=== PATIENT | male | born 1950 | race Caucasian/White ===

== ENCOUNTER 2019-05-23 10:33 | Emergency (ER) | payer MEDICARE, MEDICAID, SELFPAY ==
[2019-05-23] VITALS (8 sets, daily range): BP systolic 106–141; BP diastolic 45–83; PULSE 71–81; RESP 18–20; TEMP 36.6; O2SAT 91–95; BMI 53.0
--- NOTE | 2019-05-23 10:43 | ED_ITS ---
Documented by User: PERLITA Bernal 05/25/19 01:18 HPI - Extremity Problem General: Chief complaint: Extremity Problem,Nontraumatic Stated complaint: right toe wound Time Seen by Provider: 05/23/19 10:43 History of Present Illness: HPI Narrative: Patient is a 68-year-old male comes in with a wound on his right great toe. He has a past medical history of diabetes, hypertension and COPD. Patient noticed wound on Thursday. He denies any fever or chills or pain with wound. Patient states he has diabetic neuropathy in his feet and has no sensation to feet. Denies any chest pain, shortness of breath, upper respiratory symptoms, abdominal pain, nausea, vomiting, dysuria, hematuria, diarrhea, constipation, blood in stool. Review of Systems General: Reports: 10 or more systems reviewed and unremarkable except in HPI and below PFSH ED PFSH: Statuses (acute, chronic, etc) shown below reflect problem list status as previously entered and may not be historically accurate Social History Smoking and tobacco status: current every day smoker Physical Exam Const: COMMON NORMALS: oriented x3 HENMT: COMMON NORMALS: normocephalic HEAD & SCALP: normocephalic MOUTH: oral and palatal mucosa normal THROAT: posterior oropharynx normal and uvula midline Neck/C-Spine: COMMON NORMALS: supple GENERAL: Yes normal visual inspection Resp: COMMON NORMALS: normal respiratory effort, no retractions, no use of accessory muscles and clear to auscultation bilaterally AUSCULTATION: clear to auscultation bilaterally and diminished lung sounds (mild) bilateral Cardio: COMMON NORMALS: regular rate, regular rhythm, S1 normal heart sound, S2 normal heart sound, no gallops, no clicks, no murmurs and peripheral pulses 2+ throughout RATE: regular rate RHYTHM: regular rhythm HEART SOUNDS: S1 normal and S2 normal PERIPHERAL PULSES: pulses 2+ throughout GI: COMMON NORMALS: normal to inspection, nondistended, normoactive bowel sounds, soft to palpation, non-tender and no masses PALPATION: Yes soft : COMMON NORMALS: Yes no CVA tenderness BLADDER/KIDNEY EXAM: Yes no CVA tenderness Back/Pelvis: COMMON NORMALS: no CVA tenderness Extremity: NARRATIVE EXTREMITY EXAM: Patient has an ulcer on right big toe. There is some necrotic skin tissue over the proximal phalanx of the great toe in goes up to first MP joint. There is erythema, warmth and swelling that has moved up into the foot and some erythema and warmth to lower leg. Patient felt tenderness upon palpation above the right ankle in the Right lower leg. RIGHT LOWER EXTREMITY: Yes foot & digits (Ulcer to right great toe. Necrotic skin tissue, erythema and warmth) Right foot and digits: Yes inspection, Yes palpation (no pain or sensation to foot upon palpation.), Yes ROM (normal) and Yes neurovascular exam (vascular intact, no sensation to foot) Neuro: COMMON NORMALS: oriented x3 and moves all extremities Course ED course: I spoke with Dr. Livingston about patient's case. He told me to give IV Vancomycin and then put him in for a Wound clinic referral. Vital Signs: Vital signs: Vital Signs Temperature 97.9 F 05/23/19 10:34 Pulse Rate 72 05/23/19 14:36 Respiratory Rate 18 05/23/19 14:36 Blood Pressure 118/71 05/23/19 14:36 Pulse Oximetry 91 05/23/19 14:36 MDM - Extremity (Nontraumatic) Lab Data: Attestation: I reviewed the patient's lab results. Labs: Lab Results 05/23/19 05/23/19 05/23/19 Range/Units 11:17 11:17 11:17 WBC 17.3 H (4.0-10.0) 10^3/ uL RBC 4.97 (4.1-5.3) 10^6/u L Hgb 14.6 (11.7-16.6) g/dL Hct 44.2 (42.0-52.0) % MCV 88.9 (80-94) fL MCH 29.4 (28.0-34.0) pg MCHC 33.0 (30.0-36.0) g/dL RDW 13.1 (12.1-15.1) % Plt Count 283 (130-400) 10^3/c mm MPV 10.7 H (7.4-10.4) fL Neut % (Auto) 83.6 % Lymph % (Auto) 7.5 % [place] % (Auto) 7.4 % Eos % (Auto) 0.9 % Baso % (Auto) 0.2 % Neut # (Auto) 14.4 H (1.8-7.7) 10^3/u L Lymph # (Auto) 1.3 (0.8-4.8) 10^3/u L [place] # (Auto) 1.3 H (0.2-0.9) 10^3/u L Eos # (Auto) 0.2 (0.0-0.8) 10^3/u L Baso # (Auto) 0.0 (0.0-0.1) 10^3/u L Nucleated RBC % (a uto) 0 % Nucleated RBCs # 0.0 /100WBC ESR 71 H (0-10) mm/hr Sodium 130 L (136-145) mmol/L Potassium 4.8 (3.5-5.1) mmol/L Chloride 91 L (98-107) mmol/L Carbon Dioxide 23 (22-29) mmol/L Anion Gap 20.8 H (5-19) BUN 29 H (8-23) mg/dL Creatinine 1.7 H (0.7-1.2) mg/dL GFR Calculation 40.3 L (90-130) mL/min Glucose 324 H (74-106) mg/dL Calcium 9.7 (8.8-10.2) mg/Dl Total Bilirubin 0.3 (0.15-1.2) mg/dL AST 15 (0-40) U/L ALT 18 (0-41) U/L Alkaline Phosphata se 110 (40-130) IU/L C-Reactive Protein 136.4 H (0.0-4.9) mg/L Total Protein 7.6 (6.6-8.7) g/dL Albumin 3.4 L (3.5-5.2) g/dL Globulin 4.2 (1.3-4.6) g/dL Procalcitonin 0.25 (0-0.8) ng/mL Imaging Data^: US Vascular: Attestation: I personally reviewed and interpreted this imaging study as follows: (I reviewed the results the laboratory mechanic helper gave to me.) My impression: Below are the results I received from the US tech. Right Ankle Brachial index results Right Brachial :106 ankle (PT) 77 index 0.66 Ankle (DP) 85 Index 0.73 Left Brachial :116 ankle (PT) 98 index 0.84 Ankle (DP) 83 Index 0.72 Xray Ortho: Radiologist's impression: [address] [address] XRay Report Signed Patient: Cecilio Díaz Unit #: [id number] : 1950 Age/Sex: 68 / M ADM Date: 05/23/19 Loc: ER Room/Bed: Attending Dr: Ordering Provider/Ordering MD: Gadiel Romo Date of Service: 05/23/19 Procedure(s): XR foot RT 2V 88720 Accession Number(s): [id number] Report Number: [id number] WS: [id number] RIGHT FOOT: 2 VIEW(S) TECHNIQUE: PA and lateral. HISTORY: Big toe diabetic ulcer and infection COMPARISON: None available. No acute fracture or dislocation. Soft tissue ulceration over the distal first toe measures 11 x 11 mm. Soft tissue defect extends to the terminal tuft of the first toe. No definite osteomyelitis although there is some osteopenia. No foreign bodies. XR/XR foot RT 2V 85531 IMPRESSION: 1. Soft tissue ulceration over the distal first toe measures 11 x 11 mm. Ulceration extends to the terminal tuft. 2. Cannot confirm osteomyelitis radiographically. Dictated By: Rosio Shah DO Signed By: Rosio Shah DO Signed Date/Time: 05/23/19 1209 DD/ 1207 Discharge Plan Discharge Patient Disposition: Home, Self-Care Clinical Impression: Diabetic ulcer of foot associated with diabetes mellitus due to underlying condition, limited to breakdown of skin Qualifiers: Diabetic foot ulcer location: toe Laterality: right Qualified Code(s): E08.621 - Diabetes mellitus due to underlying condition with foot ulcer Condition: Stable Prescriptions: New levofloxacin 750 mg tablet 750 mg PO DAILY 14 Days Qty: 14 RF: 0 No Action meloxicam 15 mg tablet 15 mg PO DAILY RF: 0 metformin 1,000 mg tablet 1,000 mg PO BID RF: 0 glimepiride 4 mg tablet 4 mg PO BID RF: 0 hydrochlorothiazide 25 mg tablet 25 mg PO DAILY RF: 0 ergocalciferol (vitamin D2) [Vitamin D2] 50,000 unit Capsule See Rx Instructions .ROUTE .COMPLEX RF: 0 Ventolin HFA 90 mcg/actuation HFA aerosol inhaler 1 puff INHALATION QID PRN (Reason: Shortness Of Breath) RF: 0 fluoxetine 20 mg capsule 20 mg PO DAILY RF: 0 dicyclomine 10 mg capsule 10 mg PO TID RF: 0 metoprolol tartrate 25 mg tablet 25 mg PO BID RF: 0 Xopenex HFA 45 mcg/actuation HFA aerosol inhaler 2 puff INHALATION QID RF: 0 Symbicort 160-4.5 mcg/actuation HFA aerosol inhaler 2 puff INHALATION BID RF: 0 Invokana 300 mg tablet 300 mg PO DAILY RF: 0 Discharge Orders: Discharge Order (Routine); Ordered 05/23/19 Ordered By: Gadiel Romo Referrals: Ector Peña MD [Family Provider] - Discharge Diet: Regular Discharge Activity: Increase activity as tolerated Patient Instructions: Levofloxacin (By mouth), Wound Infection (ED), Chronic Wound Care (ED), Wound Healing and Your Diet (ED) Activity Restrictions/Additional Instructions: Clinic will be calling you to set up an appointment to evaluate and treat wound on right foot. Take full course of antibiotics as prescribed. Drink plenty of fluids and take Tylenol for fever control. Discharge Date/Time: 05/23/19 14:55 Coding Level of Care Code ED Outbound Sales Specialist for Chg Fwd Documented by User: Jean Anne DO 05/25/19 06:44 HPI - Extremity Problem General: Chief complaint: Extremity Problem,Nontraumatic Stated complaint: right toe wound Time Seen by Provider: 05/23/19 10:43 PFSH ED PFSH: Statuses (acute, chronic, etc) shown below reflect problem list status as previously entered and may not be historically accurate Social History Smoking and tobacco status: current every day smoker Course Vital Signs: Vital signs: Vital Signs Temperature 97.9 F 05/23/19 10:34 Pulse Rate 72 01/20/20 14:36 Respiratory Rate 18 05/23/19 14:36 Blood Pressure 118/71 05/23/19 14:36 Pulse Oximetry 91 05/23/19 14:36 MDM - Extremity (Nontraumatic) Lab Data: Labs: Lab Results 05/23/19 05/23/19 05/23/19 Range/Units 11:17 11:17 11:17 WBC 17.3 H (4.0-10.0) 10^3/ uL RBC 4.97 (4.1-5.3) 10^6/u L Hgb 14.6 (11.7-16.6) g/dL Hct 44.2 (42.0-52.0) % MCV 88.9 (80-94) fL MCH 29.4 (28.0-34.0) pg MCHC 33.0 (30.0-36.0) g/dL RDW 13.1 (12.1-15.1) % Plt Count 283 (130-400) 10^3/c mm MPV 10.7 H (7.4-10.4) fL Neut % (Auto) 83.6 % Lymph % (Auto) 7.5 % [place] % (Auto) 7.4 % Eos % (Auto) 0.9 % Baso % (Auto) 0.2 % Neut # (Auto) 14.4 H (1.8-7.7) 10^3/u L Lymph # (Auto) 1.3 (0.8-4.8) 10^3/u L [place] # (Auto) 1.3 H (0.2-0.9) 10^3/u L Eos # (Auto) 0.2 (0.0-0.8) 10^3/u L Baso # (Auto) 0.0 (0.0-0.1) 10^3/u L Nucleated RBC % (a uto) 0 % Nucleated RBCs # 0.0 /100WBC ESR 71 H (0-10) mm/hr Sodium 130 L (136-145) mmol/L Potassium 4.8 (3.5-5.1) mmol/L Chloride 91 L (98-107) mmol/L Carbon Dioxide 23 (22-29) mmol/L Anion Gap 20.8 H (5-19) BUN 29 H (8-23) mg/dL Creatinine 1.7 H (0.7-1.2) mg/dL GFR Calculation 40.3 L (90-130) mL/min Glucose 324 H (74-106) mg/dL Calcium 9.7 (8.8-10.2) mg/Dl Total Bilirubin 0.3 (0.15-1.2) mg/dL AST 15 (0-40) U/L ALT 18 (0-41) U/L Alkaline Phosphata se 110 (40-130) IU/L C-Reactive Protein 136.4 H (0.0-4.9) mg/L Total Protein 7.6 (6.6-8.7) g/dL Albumin 3.4 L (3.5-5.2) g/dL Globulin 4.2 (1.3-4.6) g/dL Procalcitonin 0.25 (0-0.8) ng/mL Discharge Plan Discharge Patient Disposition: Home, Self-Care Clinical Impression: Diabetic ulcer of foot associated with diabetes mellitus due to underlying condition, limited to breakdown of skin Qualifiers: Diabetic foot ulcer location: toe Laterality: right Qualified Code(s): E08.621 - Diabetes mellitus due to underlying condition with foot ulcer Condition: Stable Prescriptions: New levofloxacin 750 mg tablet 750 mg PO DAILY 14 Days Qty: 14 RF: 0 No Action meloxicam 15 mg tablet 15 mg PO DAILY RF: 0 metformin 1,000 mg tablet 1,000 mg PO BID RF: 0 glimepiride 4 mg tablet 4 mg PO BID RF: 0 hydrochlorothiazide 25 mg tablet 25 mg PO DAILY RF: 0 ergocalciferol (vitamin D2) [Vitamin D2] 50,000 unit Capsule See Rx Instructions .ROUTE .COMPLEX RF: 0 Ventolin HFA 90 mcg/actuation HFA aerosol inhaler 1 puff INHALATION QID PRN (Reason: Shortness Of Breath) RF: 0 fluoxetine 20 mg capsule 20 mg PO DAILY RF: 0 dicyclomine 10 mg capsule 10 mg PO TID RF: 0 metoprolol tartrate 25 mg tablet 25 mg PO BID RF: 0 Xopenex HFA 45 mcg/actuation HFA aerosol inhaler 2 puff INHALATION QID RF: 0 Symbicort 160-4.5 mcg/actuation HFA aerosol inhaler 2 puff INHALATION BID RF: 0 Invokana 300 mg tablet 300 mg PO DAILY RF: 0 Discharge Orders: Discharge Order (Routine); Ordered 05/23/19 Ordered By: Gadiel Romo Referrals: Ector Peña MD [Family Provider] - Discharge Diet: Regular Discharge Activity: Increase activity as tolerated Patient Instructions: Levofloxacin (By mouth), Wound Infection (ED), Chronic Wound Care (ED), Wound Healing and Your Diet (ED) Activity Restrictions/Additional Instructions: Clinic will be calling you to set up an appointment to evaluate and treat wound on right foot. Take full course of antibiotics as prescribed. Drink plenty of fluids and take Tylenol for fever control. Discharge Date/Time: 05/23/19 14:55 Coding Level of Care Code ED Outbound Sales Specialist for Nirmala Patel
--- NOTE | 2019-05-23 10:53 | XR_ITS ---
WS: [id number] RIGHT FOOT: 2 VIEW(S) TECHNIQUE: PA and lateral. HISTORY: Big toe diabetic ulcer and infection COMPARISON: None available. No acute fracture or dislocation. Soft tissue ulceration over the distal first toe measures 11 x 11 mm. Soft tissue defect extends to t he terminal tuft of the first toe. No definite osteomyelitis although there is some osteopenia. No foreign bodies. XR/XR foot RT 2V 35402 IMPRESSION: 1. Soft tissue ulceration over the distal first toe measures 11 x 11 mm. Ulcer ation extends to the terminal tuft. 2. Cannot confirm osteomyelitis radiographically.
--- NOTE | 2019-05-23 11:02 | PC.NURSE ---
xray at bedside
--- NOTE | 2019-05-23 11:05 | USCV_ITS ---
Cecilio Díaz Age: 68 Gender: M : 1950 Exam Date: 05/23/2019 11:06 Ordering Phys: Gadiel Romo Technologist: Exam [place] [facility] [place] Indication: non healing ulcer RIGHT LEFT Brachial 106.00 mmHg Brachial 116.00 mmHg Pressure (mmHg) Waveform Pressure (mmHg) Waveform 77.00 DATABASE OPERATOR 98.00 85.00 DPA 83.00 0.73 Ankle/Brachial Index 0.84 FINDINGS Resting KATE of 0.73 on the right side and 0.84 on the left side CONCLUSIONS Abnormal resting ABIs bilaterally, suggestive of moderate peripheral artery disease on the right side and mild to moderate disease on the left side Dr Izzy De Leon MD [facility] (Electronically Signed) Final Date: 24 May 2019 07:40 S
[2019-05-23 11:23] LABS: Basophils % 0.2 %; Eosinophils # 0.2 10^3/uL (0.0-0.8); Eosinophils % 0.9 %; Hematocrit 44.2 % (42.0-52.0); Hemoglobin 14.6 g/dL (11.7-16.6); Lymphocytes # 1.3 10^3/uL (0.8-4.8); Lymphocytes % 7.5 %; Mean Corpuscular Hemoglobin 29.4 pg (28.0-34.0); Mean Corpuscular Volume 88.9 fL (80-94); Mean Platelet Volume 10.7 fL (7.4-10.4); Monocytes # 1.3 10^3/uL (0.2-0.9); Monocytes % 7.4 %; Neutrophils # 14.4 10^3/uL (1.8-7.7); Neutrophils % 83.6 %; Nucleated Red Blood Cells % 0 %; Platelet Count 283 10^3/cmm (130-400); Red Blood Count 4.97 10^6/uL (4.1-5.3); Red Cell Distribution Width 13.1 % (12.1-15.1); White Blood Count 17.3 10^3/uL (4.0-10.0)
--- NOTE | 2019-05-23 11:29 | PC.NURSE ---
US performed at bedside
[2019-05-23 11:40] LABS: Alanine Aminotransferase 18 U/L (0-41); Albumin Level 3.4 g/dL (3.5-5.2); Alkaline Phosphatase 110 IU/L (40-130); Anion Gap 20.8 (5-19); Aspartate Amino Transferase 15 U/L (0-40); Blood Urea Nitrogen 29 mg/dL (8-23); C Reactive Protein 136.4 mg/L (0.0-4.9); Calcium 9.7 mg/Dl (8.8-10.2); Carbon Dioxide 23 mmol/L (22-29); Chloride 91 mmol/L (98-107); Globulin 4.2 g/dL (1.3-4.6); Glomerular Filtration Rate 40.3 mL/min (90-130); Glucose 324 mg/dL (74-106); Potassium 4.8 mmol/L (3.5-5.1); Sodium 130 mmol/L (136-145); Total Bilirubin 0.3 mg/dL (0.15-1.2); Total Protein 7.6 g/dL (6.6-8.7)
[2019-05-23 12:01] LABS: Procalcitonin 0.25 ng/mL (0-0.8)
[2019-05-23 12:47] LABS: Erythrocyte Sedimentation Rate 71 mm/hr (0-10)
[2019-05-23] MEDS: sodium chloride 0.9% 500 ML IV (13:29)
[2019-05-23] MEDS: piperacillin-tazobactam 4.5 GM in sodium chloride 0.9% (plus) 50 ML IV (13:46)
--- NOTE | 2019-05-24 10:50 | DCPLANNER ---
clubhouse manager was asked to schedule a follow up appointment for patient with wound care. clubhouse manager called the Wound Care clinic, spoke with Екатерина, a follow up appointment is scheduled for Saturday, May 25, 2019 at 10:00 with Latoya JOHNSON. clubhouse manager called patient and gave patient the appointment information.
--- NOTE | 2019-05-30 11:58 | DCPLANNER ---
Patient did not attend appointment scheduled for 05.25.19 with Wound Care.
== END 2019-05-23 14:55 | disposition home or self-care (01) ==
PROVIDERS: Emergency Provider Physician Assistant; Family Provider Internal Medicine
DX: E11.621 Type 2 diabetes mellitus with foot ulcer (principal); L97.519 Non-pressure chronic ulcer of other part of right foot with unspecified severity; Z79.84 Long term (current) use of oral hypoglycemic drugs; F17.210 Nicotine dependence, cigarettes, uncomplicated; I10 Essential (primary) hypertension; J44.9 Chronic obstructive pulmonary disease, unspecified
CPT/HCPCS: 36415; 73620; 80053; 84145; 85025; 85651; 86140; 87040; 87070; 87077; 87186; 87205; 93922; 96360; 96365; 96366; 99282; J2543; J3370; J7040

== ENCOUNTER 2019-06-23 14:20 | Inpatient (IN) | payer MEDICARE, MEDICAID, SELFPAY ==
[2019-06-23] VITALS (9 sets, daily range): BP systolic 137–180; BP diastolic 58–80; PULSE 61–75; RESP 16–18; TEMP 36.3–36.4; O2SAT 92–96; BMI 49.6
--- NOTE | 2019-06-23 16:20 | W.ED.EXTPRO ---
HPI - Extremity Problem General: Chief complaint: Extremity Problem,Nontraumatic Stated complaint: worsening foot infection Time Seen by Provider: 06/23/19 16:15 Review of Systems Psych: Denies: sleeping more PFSH ED PFSH: Social History (Updated 05/25/19 @ 10:56 by CARLOS Louise) Smoking and tobacco status: current every day smoker Alcohol intake: never Course Vital Signs: Vital signs: Vital Signs Temperature 97.6 F 06/23/19 14:51 Pulse Rate 75 06/23/19 14:51 Respiratory Rate 18 06/23/19 14:51 Blood Pressure 137/58 06/23/19 14:51 Pulse Oximetry 93 06/23/19 14:51 Discharge Plan Discharge Prescriptions: No Action metoprolol tartrate 25 mg tablet 25 mg PO BID 90 Days Qty: 180 RF: 3 metformin 1,000 mg tablet 1,000 mg PO BID Qty: 60 RF: 3 meloxicam 15 mg tablet 15 mg PO DAILY Qty: 90 RF: 3 hydrochlorothiazide 25 mg tablet 25 mg PO DAILY Qty: 90 RF: 3 glimepiride 4 mg tablet 4 mg PO BID RF: 0 ergocalciferol (vitamin D2) [Vitamin D2] 50,000 unit Capsule See Rx Instructions .ROUTE .COMPLEX RF: 0 Ventolin HFA 90 mcg/actuation HFA aerosol inhaler 1 puff INHALATION QID PRN (Reason: Shortness Of Breath) RF: 0 fluoxetine 20 mg capsule 20 mg PO DAILY RF: 0 dicyclomine 10 mg capsule 10 mg PO TID RF: 0 Xopenex HFA 45 mcg/actuation HFA aerosol inhaler 2 puff INHALATION QID RF: 0 Symbicort 160-4.5 mcg/actuation HFA aerosol inhaler 2 puff INHALATION BID RF: 0 Invokana 300 mg tablet 300 mg PO DAILY RF: 0 Coding Level of Care Code ED Trade Sales Assistant for Nirmala Patel
--- NOTE | 2019-06-23 16:21 | XR_ITS ---
WS: [id number] XR foot RT min 3V* [id number] REASON FOR EXAM: toe cellulitis FINDINGS: Soft tissue swelling surrounding the phalanx of the first digit irregularity and there appe ars to be a laceration along the distal aspects. These changes are increased since previous exam of J anuary 2011. There is a small soft tissue distention which may represent a small abscess measures 1.6 cm along the medial proximal first phalanx. A tailor's bunion is seen. Spurring off the talus anteriorly is noted. There is reabsorption of the cuneiforms anteriorly also. A large calcaneal spur is evident. XR/XR foot RT min 3V* 43022 IMPRESSION: Irregularity along the great toe with changes since the previous exam suggestin g cellulitis and questionable localized abscess. Calcaneal spur Tailors bunion Spurring off the talus anteriorly.
[2019-06-23] MEDS: vancomycin 1,000 MG in sodium chloride 0.9% 250 ML 250 MG IV (16:52)
[2019-06-23 16:56] LABS: Basophils # 0.1 10^3/uL (0.0-0.1); Basophils % 0.4 %; Eosinophils # 0.2 10^3/uL (0.0-0.8); Eosinophils % 1.4 %; Hematocrit 44.5 % (42.0-52.0); Hemoglobin 14.2 g/dL (11.7-16.6); Lymphocytes # 1.8 10^3/uL (0.8-4.8); Lymphocytes % 15.1 %; Mean Corpuscular HGB Conc 31.9 g/dL (30.0-36.0); Mean Corpuscular Hemoglobin 28.7 pg (28.0-34.0); Mean Corpuscular Volume 90.1 fL (80-94); Mean Platelet Volume 11.3 fL (7.4-10.4); Monocytes # 0.9 10^3/uL (0.2-0.9); Monocytes % 7.4 %; Neutrophils % 75.4 %; Nucleated Red Blood Cells % 0 %; Platelet Count 308 10^3/cmm (130-400); Red Blood Count 4.94 10^6/uL (4.1-5.3); Red Cell Distribution Width 13.1 % (12.1-15.1)
--- NOTE | 2019-06-23 17:23 | ED_ITS ---
Entered by Veronika Caraballo, acting as scribe for Dao James MD Jun 23, 2019 14:20 HPI - Extremity Problem General: Chief complaint: Extremity Problem,Nontraumatic Stated complaint: worsening foot infection Time Seen by Provider: 06/23/19 16:15 Source: patient Mode of arrival: EMS Limitations: no limitations History of Present Illness: HPI Narrative: 68 yo male presents with R great toe infection. pt states the home health nurse has been taking care of his toe but she sent him to ED for infection and redness. pt states he has not seen a doctor yet for this. pt has drainage from toe. pt denies any other symptoms at this time. MD Complaint: extremity pain and extremity swelling (R great toe infection and wound) Onset (ago): day(s) (several days ago) Pain Consistency: constant Location: lower extremity and toe (R great toe) Relieving factors: nothing Exacerbating factors: range of motion, walking, exertion and other (redness and infection) Associated symptoms: Reports no associated symptoms; Deny chest pain, fever(s) or rash Review of Systems Const: Denies: fever, chills, body aches or change in appetite Eyes: Denies: blurry vision or eye discomfort ENMT: Denies: throat pain or dental pain Card: Denies: chest pain Resp: Denies: shortness of breath GI: Denies: abdominal pain, nausea, vomiting or diarrhea : Denies: painful urination Musc: Denies: neck pain or back pain Skin/Breast: Denies: rash Neuro: Denies: headache Psych: Denies: sleeping more Mega/Lymph: Denies: easy bruising All/Imm: Denies: hives PFS ED PFSH: Social History (Updated 05/25/19 @ 10:56 by CARLOS Louise) Smoking and tobacco status: current every day smoker Alcohol intake: never Physical Exam Const: COMMON NORMALS: no apparent distress, oriented x3 and healthy appearing HENMT: COMMON NORMALS: normocephalic and head/scalp atraumatic HEAD & SCALP: normocephalic and atraumatic Eye: COMMON NORMALS: PERRL and EOMs intact bilaterally PUPIL: Yes PERRL Neck/C-Spine: COMMON NORMALS: full ROM and supple Chest: COMMONS NORMALS: inspection of chest normal and palpation of chest normal Resp: COMMON NORMALS: normal respiratory effort, no retractions, no use of accessory muscles and clear to auscultation bilaterally AUSCULTATION: clear to auscultation bilaterally Cardio: COMMON NORMALS: regular rate, regular rhythm and no murmurs RATE: regular rate RHYTHM: regular rhythm GI: COMMON NORMALS: normal to inspection, nondistended, normoactive bowel sounds, soft to palpation, non-tender and no masses PALPATION: Yes soft Extremity: RIGHT LOWER EXTREMITY: Yes foot & digits (redness and swelling to R great toe) OTHER: Large ulcer to right toe with foul smell Neuro: COMMON NORMALS: oriented x3, moves all extremities and no focal motor deficits Psych: COMMON NORMALS: mental status grossly normal, thought process normal and cooperative THOUGHT PROCESS: normal thought process Course Vital Signs: Vital signs: Vital Signs Temperature 97.6 F 06/23/19 14:51 Pulse Rate 61 06/23/19 17:00 Respiratory Rate 18 06/23/19 17:00 Blood Pressure 152/76 06/23/19 16:44 Pulse Oximetry 95 06/23/19 17:00 MDM - Extremity (Nontraumatic) MDM Narrative: Medical decision making narrative: Patient presents here with ulcer to his right great toe that is worsening with cellulitis. Patient started on IV antibiotics here and I spoke to hospitalist along with Dr. Mac who is to see patient tonight. Patient has been stable while here with no signs of septic shock. Lab Data: Labs: Lab Results 06/23/19 06/23/19 Range/Units 16:43 17:15 WBC 12.0 H (4.0-10.0) 10^3/ uL RBC 4.94 (4.1-5.3) 10^6/u L Hgb 14.2 (11.7-16.6) g/dL Hct 44.5 (42.0-52.0) % MCV 90.1 (80-94) fL MCH 28.7 (28.0-34.0) pg MCHC 31.9 (30.0-36.0) g/dL RDW 13.1 (12.1-15.1) % Plt Count 308 (130-400) 10^3/c mm MPV 11.3 H (7.4-10.4) fL Neut % (Auto) 75.4 % Lymph % (Auto) 15.1 % [place] % (Auto) 7.4 % Eos % (Auto) 1.4 % Baso % (Auto) 0.4 % Neut # (Auto) 9.0 H (1.8-7.7) 10^3/u L Lymph # (Auto) 1.8 (0.8-4.8) 10^3/u L [place] # (Auto) 0.9 (0.2-0.9) 10^3/u L Eos # (Auto) 0.2 (0.0-0.8) 10^3/u L Baso # (Auto) 0.1 (0.0-0.1) 10^3/u L Nucleated RBC % (a uto) 0 % Nucleated RBCs # 0.0 /100WBC Sodium 133 L (136-145) mmol/L Potassium 5.1 (3.5-5.1) mmol/L Chloride 94 L (98-107) mmol/L Carbon Dioxide 27 (22-29) mmol/L Anion Gap 17.1 (5-19) BUN 24 H (8-23) mg/dL Creatinine 2.0 H (0.7-1.2) mg/dL GFR Calculation 33.4 L (90-130) mL/min Glucose 244 H (65-115) mg/dL Calculated Osmolal ity 281 L (285-295) mOsm/k g Calcium 10.0 (8.5-10.5) mg/dL Imaging Data^: xr right foot: Attestation: I personally reviewed and interpreted this imaging study as follows: Radiologist's impression: Patient: Cecilio Díaz Unit #: [id number] : 1950 Age/Sex: 68 / M ADM Date: 06/23/19 Loc: ER Room/Bed: Attending Dr: Ordering Provider/Ordering MD: Dao James MD Date of Service: 06/23/19 Procedure(s): XR foot RT min 3V* 14855 Accession Number(s): [id number] Report Number: [id number] WS: [id number] XR foot RT min 3V* [id number] REASON FOR EXAM: toe cellulitis FINDINGS: Soft tissue swelling surrounding the phalanx of the first digit irregularity and there appears to be a laceration along the distal aspects. These changes are increased since previous exam of May 23, 2011. There is a small soft tissue distention which may represent a small abscess measures 1.6 cm along the medial proximal first phalanx. A tailor's bunion is seen. Spurring off the talus anteriorly is noted. There is reabsorption of the cuneiforms anteriorly also. A large calcaneal spur is evident. XR/XR foot RT min 3V* [id number] IMPRESSION: Irregularity along the great toe with changes since the previous exam suggesting cellulitis and questionable localized abscess. Calcaneal spur Tailors bunion Spurring off the talus anteriorly. Discharge Plan Discharge Prescriptions: No Action metoprolol tartrate 25 mg tablet 25 mg PO BID 90 Days Qty: 180 RF: 3 metformin 1,000 mg tablet 1,000 mg PO BID Qty: 60 RF: 3 meloxicam 15 mg tablet 15 mg PO DAILY Qty: 90 RF: 3 hydrochlorothiazide 25 mg tablet 25 mg PO DAILY Qty: 90 RF: 3 glimepiride 4 mg tablet 4 mg PO BID RF: 0 ergocalciferol (vitamin D2) [Vitamin D2] 50,000 unit Capsule See Rx Instructions .ROUTE .COMPLEX RF: 0 Ventolin HFA 90 mcg/actuation HFA aerosol inhaler 1 puff INHALATION QID PRN (Reason: Shortness Of Breath) RF: 0 fluoxetine 20 mg capsule 20 mg PO DAILY RF: 0 dicyclomine 10 mg capsule 10 mg PO TID RF: 0 Xopenex HFA 45 mcg/actuation HFA aerosol inhaler 2 puff INHALATION QID RF: 0 Symbicort 160-4.5 mcg/actuation HFA aerosol inhaler 2 puff INHALATION BID RF: 0 Invokana 300 mg tablet 300 mg PO DAILY RF: 0 Coding Level of Care Code ED Education Courses Sales Representative for Chg Fwd Exam Comprehensive The documentation recorded by the Ilya yoon Bridget Annette, accurately r eflects the service I personally performed and the decisions made by Jacob amaya Korby, MD Jun 23, 2019 14:20
[2019-06-23 17:39] LABS: Anion Gap 17.1 (5-19); Blood Urea Nitrogen 24 mg/dL (8-23); Carbon Dioxide 27 mmol/L (22-29); Chloride 94 mmol/L (98-107); Creatinine Clr Calc Pharmacy 42.4712; Glomerular Filtration Rate 33.4 mL/min (90-130); Glucose 244 mg/dL (65-115); Osmolality Calculated 281 mOsm/kg (285-295); Potassium 5.1 mmol/L (3.5-5.1); Sodium 133 mmol/L (136-145)
--- NOTE | 2019-06-23 18:51 | P.HP_ITS ---
Providers/Chief Complaint Admitting Physician: Danny Hall Chief Complaint: r foot infection History of Present Illness Cecilio Díaz is a 68 year old pleasant gentleman with history of diabetes, hypertension, COPD, current smoker of 1 pack/day, recently with infection of toe of the right foot, having undergone a course of antibiotic 4 weeks ago with improvement in symptoms, again experienced worsening of symptoms starting 2 to 3 weeks ago, about 1 week ago noticed purulent drainage in the first toe of the right foot. Drainage had somewhat subsided, however, the toe continued to become swollen, reddish, and in the last day and 1/2 to 2 days has become open, with areas of cornified skin cracking, open ulceration without definitive shape, circumferential swelling, erythema, and foul-smelling. He denies any fever. D enies history of prior infection in the bone. He does not work barefoot at home, however, does soak his feet. He has been applying a topical antibiotic. Review of Systems Const: Denies: fever, chills, body aches or malaise Eyes: Denies: change in vision or eye redness ENMT: Denies: throat pain, oral sores/lesions or ear pain Card: Denies: chest pain, edema, pre-syncope or shortness of breath on exertion Resp: Denies: shortness of breath, productive cough, change in phlegm color or coughing up blood GI: Denies: abdominal pain, nausea, vomiting, diarrhea, constipation, blood in stool or black tarry stool : Denies: flank pain, difficulty urinating, urinary frequency or blood in urine Musc: Denies: back pain, joint swelling or redness Skin/Breast: Reports: rash, sores (First toe right foot) and new lesion Neuro: Denies: headache, numbness in extremities, weakness in extremities, dizziness, confusion or seizure-like activity Endo: Denies: excessive urination or excessive thirst Mega/Lymph: Denies: easy bleeding or purpura All/Imm: Denies: hives, throat swelling or tongue swelling Medications/Allergies Allergies Allergy/AdvReac Type Severity Reaction Status Date / Time No Known Allergies Allergy Verified 05/25/19 10:53 PFSH Acute PFSH: Medical History COPD (chronic obstructive pulmonary disease) Diabetes HTN (hypertension) Smoking addiction Surgical History No history of previous surgery Family History Other Healthy adult Social History Smoking and tobacco status: current every day smoker cigarettes Packs smoked per day: 1 Alcohol intake: never Substance/Drug Use: never Lives independently: Yes Household members: none Marital status: Single Current occupational status: retired Vitals/I&O/Wt Last Vital Signs Temp 97.6 F 06/23/19 14:51 Pulse 63 06/23/19 18:00 Resp 16 06/23/19 18:00 BP 180/80 06/23/19 18:00 Pulse Ox 95 06/23/19 18:00 Weight last 48 hrs Weight 127.006 kg Physical Exam Const: COMMON NORMALS: no apparent distress and oriented x3 OTHER: He is slightly hard of hearing, but pleasant and cooperative. He is disheveled with poor hygiene. HENMT: COMMON NORMALS: oropharynx normal TEETH & GINGIVA: Yes poor dentition Neck/C-Spine: COMMON NORMALS: no JVD Resp: COMMON NORMALS: normal respiratory effort and clear to auscultation bilaterally AUSCULTATION: clear to auscultation bilaterally and wheezes (Mild wheeze on the left) Cardio: COMMON NORMALS: no JVD, regular rhythm, S1 normal heart sound, S2 normal heart sound and no murmurs RHYTHM: regular rhythm HEART SOUNDS: S1 normal and S2 normal GI: COMMON NORMALS: normal to inspection, nondistended, normoactive bowel sounds, soft to palpation and non-tender PALPATION: Yes soft Extremity: COMMON NORMALS: no joint enlargement and no pedal edema RIGHT LOWER EXTREMITY: Yes foot & digits Right foot and digits: Yes other (Right first toe with circumferential swelling, open ulcerations, cornified cracked skin, fou l-smelling currently no drainage) Neuro: COMMON NORMALS: oriented x3 and moves all extremities Skin: COMMON NORMALS: no rashes or lesions noted RASHES: rashes noted (Cracked, edematous first right toe, with open ulcerations) WOUNDS: Yes wounds noted (First right toe with large areas of cracked skin, ulceration, w hitish cornified skin around the toenail,) Data : 06/23/19 16:43 06/23/19 17:15 Micro: Microbiology 06/23/19 16:43 Blood Culture - Preliminary Blood SPECIMEN COLLECTED 06/23/19 16:43 Blood Culture - Preliminary Blood SPECIMEN COLLECTED A&P Assessment and plan (1) Diabetic foot infection: Swollen, erythematous first right toe, with cracking of skin, multiple toes, thick cornified skin around the nail, currently no drainage, however, foul smell. He was soaking his feet at home, thus I would be concerned about possible pseudomonal involvement he received vancomycin in ER. Will continue. Will request wound culture. Blood cultures have been ordered. We will add the Zosyn and ciprofloxacin concern for possible pseudomonal infection. He denies any allergies. Appreciate podiatry assessment. Purulent drainage about a week ago he says this is some subsided, but still had something draining from there occasionally. May benefit from additional assessment for osteomyelitis. Requested for surgical shoe. Dressing changes with Santyl. Status: Acute Code(s): E11.628 - Type 2 diabetes mellitus with other skin complications; L08.9 - Local infection of the skin and subcutaneous tissue, unspecified (2) Smoking addiction: Discuss smoking cessation for 4 minutes with him. Encouraged him highly to quit given diabetes, hypertension, other underlying risk factors for cardiovascular disease, and with known peripheral vascular disease on recent arterial Doppler study. He verbalized understanding. He is agreeable with nicotine patch, gum for cravings while in the hospital. Status: Acute Code(s): F17.200 - Nicotine dependence, unspecified, uncomplicated (3) Diabetes: A1c back in October was 9.6. He takes oral medication at home, and states that he is adherent with therapy. Consistent carbohydrate diet. Insulin sliding scale while in the hospital. Status: Acute Code(s): E11.9 - Type 2 diabetes mellitus without complications (4) HTN (hypertension): Monitor blood pressures. Continue metoprolol, HCTZ Status: Acute Code(s): I10 - Essential (primary) hypertension (5) COPD (chronic obstructive pulmonary disease): Very mild wheeze on examination. Continue home inhalers. Continue to smoking cessation per Status: Acute Code(s): J44.9 - Chronic obstructive pulmonary disease, unspecified Attestations Medical Necessity Statement*: Admission of over 2 midnights is going to be required for assessment of management of diabetic foot infection with recurrence requiring IV antibiotics. Coding Level of Care Code Acute Breastfeeding Peer Counselor for [facility] Diagnoses Diabetic foot infection E11.628; L08.9 Smoking addiction F17.200 Diabetes E11.9 HTN (hypertension) I10 COPD (chronic obstructive pulmonary disease) J44.9
--- NOTE | 2019-06-23 20:20 | PC.PHAR ---
Creatinine clearance is 42.4712. Vancomycin is dosed at 1gm IVPB every 24 hours to produce a predicted trough level of 11.92 (population based pharmacokinetic analysis. A trough level has been ordered to be obtained before the fourth dose to confirm and adjust if needed. The Zosyn is dosed at 3.375gm IVPB every 8 hours, each dose to be infused over 4 hours per extended infusion protocol. Pharmacy will follow creatinine clearance levels daily and adjust for proper dosage as needed.
[2019-06-23 20:45] LABS: Glucose Point of Care 190 mg/dL (70-110)
--- NOTE | 2019-06-23 21:09 | P.CONIM_ITS ---
Providers/Reason For Consult Consulting Physican/Specialty*: Hospitalist Reason for Consult*: Right great toe wound Attending Physician: Danny Hall History of Present Illness History of Present Illness Cecilio Díaz is a 68 year old poorly controlled diabetic male with a right great toe wound approximately 1 month in duration. He states that the wound began mid May 2019, he was seen in the emergency department on May 23 for the toe wound and was discharged on oral Levaquin with wound care follow-up. Patient did not keep his wound care appointment. He has had poor compliance with medications and follow-up with healthcare. States that he lives alone in an apartment, does not have family in the area, he moved here from [place]. He states that he reported to the emergency department today due to foul- smelling wound and worsening appearance. Review of Systems General: Reports: 10 or more systems reviewed and unremarkable except in HPI and below Const: Denies: fever or chills Card: Denies: chest pain or palpitations Resp: Denies: productive cough GI: Denies: abdominal pain, nausea or vomiting : Denies: flank pain Musc: Reports: extremity swelling, joint pain, joint stiffness, limited range of motion and deformity Skin/Breast: Reports: skin swelling, sores, nail changes and change in hair Neuro: Reports: numbness in extremities, changes in sensation and difficulty walking Psych: Denies: suicidal ideation Mega/Lymph: Denies: easy bruising Meds/Allergies Home Medications and Allergies Home Medications Medication Instructions Recorded Confirmed Type albuterol sulfate [Ventolin HFA] 1 puff INHALATION QID PRN 05/23/19 06/23/19 History budesonide-formoterol [Symbicort] 2 puff INHALATION BID 05/23/19 06/23/19 History canagliflozin [Invokana] 300 mg PO DAILY 05/23/19 06/23/19 History dicyclomine 10 mg PO TID 05/23/19 06/23/19 History ergocalciferol (vitamin D2) See Rx Instructions .ROUTE .COMPLEX 05/23/19 06/23/19 History [Vitamin D2] fluoxetine 20 mg PO DAILY 05/23/19 06/23/19 History glimepiride 4 mg PO BID 05/23/19 06/23/19 History levalbuterol tartrate [Xopenex HFA] 2 puff INHALATION QID 05/23/19 06/23/19 History Allergies Allergy/AdvReac Type Severity Reaction Status Date / Time No Known Allergies Allergy Verified 05/25/19 10:53 PFSH Acute PFSH: Medical History COPD (chronic obstructive pulmonary disease) Diabetes HTN (hypertension) Smoking addiction Surgical History No history of previous surgery Family History Other Healthy adult Social History Smoking and tobacco status: current every day smoker cigarettes Packs smoked per day: 1 Alcohol intake: never Substance/Drug Use: never Lives independently: Yes Household members: none Marital status: Single Current occupational status: retired Vitals/I&O/Wt Last Vital Signs Temp 97.4 F L 06/23/19 20:00 Pulse 74 06/23/19 20:00 Resp 18 06/23/19 20:03 BP 145/74 06/23/19 20:00 Pulse Ox 92 06/23/19 20:03 Weight last 48 hrs Weight 280 lb Physical Exam Narrative: EXAM NARRATIVE: GENERAL: Patient is alert and oriented ?3 and in no acute distress. The following is a focused bilateral lower extremity exam. VASCULAR: Dorsalis pedis and posterior tibial arteries faintly palpable. Capillary refill time less than 5 seconds to the distal hallux left foot and distal second toe on the right foot, delayed capillary refill to right distal hallux. Calf is supple and nontender proximally and distally. Decreased pedal hair growth and decreased hair growth at the legs bilaterally. Edema to the right hallux. NEUROLOGICAL: Protective sensation intact 0/10 sites, tested with [place] [employer] monofilament to bilateral feet. DERMATOLOGICAL: Full-thickness wound to the right hallux, maximum at the t ip and medial aspect with significant devitalized tissue down to bone, foul- smelling odor, no villa purulence, no proximal lymphangitic streaking however there is periwound erythema. Able to probe to proximal phalanx head at the medial aspect of the wound. No other open wounds noted to the right lower extremity. MUSCULOSKELETAL: No pain to palpation or with debridement of right great toe wound secondary to neuropathy. Ankle joint dorsiflexion to neutral. Pes planus foot type bilaterally. No pain with posterior calf squeeze bilaterally. Data Micro: Micro: Microbiology 06/23/19 16:43 Blood Culture - Pr eliminary Blood SPECIMEN [facility] 06/23/19 16:43 Blood Culture - Pr eliminary Blood SPECIMEN [facility] A&P Assessment and plan (1) Diabetic peripheral neuropathy associated with type 2 diabetes mellitus: Status: Acute Code(s): E11.42 - Type 2 diabetes mellitus with diabetic polyneuropathy (2) Non-pressure chronic ulcer of other part of right foot with necrosis of bone: Status: Acute Code(s): L97.514 - Non-pressure chronic ulcer of other part of right foot with necrosis of bone 68-year-old poorly controlled diabetic male with noncompliance with follow-up and medications. Diminished pedal pulses with ankle-brachial index taken 05/23/2019 demonstrating moderate PAD to the right lower extremity. Full- thickness wound with necrosis of bone to the right hallux. Performed bedside debridement utilizing tissue nippers followed by saline flush and wound culture. New erosive changes at the medial head of the proximal phalanx right hallux compared to previous films, consistent with osteomyelitis. Will not be able to perform right hallux amputation with disarticulation at the metatarsal phalangeal joint and primary closure due to poor soft tissue quality at that level. Patient would require partial first metatarsal amputation for closure vs hallux amputation with secondary healing. I do not have availability to perform this procedure. Coding Level of Care Code Acute Fixing Carpenter for Nirmala Patel Diagnoses Diabetic peripheral neuropathy associated with type 2 diabetes mellitus E11.42 Non-pressure chronic ulcer of other part of right foot with necrosis of bone L97.514 Comment CPT code 25809 and 85741
[2019-06-23] MEDS: nicotine 21 mg Patch 1 PATCH TRANSDERMA (21:36)
[2019-06-23] MEDS: ciprofloxacin 400 MG/200 ML PREMIX 200 MG IV (21:37)
[2019-06-23] MEDS: dicyclomine 10 mg Capsule PO (21:37)
[2019-06-23] MEDS: heparin 5,000 unit/mL INJ 1 mL 5000 UNIT SUBCUT (21:37)
[2019-06-23] MEDS: piperacillin-tazobactam 3.375 GM in sodium chloride 0.9% (plus) 50 ML IV (23:53)
[2019-06-24] VITALS (12 sets, daily range): BP systolic 102–143; BP diastolic 57–80; PULSE 54–78; RESP 16–19; TEMP 36.4–37.1; O2SAT 86–96
[2019-06-24 06:12] LABS: Basophils % 0.2 %; Eosinophils # 0.2 10^3/uL (0.0-0.8); Eosinophils % 1.8 %; Hemoglobin 12.6 g/dL (11.7-16.6); Lymphocytes # 1.7 10^3/uL (0.8-4.8); Lymphocytes % 17.9 %; Mean Corpuscular HGB Conc 32.3 g/dL (30.0-36.0); Mean Corpuscular Hemoglobin 28.9 pg (28.0-34.0); Mean Corpuscular Volume 89.4 fL (80-94); Mean Platelet Volume 10.9 fL (7.4-10.4); Monocytes # 0.9 10^3/uL (0.2-0.9); Monocytes % 9.7 %; Neutrophils # 6.6 10^3/uL (1.8-7.7); Neutrophils % 70.1 %; Nucleated Red Blood Cells % 0 %; Platelet Count 251 10^3/cmm (130-400); Red Blood Count 4.36 10^6/uL (4.1-5.3); White Blood Count 9.5 10^3/uL (4.0-10.0)
[2019-06-24 06:30] LABS: Alanine Aminotransferase 10 U/L (0-41); Albumin Level 2.8 g/dL (3.5-5.2); Alkaline Phosphatase 79 IU/L (40-130); Anion Gap 14.3 (5-19); Aspartate Amino Transferase 13 U/L (0-40); Blood Urea Nitrogen 18 mg/dL (8-23); Calcium 9.6 mg/dL (8.5-10.5); Carbon Dioxide 29 mmol/L (22-29); Chloride 95 mmol/L (98-107); Globulin 4.8 g/dL (1.3-4.6); Glomerular Filtration Rate 37.7 mL/min (90-130); Glucose 159 mg/dL (65-115); Potassium 4.3 mmol/L (3.5-5.1); Sodium 134 mmol/L (136-145); Total Bilirubin 0.4 mg/dL (0.15-1.2); Total Protein 7.6 g/dL (6.6-8.7)
[2019-06-24 06:39] LABS: Glucose Point of Care 211 mg/dL (70-110)
[2019-06-24] MEDS: heparin 5,000 unit/mL INJ 1 mL 5000 UNIT SUBCUT ×2 (08:16→20:01)
[2019-06-24] MEDS: piperacillin-tazobactam 3.375 GM in sodium chloride 0.9% (plus) 50 ML IV ×2 (08:20→20:02)
[2019-06-24 11:01] LABS: Glucose Point of Care 438 mg/dL (70-110)
[2019-06-24] MEDS: ciprofloxacin 400 MG/200 ML PREMIX 200 MG IV ×2 (11:06→22:24)
[2019-06-24 11:11] LABS: Glucose Point of Care 428 mg/dL (70-110)
[2019-06-24] MEDS: hydroCHLOROthiazide 25 mg Tablet PO (11:12)
[2019-06-24] MEDS: fluoxetine 20 mg Capsule PO (11:12)
[2019-06-24] MEDS: dicyclomine 10 mg Capsule PO ×2 (11:13→20:01)
[2019-06-24] MEDS: metoprolol tartrate 25 mg Tablet PO ×2 (11:13→20:19)
[2019-06-24] MEDS: nicotine 21 mg Patch 1 PATCH TRANSDERMA (11:17)
--- NOTE | 2019-06-24 12:55 | PC.NURSE ---
CALLED DR BOBO TO NOTIFY OF PT BLOOD GLUCOSE RESULTS OF 428. HE ORDERED 16UNITS NOVOLOG TO BE GIVEN IN PLACE OF 14 FOR SLIDING SCALE.
[2019-06-24] MEDS: vancomycin 1,000 MG in sodium chloride 0.9% 250 ML 250 MG IV (13:02)
--- NOTE | 2019-06-24 14:16 | PM.CONSULT ---
Providers/Reason For Consult Consulting Physican/Specialty*: Danny Hall Reason for Consult*: Necrotic right great toe Attending Physician: Danny Hall History of Present Illness History of Present Illness Cecilio Díaz is a 68 year old male with multiple comorbidities, smoker who had recently been on oral antibiotics for right foot infection. Patient noticed that over the last 5 to 7 days the right great toe is becoming red and swollen and has now started to drain. The wound was debrided at the bedside by Dr. Mac though it was felt that further debridement possible amputation is needed Review of Systems Const: Denies: fever, chills, change in weight or fatigue Eyes: Denies: change in vision ENMT: Denies: painful swallowing Card: Denies: chest pain Resp: Denies: shortness of breath GI: Denies: abdominal pain Mega/Lymph: Denies: easy bruising Meds/Allergies Home Medications and Allergies Home Medications Medication Instructions Recorded Confirmed Type albuterol sulfate [Ventolin HFA] 1 puff INHALATION QID PRN 05/23/19 06/23/19 History budesonide-formoterol [Symbicort] 2 puff INHALATION BID 05/23/19 06/23/19 History canagliflozin [Invokana] 300 mg PO DAILY 05/23/19 06/23/19 History dicyclomine 10 mg PO TID 05/23/19 06/23/19 History ergocalciferol (vitamin D2) See Rx Instructions .ROUTE .COMPLEX 05/23/19 06/23/19 History [Vitamin D2] fluoxetine 20 mg PO DAILY 05/23/19 06/23/19 History glimepiride 4 mg PO BID 05/23/19 06/23/19 History levalbuterol tartrate [Xopenex HFA] 2 puff INHALATION QID 05/23/19 06/23/19 History Allergies Allergy/AdvReac Type Severity Reaction Status Date / Time No Known Allergies Allergy Verified 05/25/19 10:53 Current Medications Current Medications Generic Name Dose Route Start Last Admin Trade Name Freq PRN Reason Stop Dose Admin Dicyclomine HCl 10 mg 06/23/19 21:00 06/24/19 11:13 Bentyl PO 10 mg TID ESTHER Administration Fluoxetine HCl 20 mg 06/24/19 09:00 06/24/19 11:12 Prozac PO 20 mg DAILY ESTHER Administration Heparin Sodium (Beef Lung) 5,000 unit 06/23/19 19:55 06/24/19 08:16 Heparin SUBCUT 5,000 unit Q8H ESTHER Administration Hydrochlorothiazide 25 mg 06/24/19 09:00 06/24/19 11:12 Hctz PO 25 mg DAILY ESTHER Administration Piperacillin Sod/Tazobactam 50 mls @ 12.5 mls/hr 06/23/19 19:55 06/24/19 08:20 Sod 3.375 gm/ Sodium Chloride IV 12.5 mls/hr Q8H ESTHER Administration Protocol Ciprofloxacin/Dextrose 400 mg in 200 mls @ 200 mls/hr 06/23/19 19:55 06/24/19 11:06 Cipro IV 200 mls/hr Q12H ESTHER Administration Protocol Vancomycin HCl 1,000 mg/ 250 mls @ 250 mls/hr 06/23/19 21:00 06/24/19 13:02 Sodium Chloride IV 250 mls/hr Q24H ESTHER Administration Protocol As Directed Insulin Aspart 0 unit 06/23/19 21:00 06/24/19 13:01 Novolog SUBCUT 16 unit WM&BEDTIME ESTHER Administration Protocol Metoprolol Tartrate 25 mg 06/24/19 09:00 06/24/19 11:13 Lopressor PO 25 mg BID ESTHER Administration Nicotine 1 patch 06/23/19 19:55 06/24/19 11:17 Nicoderm 21 Mg Patch TRANSDERMA 1 patch DAILY ESTHER Administration Non-Formulary Medication 2 puff 06/23/19 21:00 06/24/19 12:59 Levalbuterol Tartrate [Xopenex Hfa] INHALATION Not Given QID ESTHER Fluticasone/Salmeterol 1 puff 06/24/19 09:00 06/24/19 08:32 Advair Diskus 500-50 INHALATION 1 puff BID ESTHER Administration PFSH Acute PFSH: Medical History COPD (chronic obstructive pulmonary disease) Diabetes HTN (hypertension) Smoking addiction Surgical History No history of previous surgery Family History Other Healthy adult Social History Smoking and tobacco status: current every day smoker cigarettes Packs smoked per day: 1 Alcohol intake: never Substance/Drug Use: never Lives independently: Yes Household members: none Marital status: Single Current occupational status: retired Vitals/I&O/Wt Last Vital Signs Temp 97.6 F 06/24/19 12:00 Pulse 59 L 06/24/19 12:00 Resp 18 06/24/19 12:00 BP 143/80 06/24/19 12:00 Pulse Ox 94 06/24/19 12:00 06/23/19 06/24/19 06/24/19 22:59 06:59 14:59 Intake Total 200 / 250 50 / 250 1180 / 1180 Output Total 200 / 500 300 / 500 Balance 0 / -250 -250 / -250 1180 / 1180 Weight last 48 hrs Weight 280 lb Physical Exam Narrative: EXAM NARRATIVE: HEENT: Normocephalic Eye: Sclera /conjunctiva normal Respiratory and chest: Bilateral clear breath sounds on auscultation Cardiovascular: Normal S1 and S2 heart sounds Abdomen: Soft to palpation Neurological: Oriented to place person and time Skin: Intact, right great toe: Swollen, ulcerated, necrotic tissue present, minimally tender Data Micro: Micro: Microbiology 06/23/19 20:30 Gram Stain - Final Toe - #1 06/23/19 16:43 Blood Culture - Pr eliminary Blood SPECIMEN [facility] 06/23/19 16:43 Blood Culture - Pr eliminary Blood SPECIMEN [facility] A&P Assessment and plan (1) Non-pressure chronic ulcer of other part of right foot with necrosis of bone: Continue IV antibiotics N.p.o. after midnight Plan for debridement possible amputation of right great toe tomorrow Procedure, risks, benefits and alternatives have been discussed with the patient who wishes to proceed with surgery. Status: Acute Code(s): L97.514 - Non-pressure chronic ulcer of other part of right foot with necrosis of bone Coding Level of Care Code Acute Water Resource Engineering Specialist for [facility] Diagnoses Non-pressure chronic ulcer of other part of right foot with necrosis of bone L97.514
[2019-06-24] MEDS: pneumococcal (23 valent) SDV 0.5 mL IM (14:29)
--- NOTE | 2019-06-24 14:59 | PM.PN ---
Subjective Subjective: Interval history: Denies any changes today. With chronic neuropathy he does not feel much pain in his right foot. Vitals/I&O/Wt Last Vital Signs Temp 97.6 F 06/24/19 12:00 Pulse 59 L 06/24/19 12:00 Resp 18 06/24/19 12:00 BP 143/80 06/24/19 12:00 Pulse Ox 94 06/24/19 12:00 06/23/19 06/24/19 06/24/19 22:59 06:59 14:59 Intake Total 200 / 200 50 / 250 1180 / 1180 Output Total 200 / 200 300 / 500 250 / 250 Balance 0 / 0 -250 / -250 930 / 930 Weight last 48 hrs Weight 127.006 kg Physical Exam Const: COMMON NORMALS: no apparent distress and oriented x3 OTHER: He is slightly hard of hearing, but pleasant and cooperative. He is disheveled with poor hygiene. HENMT: COMMON NORMALS: oropharynx normal TEETH & GINGIVA: Yes poor dentition Neck/C-Spine: COMMON NORMALS: no JVD Resp: COMMON NORMALS: normal respiratory effort and clear to auscultation bilaterally AUSCULTATION: clear to auscultation bilaterally and no wheezes Cardio: COMMON NORMALS: no JVD, regular rhythm, S1 normal heart sound, S2 normal heart sound and no murmurs RHYTHM: regular rhythm HEART SOUNDS: S1 normal and S2 normal GI: COMMON NORMALS: normal to inspection, nondistended, normoactive bowel sounds, soft to palpation and non-tender PALPATION: Yes soft Extremity: COMMON NORMALS: no joint enlargement and no pedal edema Neuro: COMMON NORMALS: oriented x3 and moves all extremities Skin: WOUNDS: Yes wounds noted (First right toe after bedside debridement, wrapped in dressing.) WOUNDS: Yes wounds noted (First right toe after bedside debridement, wrapped in dressing.) Data : 06/24/19 05:30 06/24/19 05:30 Micro: Microbiology 06/23/19 20:30 Gram Stain - Final Toe - #1 06/23/19 16:43 Blood Culture - Preliminary Blood SPECIMEN COLLECTED 06/23/19 16:43 Blood Culture - Preliminary Blood SPECIMEN COLLECTED A&P Assessment and plan (1) Diabetic foot infection: Underwent bedside debridement by podiatry, unfortunately podiatry unable to provide the necessary care beyond this. Requested assessment by wound care physician. Diabetic foot wound with underlying osteomyelitis. On presentation swollen, erythematous first right toe, with cracking of skin, multiple toes, thick cornified skin around the nail, currently no drainage, however, foul smell. He was soaking his feet at home, thus I would be concerned about possible pseudomonal involvement. Continue vancomycin and antipseudomonal antibiotics. Follow-up culture. Appreciate surgery assessment. Fitted for surgical shoe. Dressing changes with Santyl. Status: Acute Code(s): E11.628 - Type 2 diabetes mellitus with other skin complications; L08.9 - Local infection of the skin and subcutaneous tissue, unspecified (2) Smoking addiction: Discussed smoking cessation for 4 minutes with him yesterday. Encouraged him highly to quit given diabetes, hypertension, other underlying risk factors for cardiovascular disease, and with known peripheral vascular disease on recent arterial Doppler study. He verbalized understanding. He is agreeable with nicotine patch, gum for cravings while in the hospital. Status: Acute Code(s): F17.200 - Nicotine dependence, unspecified, uncomplicated (3) Diabetes: A1c back in October was 9.6. He takes oral medication at home, and states that he is adherent with therapy. Consistent carbohydrate diet. Increase insulin sliding scale to medium dose. Status: Acute Code(s): E11.9 - Type 2 diabetes mellitus without complications (4) HTN (hypertension): Monitor blood pressures. Continue metoprolol, HCTZ Status: Acute Code(s): I10 - Essential (primary) hypertension (5) COPD (chronic obstructive pulmonary disease): Very mild wheeze on examination. Continue home inhalers. Continue to smoking cessation per Status: Acute Code(s): J44.9 - Chronic obstructive pulmonary disease, unspecified Attestations Medical Necessity Statement*: Continue admission for management of the severe, recurrent diabetic foot infection, osteomyelitis. Coding Level of Care Code Acute Breaker Operator for [facility] Diagnoses Diabetic foot infection E11.628; L08.9 Smoking addiction F17.200 Diabetes E11.9 HTN (hypertension) I10 COPD (chronic obstructive pulmonary disease) J44.9
[2019-06-24 16:52] LABS: Glucose Point of Care 83 mg/dL (70-110)
[2019-06-24 21:30] LABS: Glucose Point of Care 225 mg/dL (70-110)
[2019-06-25] VITALS (15 sets, daily range): BP systolic 108–148; BP diastolic 56–85; PULSE 60–87; RESP 17–20; TEMP 36.1–37.2; O2SAT 91–98
[2019-06-25 05:01] LABS: Basophils % 0.2 %; Eosinophils # 0.1 10^3/uL (0.0-0.8); Eosinophils % 1.5 %; Hematocrit 39.2 % (42.0-52.0); Hemoglobin 12.5 g/dL (11.7-16.6); Lymphocytes # 1.9 10^3/uL (0.8-4.8); Lymphocytes % 22.5 %; Mean Corpuscular HGB Conc 31.9 g/dL (30.0-36.0); Mean Corpuscular Hemoglobin 28.2 pg (28.0-34.0); Mean Corpuscular Volume 88.3 fL (80-94); Mean Platelet Volume 10.7 fL (7.4-10.4); Monocytes # 0.8 10^3/uL (0.2-0.9); Monocytes % 9.3 %; Neutrophils # 5.6 10^3/uL (1.8-7.7); Neutrophils % 66.3 %; Nucleated Red Blood Cells % 0 %; Platelet Count 253 10^3/cmm (130-400); Red Blood Count 4.44 10^6/uL (4.1-5.3); White Blood Count 8.5 10^3/uL (4.0-10.0)
[2019-06-25 05:19] LABS: Alanine Aminotransferase 9 U/L (0-41); Albumin Level 2.8 g/dL (3.5-5.2); Alkaline Phosphatase 76 IU/L (40-130); Anion Gap 18.1 (5-19); Aspartate Amino Transferase 13 U/L (0-40); Blood Urea Nitrogen 29 mg/dL (8-23); Calcium 9.8 mg/dL (8.5-10.5); Carbon Dioxide 26 mmol/L (22-29); Chloride 94 mmol/L (98-107); Globulin 4.5 g/dL (1.3-4.6); Glomerular Filtration Rate 35.4 mL/min (90-130); Glucose 187 mg/dL (65-115); Potassium 4.1 mmol/L (3.5-5.1); Sodium 134 mmol/L (136-145); Total Bilirubin 0.4 mg/dL (0.15-1.2); Total Protein 7.3 g/dL (6.6-8.7)
[2019-06-25 06:33] LABS: Glucose Point of Care 316 mg/dL (70-110)
[2019-06-25] MEDS: piperacillin-tazobactam 3.375 GM in sodium chloride 0.9% (plus) 50 ML IV ×2 (08:48→18:29)
[2019-06-25] MEDS: heparin 5,000 unit/mL INJ 1 mL 5000 UNIT SUBCUT ×2 (08:49→18:35)
--- NOTE | 2019-06-25 08:51 | P.PN_ITS ---
Subjective Subjective: Interval history: No issues overnight, patient has been afebrile Vitals/I&O/Wt Last Vital Signs Temp 97.9 F 06/25/19 07:45 Pulse 82 06/25/19 08:45 Resp 18 06/25/19 08:45 BP 126/81 06/25/19 07:45 Pulse Ox 92 06/25/19 08:45 06/24/19 06/25/19 06/25/19 22:59 06:59 14:59 Intake Total 590 / 2270 250 / 2270 Output Total 150 / 400 Balance 590 / 1870 100 / 1870 Weight last 48 hrs Weight 280 lb Physical Exam Narrative: EXAM NARRATIVE: Right foot: Dressing dry and intact Data : 06/25/19 04:40 06/25/19 04:40 Micro: Microbiology 06/23/19 16:43 Blood Culture - Preliminary Blood NEGATIVE TO DATE 06/23/19 16:43 Blood Culture - Preliminary Blood NEGATIVE TO DATE A&P Assessment and plan (1) Non-pressure chronic ulcer of other part of right foot with necrosis of bone: Continue IV antibiotics N.p.o. after midnight Plan for debridement possible amputation of right great toe today Procedure, risks, benefits and alternatives have been discussed with the patient who wishes to proceed with surgery. Status: Acute Code(s): L97.514 - Non-pressure chronic ulcer of other part of right foot with necrosis of bone Attestations Medical Necessity Statement*: Right great toe debridement/Amputation Coding Level of Care Code Acute Waste Transportation Technician for [facility] Fwd Diagnoses Non-pressure chronic ulcer of other part of right foot with necrosis of bone L97.514
--- NOTE | 2019-06-25 10:06 | P.ANESASSM_ITS ---
Pre-Anesthetic Assessment Pre-Anesthetic Assessment: Height/Weight: Height 1.6 m Weight 127.006 kg Temp Pulse Resp BP Pulse Ox 97.9 F 82 18 126/81 92 06/25/19 07:45 06/25/19 08:45 06/25/19 08:45 06/25/19 07:45 06/25/19 08:45 Preop Diagnosis: Necrotic right great toe Proposed Procedure: Operation Date: 06/25/19 10:10 Proposed Procedures p debridement, possible amputation of right great toe(Right) - Kimo Pretty MD Familial anesthetic complications: no trouble Was Beta Tim taken within 24 hours: Yes Last intake: NPO > 8 hrs Social: Social History: Tobacco and No alcohol Packs per day: 0.5 ppd Exam: Pre-Anes Outpt Exam: alert, oriented x 3, clear to auscultation bilaterally and regular rate & rhythm Airway: Cervical ROM: WNL and Other (cr) MP: 2 Additional comments: edentulous Pulmonary: Pulmonary: COPD (2 L NC at night) CV/HEM: CV/HEM: HTN : : None reported Hepatic: Hepatic: None reported GI: GI: None reported Metabolic: Metabolic: DM and Morbid obesity Musc/skel: Musc/skel: None reported Neuropsych: Neuropsych: Neuropathy Anesthetic Plan: ASA status: 4 Anesthesia: General Risk of > 500 ml blood loss (7ml/kg in children): No Meds/Allergies Current Medications: Current Medications Generic Name Dose Route Start Last Admin Trade Name Freq PRN Reason Stop Dose Admin Dicyclomine HCl 10 mg 06/23/19 21:00 06/24/19 21:57 Bentyl PO Not Given TID ESTHER Fluoxetine HCl 20 mg 06/24/19 09:00 06/24/19 11:12 Prozac PO 20 mg DAILY ESTHER Administration Heparin Sodium (Be ef Lung) 5,000 unit 06/23/19 19:55 06/25/19 08:49 Heparin SUBCUT 5,000 unit Q8H ESTHER Administration Hydrochlorothiazid e 25 mg 06/24/19 09:00 06/24/19 11:12 Hctz PO 25 mg DAILY ESTHER Administration Piperacillin Sod/T azobactam 50 mls @ 12.5 mls /hr 06/23/19 19:55 06/25/19 08:48 Sod 3.375 gm/ So dium Chloride IV 12.5 mls/hr Q8H ESTHER Administration Protocol Ciprofloxacin/Dext apple 400 mg in 200 mls @ 200 mls/hr 06/23/19 19:55 06/24/19 23:30 Cipro IV Infused Q12H ESTHER Infusion Protocol Vancomycin HCl 1,0 00 mg/ 250 mls @ 250 mls /hr 06/23/19 21:00 06/24/19 13:02 Sodium Chloride IV 250 mls/hr Q24H ESTHER Administration Protocol As Directed Insulin Aspart 0 unit 06/24/19 18:00 06/24/19 21:56 Novolog SUBCUT Not Given WM&BEDTIME ESTHER Protocol Metoprolol Tartrat e 25 mg 06/24/19 09:00 06/24/19 20:19 Lopressor PO 25 mg BID ESTHER Administration Nicotine 1 patch 06/23/19 19:55 06/24/19 11:17 Nicoderm 21 Mg P atch TRANSDERMA 1 patch DAILY ESTHER Administration Non-Formulary Medi cation 2 puff 06/23/19 21:00 06/24/19 20:00 Levalbuterol Tar trate [Xopenex Hfa ] INHALATION Not Given QID ESTHER Fluticasone/Salmet denise 1 puff 06/24/19 09:00 06/25/19 08:41 Advair Diskus 50 0-50 INHALATION 1 puff BID ESTHER Administration PFSH Anesthesia PFSH: Medical History COPD (chronic obstructive pulmonary disease) Diabetes HTN (hypertension) Smoking addiction Surgical History No history of previous surgery Family History Other Healthy adult Social History Smoking and tobacco status: current every day smoker cigarettes Packs smoked per day: 1 Alcohol intake: never Substance/Drug Use: never Lives independently: Yes Household members: none Marital status: Single Current occupational status: retired Data Anesthesia CBC & Chem 7: 06/25/19 04:40 06/25/19 04:40 Other Labs: Laboratory Results - last 48 hr 06/23/19 06/23/19 06/23/19 16:43 17:15 20:39 WBC 12.0 H RBC 4.94 Hgb 14.2 Hct 44.5 MCV 90.1 MCH 28.7 MCHC 31.9 RDW 13.1 Plt Count 308 MPV 11.3 H Neut % (Auto) 75.4 Lymph % (Auto) 15.1 [place] % (Auto) 7.4 Eos % (Auto) 1.4 Baso % (Auto) 0.4 Neut # (Auto) 9.0 H Lymph # (Auto) 1.8 [place] # (Auto) 0.9 Eos # (Auto) 0.2 Baso # (Auto) 0.1 Nucleated RBC % (auto) 0 Nucleated RBCs # 0.0 Sodium 133 L Potassium 5.1 Chloride 94 L Carbon Dioxide 27 Anion Gap 17.1 BUN 24 H Creatinine 2.0 H GFR Calculation 33.4 L Glucose 244 H POC Glucose 190 Calculated Osmolality 281 L Calcium 10.0 Total Bilirubin AST ALT Alkaline Phosphatase Total Protein Albumin Globulin 06/24/19 06/24/19 06/24/19 05:30 05:30 06:37 WBC 9.5 RBC 4.36 Hgb 12.6 Hct 39.0 L MCV 89.4 MCH 28.9 MCHC 32.3 RDW 13.0 Plt Count 251 MPV 10.9 H Neut % (Auto) 70.1 Lymph % (Auto) 17.9 [place] % (Auto) 9.7 Eos % (Auto) 1.8 Baso % (Auto) 0.2 Neut # (Auto) 6.6 Lymph # (Auto) 1.7 [place] # (Auto) 0.9 Eos # (Auto) 0.2 Baso # (Auto) 0.0 Nucleated RBC % (auto) 0 Nucleated RBCs # 0.0 Sodium 134 L Potassium 4.3 Chloride 95 L Carbon Dioxide 29 Anion Gap 14.3 BUN 18 Creatinine 1.8 H GFR Calculation 37.7 L Glucose 159 H POC Glucose 211 Calculated Osmolality Calcium 9.6 Total Bilirubin 0.4 AST 13 ALT 10 Alkaline Phosphatase 79 Total Protein 7.6 Albumin 2.8 L Globulin 4.8 H 06/24/19 06/24/19 06/24/19 10:57 11:09 16:43 WBC RBC Hgb Hct MCV MCH MCHC RDW Plt Count MPV Neut % (Auto) Lymph % (Auto) [place] % (Auto) Eos % (Auto) Baso % (Auto) Neut # (Auto) Lymph # (Auto) [place] # (Auto) Eos # (Auto) Baso # (Auto) Nucleated RBC % (auto) Nucleated RBCs # Sodium Potassium Chloride Carbon Dioxide Anion Gap BUN Creatinine GFR Calculation Glucose POC Glucose 438 428 83 Calculated Osmolality Calcium Total Bilirubin AST ALT Alkaline Phosphatase Total Protein Albumin Globulin 06/24/19 06/25/19 06/25/19 21:24 04:40 04:40 WBC 8.5 RBC 4.44 Hgb 12.5 Hct 39.2 L MCV 88.3 MCH 28.2 MCHC 31.9 RDW 13.0 Plt Count 253 MPV 10.7 H Neut % (Auto) 66.3 Lymph % (Auto) 22.5 [place] % (Auto) 9.3 Eos % (Auto) 1.5 Baso % (Auto) 0.2 Neut # (Auto) 5.6 Lymph # (Auto) 1.9 [place] # (Auto) 0.8 Eos # (Auto) 0.1 Baso # (Auto) 0.0 Nucleated RBC % (auto) 0 Nucleated RBCs # 0.0 Sodium 134 L Potassium 4.1 Chloride 94 L Carbon Dioxide 26 Anion Gap 18.1 BUN 29 H Creatinine 1.9 H GFR Calculation 35.4 L Glucose 187 H POC Glucose 225 Calculated Osmolality Calcium 9.8 Total Bilirubin 0.4 AST 13 ALT 9 Alkaline Phosphatase 76 Total Protein 7.3 Albumin 2.8 L Globulin 4.5 06/25/19 06:26 WBC RBC Hgb Hct MCV MCH MCHC RDW Plt Count MPV Neut % (Auto) Lymph % (Auto) [place] % (Auto) Eos % (Auto) Baso % (Auto) Neut # (Auto) Lymph # (Auto) [place] # (Auto) Eos # (Auto) Baso # (Auto) Nucleated RBC % (auto) Nucleated RBCs # Sodium Potassium Chloride Carbon Dioxide Anion Gap BUN Creatinine GFR Calculation Glucose POC Glucose 316 Calculated Osmolality Calcium Total Bilirubin AST ALT Alkaline Phosphatase Total Protein Albumin Globulin Micro: Microbiology 06/23/19 16:43 Blood Culture - Preliminary Blood NEGATIVE TO DATE 06/23/19 16:43 Blood Culture - Preliminary Blood NEGATIVE TO DATE Cardiac Studies: No Data to Display
[2019-06-25] MEDS: metoprolol tartrate 25 mg Tablet PO ×2 (10:13→12:34)
[2019-06-25] MEDS: sodium chloride 0.9% 1,000 ML 30 ML IV (10:46)
[2019-06-25] MEDS: lidocaine 1% INJ 20 mL IM (11:20)
[2019-06-25] MEDS: neomycin-poly-bacitracin oint 28 gm 1 APPLIC TOPICAL (11:35)
--- NOTE | 2019-06-25 11:37 | PM.OP ---
Operative Report Date of procedure: June 25, 2019 Pre-op Diagnosis: Necrotic right great toe Post-op diagnosis: same Procedure Done: Amputation of right great toe Pathology: Right great toe and wound cultures Surgeon: Kimo Pretty Anesthesia: General Estimated blood loss (mL): 25 Condition: stable Disposition: PACU Procedure: The patient was taken to the operating room and intubated under general anesthesia. Patient was already on IV antibiotics. The right foot was prepped and draped in a sterile manner. Attempt at debriding the necrotic tissue revealed exposed proximal and distal phalanx of right great toe with no significant soft tissue coverage. I therefore decided to proceed with amputation. A fishmouth incision was made proximally over the metatarsophalangeal joint where there was healthy tissue noted and using a combination of electrocautery and 15 blade the ligamentous attachments of the metatarsophalangeal joints were divided. Rongeur was used to remove the periosteum of the first metatarsal head, and subcutaneous tissue was loosely approximated using interrupted 3-0 Vicryl suture and skin was loosely approximated using 2-0 vertical mattress Prolene suture. Incision was covered with antibiotic cream, Surgicel, 4 x 4, Kerlix and Horace wrap. The patient was extubated and transferred to recovery room in stable condition.
[2019-06-25 12:02] LABS: Glucose Point of Care 148 mg/dL (70-110)
[2019-06-25] MEDS: fluoxetine 20 mg Capsule PO (12:36)
[2019-06-25] MEDS: nicotine 21 mg Patch 1 PATCH TRANSDERMA (12:36)
[2019-06-25] MEDS: hydroCHLOROthiazide 25 mg Tablet PO (12:36)
[2019-06-25] MEDS: ciprofloxacin 400 MG/200 ML PREMIX 200 MG IV ×2 (12:37→23:18)
[2019-06-25] MEDS: dicyclomine 10 mg Capsule PO ×2 (12:44→18:37)
[2019-06-25] MEDS: vancomycin 1,000 MG in sodium chloride 0.9% 250 ML 250 MG IV (15:59)
[2019-06-25 18:42] LABS: Glucose Point of Care 301 mg/dL (70-110)
[2019-06-25] MEDS: HYDROcodone-acetaminophen 5-325 mg Tablet 1 TAB PO (18:53)
--- NOTE | 2019-06-25 19:07 | PM.PN ---
Subjective Subjective: Interval history: He is awake, alert postoperatively, although perhaps some residual effect from anesthesia, as he has been trying to get out of bed and fell down, subsequently again try to get her bed despite confirming himself that he needs to be more careful and that he has been counseled by nursing staff to request for assistance if he needed to go somewhere. He denies any complaints. Vitals/I&O/Wt Last Vital Signs Temp 97.6 F 06/25/19 16:00 Pulse 66 06/25/19 16:00 Resp 18 06/25/19 16:00 BP 116/71 06/25/19 16:00 Pulse Ox 91 06/25/19 16:00 06/25/19 06/25/19 06/25/19 06:59 14:59 22:59 Intake Total 250 / 2520 50 / 50 Output Total 150 / 400 220 / 220 Balance 100 / 2120 -170 / -170 Physical Exam Const: COMMON NORMALS: no apparent distress and oriented x3 HENMT: COMMON NORMALS: oropharynx normal TEETH & GINGIVA: Yes poor dentition Neck/C-Spine: COMMON NORMALS: no JVD Resp: COMMON NORMALS: normal respiratory effort and clear to auscultation bilaterally AUSCULTATION: clear to auscultation bilaterally and no wheezes Cardio: COMMON NORMALS: no JVD, regular rhythm, S1 normal heart sound, S2 normal heart sound and no murmurs RHYTHM: regular rhythm HEART SOUNDS: S1 normal and S2 normal GI: COMMON NORMALS: normal to inspection, nondistended, normoactive bowel sounds, soft to palpation and non-tender PALPATION: Yes soft Extremity: OTHER: Status post potation right hallux. Dressing in place. Neuro: COMMON NORMALS: oriented x3 and moves all extremities Skin: COMMON NORMALS: no rashes or lesions noted GENERAL SKIN EXAM: no rashes or lesions noted RASHES: rashes noted (Cracked, edematous first right toe, with open ulcerations) WOUNDS: Yes wounds noted (First right toe after bedside debridement, wrapped in dressing.) WOUNDS: Yes wounds noted (First right toe after bedside debridement, wrapped in dressing.) Data : 06/25/19 04:40 06/25/19 04:40 Micro: Microbiology 06/25/19 11:29 Gram Stain - Final Foot - #1 06/23/19 20:30 Gram Stain - Final Toe - #1 Wound Culture - Preliminary 06/23/19 16:43 Blood Culture - Preliminary Blood NEGATIVE TO DATE 06/23/19 16:43 Blood Culture - Preliminary Blood NEGATIVE TO DATE A&P Assessment and plan (1) Diabetic foot infection: Status post amputation right hallux. One-to-one sitter ordered due to repeatedly getting out of bed, and a fall earlier. Diabetic foot wound with underlying osteomyelitis. Follow-up culture results. Continue vancomycin and antipseudomonal antibiotics. Status: Acute Code(s): E11.628 - Type 2 diabetes mellitus with other skin complications; L08.9 - Local infection of the skin and subcutaneous tissue, unspecified (2) Smoking addiction: Discussed smoking cessation for 4 minutes with him yesterday. Encouraged him highly to quit given diabetes, hypertension, other underlying risk factors for cardiovascular disease, and with known peripheral vascular disease on recent arterial Doppler study. He verbalized understanding. He is agreeable with nicotine patch, gum for cravings while in the hospital. Status: Acute Code(s): F17.200 - Nicotine dependence, unspecified, uncomplicated (3) Diabetes: A1c back in October was 9.6. He takes oral medication at home, and states that he is adherent with therapy. Consistent carbohydrate diet. Increase insulin sliding scale to medium dose. Status: Acute Code(s): E11.9 - Type 2 diabetes mellitus without complications (4) HTN (hypertension): Monitor. Blood pressures at goal. Continue metoprolol, HCTZ Status: Acute Code(s): I10 - Essential (primary) hypertension (5) COPD (chronic obstructive pulmonary disease): Wheeze resolved. Continue home inhalers. Continue to smoking cessation per Status: Acute Code(s): J44.9 - Chronic obstructive pulmonary disease, unspecified Attestations Medical Necessity Statement*: Continue admission recurrent cellulitis, diabetic foot wound, osteomyelitis right first toe. Coding Level of Care Code Acute Tile And Marble Setter for Nirmala Patel Diagnoses Diabetic foot infection E11.628; L08.9 Smoking addiction F17.200 Diabetes E11.9 HTN (hypertension) I10 COPD (chronic obstructive pulmonary disease) J44.9
[2019-06-25 20:41] LABS: Glucose Point of Care 392 mg/dL (70-110)
[2019-06-26] VITALS (9 sets, daily range): BP systolic 102–127; BP diastolic 58–68; PULSE 59–82; RESP 16–24; TEMP 36.4–37; O2SAT 90–96
[2019-06-26] MEDS: dicyclomine 10 mg Capsule PO ×4 (00:52→21:22)
[2019-06-26] MEDS: heparin 5,000 unit/mL INJ 1 mL 5000 UNIT SUBCUT ×3 (00:52→17:55)
[2019-06-26] MEDS: piperacillin-tazobactam 3.375 GM in sodium chloride 0.9% (plus) 50 ML IV ×3 (00:54→17:54)
[2019-06-26] MEDS: HYDROcodone-acetaminophen 5-325 mg Tablet 1 TAB PO (05:30)
[2019-06-26 05:51] LABS: Basophils % 0.2 %; Eosinophils # 0.2 10^3/uL (0.0-0.8); Eosinophils % 1.6 %; Hematocrit 39.6 % (42.0-52.0); Hemoglobin 12.5 g/dL (11.7-16.6); Lymphocytes # 1.7 10^3/uL (0.8-4.8); Lymphocytes % 17.9 %; Mean Corpuscular HGB Conc 31.6 g/dL (30.0-36.0); Mean Corpuscular Hemoglobin 29.6 pg (28.0-34.0); Mean Corpuscular Volume 93.6 fL (80-94); Mean Platelet Volume 10.8 fL (7.4-10.4); Neutrophils # 6.4 10^3/uL (1.8-7.7); Nucleated Red Blood Cells % 0 %; Platelet Count 230 10^3/cmm (130-400); Red Blood Count 4.23 10^6/uL (4.1-5.3); Red Cell Distribution Width 13.2 % (12.1-15.1); White Blood Count 9.3 10^3/uL (4.0-10.0)
[2019-06-26 06:03] LABS: Alanine Aminotransferase 13 U/L (0-41); Albumin Level 2.8 g/dL (3.5-5.2); Alkaline Phosphatase 73 IU/L (40-130); Aspartate Amino Transferase 20 U/L (0-40); Blood Urea Nitrogen 37 mg/dL (8-23); Calcium 9.1 mg/dL (8.5-10.5); Carbon Dioxide 23 mmol/L (22-29); Chloride 97 mmol/L (98-107); Globulin 4.5 g/dL (1.3-4.6); Glomerular Filtration Rate 28.4 mL/min (90-130); Glucose 159 mg/dL (65-115); Sodium 134 mmol/L (136-145); Total Bilirubin 0.3 mg/dL (0.15-1.2); Total Protein 7.3 g/dL (6.6-8.7)
--- NOTE | 2019-06-26 06:15 | PC.NURSE ---
patients left forearm iv infiltrated. new iv put in right upper arm, 20 gauge, blood return and flushed well. patient tolerated procedure well.
[2019-06-26 06:49] LABS: Glucose Point of Care 170 mg/dL (70-110)
--- NOTE | 2019-06-26 08:57 | P.PN_ITS ---
Subjective Subjective: Interval history: Patient was confused last night, postop day 1 status post right great toe amputation. Denies significant pain Vitals/I&O/Wt Last Vital Signs Temp 97.6 F 06/26/19 07:53 Pulse 82 06/26/19 08:48 Resp 16 06/26/19 08:48 BP 102/66 06/26/19 07:53 Pulse Ox 96 06/26/19 08:48 06/25/19 06/26/19 06/26/19 22:59 06:59 14:59 Intake Total 50 / 360 60 / 360 480 / 480 Output Total 150 / 745 375 / 745 200 / 200 Balance -100 / -385 -315 / -385 280 / 280 Physical Exam Narrative: EXAM NARRATIVE: Right foot: Dressings dry and intact Data : 06/26/19 05:18 06/26/19 05:18 Micro: Microbiology 06/25/19 11:29 Gram Stain - Final Foot - #1 06/23/19 20:30 Gram Stain - Final Toe - #1 Wound Culture - Preliminary A&P Assessment and plan (1) Status post amputation of great toe: Once daily dressing change Patient will need to go to rehab since he lives alone as he has been unsteady on his feet and gets confused Status: Acute Code(s): Z89.419 - Acquired absence of unspecified great toe Attestations Medical Necessity Statement*: Status post right great toe amputation requiring rehab Coding Level of Care Code Acute Data Center Manager for Nirmala Patel Diagnoses Status post amputation of great toe Z89.419
[2019-06-26] MEDS: nicotine 21 mg Patch 1 PATCH TRANSDERMA ×2 (09:00→12:57)
[2019-06-26] MEDS: fluoxetine 20 mg Capsule PO ×2 (09:00→12:50)
[2019-06-26] MEDS: metoprolol tartrate 25 mg Tablet PO ×2 (09:00→12:52)
[2019-06-26] MEDS: hydroCHLOROthiazide 25 mg Tablet PO ×2 (09:00→12:51)
[2019-06-26 12:11] LABS: Glucose Point of Care 328 mg/dL (70-110)
--- NOTE | 2019-06-26 14:34 | DCPLANNER ---
Pg 2 of IM explained to and signed by pt. No questions, copy provided.
[2019-06-26] MEDS: ciprofloxacin 400 MG/200 ML PREMIX 200 MG IV (16:47)
[2019-06-26 16:53] LABS: Glucose Point of Care 308 mg/dL (70-110)
[2019-06-26] MEDS: vancomycin 1,000 MG in sodium chloride 0.9% 250 ML 250 MG IV (17:54)
--- NOTE | 2019-06-26 18:30 | PM.PN ---
Subjective Subjective: Interval history: Reported unstable on his feet. He states he has had difficulty to positioning of his foot to maintain good balance. Pain is under control. Vitals/I&O/Wt Last Vital Signs Temp 98.6 F 06/26/19 16:00 Pulse 68 06/26/19 16:00 Resp 16 06/26/19 16:00 BP 114/62 06/26/19 16:00 Pulse Ox 95 06/26/19 16:00 06/26/19 06/26/19 06/26/19 06:59 14:59 22:59 Intake Total 310 / 860 1130 / 1130 120 / 1250 Output Total 375 / 745 200 / 200 Balance -65 / 115 930 / 930 120 / 1050 Physical Exam Const: COMMON NORMALS: no apparent distress and oriented x3 OTHER: He is slightly hard of hearing, but pleasant and cooperative. HENMT: COMMON NORMALS: oropharynx normal TEETH & GINGIVA: Yes poor dentition Neck/C-Spine: COMMON NORMALS: no JVD Resp: COMMON NORMALS: normal respiratory effort and clear to auscultation bilaterally AUSCULTATION: clear to auscultation bilaterally and no wheezes Cardio: COMMON NORMALS: no JVD, regular rhythm, S1 normal heart sound, S2 normal heart sound and no murmurs RHYTHM: regular rhythm HEART SOUNDS: S1 normal and S2 normal GI: COMMON NORMALS: normal to inspection, nondistended, normoactive bowel sounds, soft to palpation and non-tender PALPATION: Yes soft Extremity: COMMON NORMALS: no joint enlargement and no pedal edema OTHER: Status post potation right hallux. Dressing in place. Neuro: COMMON NORMALS: oriented x3 and moves all extremities Skin: COMMON NORMALS: no rashes or lesions noted GENERAL SKIN EXAM: no rashes or lesions noted RASHES: rashes noted (Cracked, edematous first right toe, with open ulcerations) WOUNDS: Yes wounds noted (First right toe after bedside debridement, wrapped in dressing.) WOUNDS: Yes wounds noted (First right toe after bedside debridement, wrapped in dressing.) Data : 06/26/19 05:18 06/26/19 05:18 Micro: Microbiology 06/25/19 11:29 Gram Stain - Final Foot - #1 Tissue Culture - Preliminary 06/23/19 20:30 Gram Stain - Final Toe - #1 Wound Culture - Preliminary Staphylococcus aureus A&P Assessment and plan (1) Diabetic foot infection: Staphylococcus aureus growing from wound culture from admission. Status post amputation right hallux. Diabetic foot wound with underlying osteomyelitis. One-to-one sitter was ordered last night due to him repeatedly trying to get out of bed, and initially with a fall, and with near fall subsequently. Poor balance. Fall risk. Today he follows instruction better. On observation by one-to-one sitter has done well. Will discontinue. Continue fall precautions. Discussed with him placement to SNF for rehabilitation due to difficulties with balance after several amputation. Appreciate discharge planning assistance. For now continue antibiotics by IV. Status: Acute Code(s): E11.628 - Type 2 diabetes mellitus with other skin complications; L08.9 - Local infection of the skin and subcutaneous tissue, unspecified (2) Smoking addiction: Continue to encourage cessation. Status: Acute Code(s): F17.200 - Nicotine dependence, unspecified, uncomplicated (3) Diabetes: A1c back in October was 9.6. He takes oral medication at home, and states that he is adherent with therapy. Consistent carbohydrate diet. Increase insulin sliding scale to medium dose. Status: Acute Code(s): E11.9 - Type 2 diabetes mellitus without complications (4) HTN (hypertension): Monitor. Blood pressures at goal. Continue metoprolol, HCTZ Status: Acute Code(s): I10 - Essential (primary) hypertension (5) COPD (chronic obstructive pulmonary disease): Wheeze resolved. Continue home inhalers. Continue to smoking cessation per Status: Acute Code(s): J44.9 - Chronic obstructive pulmonary disease, unspecified Attestations Medical Necessity Statement*: Continue admission for assessment management of diabetic foot wound, disposition arrangements due to poor balance, gait instability after amputation. Coding Level of Care Code Acute Risk Management Director for Nirmala Patel Diagnoses Diabetic foot infection E11.628; L08.9 Smoking addiction F17.200 Diabetes E11.9 HTN (hypertension) I10 COPD (chronic obstructive pulmonary disease) J44.9
[2019-06-26 20:45] LABS: Glucose Point of Care 300 mg/dL (70-110)
[2019-06-27] MEDS: heparin 5,000 unit/mL INJ 1 mL 5000 UNIT SUBCUT ×3 (01:06→15:24)
[2019-06-27 03:21] VITALS: BP 123/61; PULSE 67; RESP 20; TEMP 36.6; O2SAT 91
[2019-06-27] MEDS: piperacillin-tazobactam 3.375 GM in sodium chloride 0.9% (plus) 50 ML IV ×3 (03:52→20:46)
[2019-06-27 06:18] LABS: Basophils % 0.2 %; Eosinophils # 0.2 10^3/uL (0.0-0.8); Eosinophils % 2.5 %; Hematocrit 38.4 % (42.0-52.0); Hemoglobin 11.9 g/dL (11.7-16.6); Lymphocytes # 1.7 10^3/uL (0.8-4.8); Mean Corpuscular Hemoglobin 28.1 pg (28.0-34.0); Mean Corpuscular Volume 90.6 fL (80-94); Mean Platelet Volume 10.7 fL (7.4-10.4); Monocytes # 0.8 10^3/uL (0.2-0.9); Monocytes % 9.9 %; Neutrophils # 5.7 10^3/uL (1.8-7.7); Neutrophils % 67.2 %; Nucleated Red Blood Cells % 0 %; Platelet Count 249 10^3/cmm (130-400); Red Blood Count 4.24 10^6/uL (4.1-5.3); White Blood Count 8.5 10^3/uL (4.0-10.0)
[2019-06-27 06:36] LABS: Glucose Point of Care 241 mg/dL (70-110)
[2019-06-27 06:39] LABS: Blood Urea Nitrogen 35 mg/dL (8-23); Calcium 9.5 mg/dL (8.5-10.5); Carbon Dioxide 25 mmol/L (22-29); Chloride 95 mmol/L (98-107); Glomerular Filtration Rate 31.6 mL/min (90-130); Glucose 238 mg/dL (65-115); Osmolality Calculated 281 mOsm/kg (285-295); Sodium 133 mmol/L (136-145)
[2019-06-27 07:22] VITALS: BP 146/75; PULSE 73; RESP 16; TEMP 36.4; O2SAT 96
[2019-06-27] MEDS: ciprofloxacin 400 MG/200 ML PREMIX 200 MG IV ×2 (07:46→21:40)
[2019-06-27] MEDS: nicotine 21 mg Patch 1 PATCH TRANSDERMA (09:09)
[2019-06-27] MEDS: dicyclomine 10 mg Capsule PO ×3 (09:09→21:39)
[2019-06-27] MEDS: metoprolol tartrate 25 mg Tablet PO ×2 (09:09→17:53)
[2019-06-27 11:00] VITALS: BP 94/60; PULSE 69; RESP 18; TEMP 36.4; O2SAT 95
[2019-06-27 11:40] LABS: Glucose Point of Care 359 mg/dL (70-110)
[2019-06-27 11:40] LABS: Glucose Point of Care 235 mg/dL (70-110)
[2019-06-27 12:02] LABS: Glucose Point of Care 329 mg/dL (70-110)
--- NOTE | 2019-06-27 14:35 | PM.PN ---
Subjective Subjective: Interval history: Cecilio reports he is doing okay. He believes he is better than before surgery. Medications: Reviewed: Yes Vitals/I&O/Wt Last Vital Signs Temp 97.6 F 06/27/19 11:00 Pulse 69 06/27/19 11:00 Resp 18 06/27/19 11:00 BP 94/60 06/27/19 11:00 Pulse Ox 95 06/27/19 11:00 06/26/19 06/27/19 06/27/19 22:59 06:59 14:59 Intake Total 720 / 1850 300 / 2150 610 / 610 Output Total 200 / 400 750 / 1150 750 / 750 Balance 520 / 1450 -450 / 1000 -140 / -140 Physical Exam Narrative: EXAM NARRATIVE: General exam no apparent distress Cardiovascular regular rate and rhythm without murmur Lungs diminished breath sounds bilaterally. Faint expiratory wheeze. Otherwise clear. Abdomen is soft positive bowel sounds Extremities trace bilateral edema. Dressing present right foot. Data : 06/27/19 05:58 06/27/19 05:58 Micro: Microbiology 06/23/19 20:30 Gram Stain - Final Toe - #1 Wound Culture - Final Staphylococcus aureus 06/25/19 11:29 Gram Stain - Final Foot - #1 Tissue Culture - Preliminary Coagulase negativ staphylococc A&P Assessment and plan (1) Diabetic foot infection: Ultimately grew out methicillin sensitive staph aureus, sensitive to ciprofloxacin and ampicillin/sulbactam Status post amputation right hallux. Diabetic foot wound with underlying osteomyelitis. Continue fall precautions Await skilled placement for wound care At this point continue Mian Herrera Status: Acute Code(s): E11.628 - Type 2 diabetes mellitus with other skin complications; L08.9 - Local infection of the skin and subcutaneous tissue, unspecified (2) Smoking addiction: Continue to encourage cessation. Status: Acute Code(s): F17.200 - Nicotine dependence, unspecified, uncomplicated (3) Diabetes: Continue current meds Status: Acute Code(s): E11.9 - Type 2 diabetes mellitus without complications (4) HTN (hypertension): Continue metoprolol, hydrochlorothiazide Status: Acute Code(s): I10 - Essential (primary) hypertension (5) COPD (chronic obstructive pulmonary disease): Encourage smoking cessation Status: Acute Code(s): J44.9 - Chronic obstructive pulmonary disease, unspecified Attestations Medical Necessity Statement*: Needs continued hospitalization for IV antibiotics secondary to osteomyelitis. And close follow-up following amputation. Coding Level of Care Code Acute Ocean Import Representative for g Fwd Diagnoses Diabetic foot infection E11.628; L08.9 Smoking addiction F17.200 Diabetes E11.9 HTN (hypertension) I10 COPD (chronic obstructive pulmonary disease) J44.9
[2019-06-27 15:53] VITALS: BP 131/64; PULSE 58; RESP 17; TEMP 36.6; O2SAT 95
[2019-06-27 17:22] LABS: Glucose Point of Care 220 mg/dL (70-110)
[2019-06-27] MEDS: vancomycin 1,000 MG in sodium chloride 0.9% 250 ML 250 MG IV (17:59)
--- NOTE | 2019-06-27 18:20 | P.PN_ITS ---
Subjective Subjective: Interval history: Chief complaint: Status post right great toe amputation History of present illness: Patient has been stable, afebrile and white count is normal. He still unsteady on his feet Vitals/I&O/Wt Last Vital Signs Temp 97.8 F 06/27/19 15:53 Pulse 58 L 06/27/19 15:53 Resp 17 06/27/19 15:53 BP 131/64 06/27/19 15:53 Pulse Ox 95 06/27/19 15:53 06/27/19 06/27/19 06/27/19 06:59 14:59 22:59 Intake Total 300 / 2150 660 / 1020 360 / 1020 Output Total 750 / 1150 750 / 750 Balance -450 / 1000 -90 / 270 360 / 270 Physical Exam Narrative: EXAM NARRATIVE: Right foot: Wound has good granulation tissue, dowd tures intact Data : 06/27/19 05:58 06/27/19 05:58 Micro: Microbiology 06/23/19 20:30 Gram Stain - Final Toe - #1 Wound Culture - Final Staphylococcus aureus 06/25/19 11:29 Gram Stain - Final Foot - #1 Tissue Culture - Preliminary Coagulase negativ staphylococc A&P Assessment and plan (1) Status post amputation of great toe: Doing well Awaiting placement in a prison Follow-up in wound care Continue daily dressing changes with Teena Status: Acute Code(s): Z89.419 - Acquired absence of unspecified great toe Attestations Medical Necessity Statement*: Awaiting prison placement Coding Level of Care Code Acute Medical Records Manager for Nirmala Patel Diagnoses Status post amputation of great toe Z89.419
[2019-06-27 20:00] VITALS: BP 97/57; PULSE 64; RESP 24; TEMP 36.5; O2SAT 91
--- NOTE | 2019-06-27 21:06 | PC.NURSE ---
Critical Vanc Trough: Critical value this evening but was drawn 2 hours after vancomycin dose was administered. Physician notified and no new orders. Vanc trough to be drawn before next dose.
[2019-06-27] MEDS: HYDROcodone-acetaminophen 5-325 mg Tablet 1 TAB PO (21:39)
[2019-06-28] VITALS: BP 120/61; PULSE 59; RESP 20; TEMP 36.5; O2SAT 92
[2019-06-28] MEDS: heparin 5,000 unit/mL INJ 1 mL 5000 UNIT SUBCUT ×2 (00:07→07:48)
[2019-06-28 00:57] LABS: Glucose Point of Care 289 mg/dL (70-110)
[2019-06-28] MEDS: piperacillin-tazobactam 3.375 GM in sodium chloride 0.9% (plus) 50 ML IV ×2 (02:55→10:45)
[2019-06-28 03:45] VITALS: BP 92/50; PULSE 67; RESP 24; TEMP 36.3; O2SAT 97
[2019-06-28 06:59] LABS: Glucose Point of Care 231 mg/dL (70-110)
[2019-06-28 07:38] VITALS: BP 120/66; PULSE 59; RESP 22; TEMP 36.7; O2SAT 98
[2019-06-28] MEDS: ciprofloxacin 400 MG/200 ML PREMIX 200 MG IV (07:51)
[2019-06-28 08:00] VITALS: BP 120/66; PULSE 59; RESP 22; TEMP 36.7; O2SAT 98
[2019-06-28] MEDS: fluoxetine 20 mg Capsule PO (09:02)
[2019-06-28] MEDS: hydroCHLOROthiazide 25 mg Tablet PO (09:02)
[2019-06-28] MEDS: dicyclomine 10 mg Capsule PO (09:02)
[2019-06-28] MEDS: nicotine 21 mg Patch 1 PATCH TRANSDERMA (09:14)
--- NOTE | 2019-06-28 10:04 | PC.SOCIAL ---
IMM Update Pg2 of IMM given and explained to patient who verbalized understanding. Signed, dated, and timed and placed in chart.
[2019-06-28 10:20] LABS: Glucose Point of Care 472 mg/dL (70-110)
[2019-06-28 10:41] VITALS: BP 153/77; PULSE 70; RESP 20; TEMP 36.4; O2SAT 94
--- NOTE | 2019-06-28 11:48 | PM.DCS ---
Discharge Providers Date of Admission: 06/23/19 17:51 Date of Discharge: June 28, 2019 Attending Provider at Admission: Danny Hall Attending Provider at Discharge: Hugo Burden MD Diagnoses at Discharge Discharge Diagnosis (1) Status post amputation of great toe: Status: Acute Problem details: Doing well. Will finish 7 more days of Augmentin, follow-up in surgery clinic/wound clinic Reason for Visit Reason for Visit: Reason For Visit: r foot infection Hospital Course Hospital Course: Cecilio is a 68-year-old male who presented to the hospital with a diabetic foot infection of the right foot. Zosyn, ciprofloxacin, and vancomycin was initiated. Surgery consult was obtained. Patient was taken to the operating room on June 25, where Dr. Pretty amputated his right great toe. Patient did well following the procedure. Secondary to concerns of wound healing it was thought he should be discharged to detention facility. This occurred on June 28. At that time he had grown staph aureus, staph epidermidis from his wound cultures all sensitive to Augmentin which she will be discharged on for 7 more days. Physical Exam Narrative: EXAM NARRATIVE: General exam no apparent distress Cardiovascular regular rate and rhythm without murmur Lungs clear Abdomen is soft, positive bowel sounds Extremities no cyanosis clubbing or edema, dressing present right foot Discharge Data Data Completed and Pending: Completed Studies During Hospitalization Category Date Time Status XR foot RT min 3V * [id number] Stat Exams 06/23/19 16:21 Completed Pending at discharge Category Date Time Status Blood Culture Sta t Lab 06/23/19 16:43 Results Vancomycin Trough Timed Lab 06/28/19 17:00 Ordered Pathology: Surgic al [PTH] Routine Pth 06/25/19 12:05 Received Labs from last 24 hours 06/28/19 06/28/19 06/27/19 10:05 06:23 20:31 POC Glucose 472 231 289 Vancomycin Trough 06/27/19 06/27/19 06/27/19 20:16 17:08 11:58 POC Glucose 220 329 Vancomycin Trough Cancelled Vitals: Last Vital Signs Temp 97.6 F 06/28/19 10:41 Pulse 70 06/28/19 10:41 Resp 20 H 06/28/19 10:41 BP 153/77 06/28/19 10:41 Pulse Ox 94 06/28/19 10:41 Discharge Plan Discharge Patient Disposition: Xfer SNF Condition: Stable Prescriptions: New amoxicillin-pot clavulanate [Augmentin] 875-125 mg tablet 1 tab PO BID Qty: 14 RF: 0 Continued metoprolol tartrate 25 mg tablet 25 mg PO BID 90 Days Qty: 180 RF: 3 metformin 1,000 mg tablet 1,000 mg PO BID Qty: 60 RF: 3 hydrochlorothiazide 25 mg tablet 25 mg PO DAILY Qty: 90 RF: 3 glimepiride 4 mg tablet 4 mg PO BID RF: 0 ergocalciferol (vitamin D2) [Vitamin D2] 50,000 unit Capsule See Rx Instructions .ROUTE .COMPLEX RF: 0 albuterol sulfate [Ventolin HFA] 90 mcg/actuation HFA aerosol inhaler 1 puff INHALATION QID PRN (Reason: Shortness Of Breath) RF: 0 fluoxetine 20 mg capsule 20 mg PO DAILY RF: 0 dicyclomine 10 mg capsule 10 mg PO TID RF: 0 levalbuterol tartrate [Xopenex HFA] 45 mcg/actuation HFA aerosol inhaler 2 puff INHALATION QID RF: 0 Symbicort 160-4.5 mcg/actuation HFA aerosol inhaler 2 puff INHALATION BID RF: 0 Invokana 300 mg tablet 300 mg PO DAILY RF: 0 Discontinued meloxicam 15 mg tablet 15 mg PO DAILY Qty: 90 RF: 3 Referrals: [facility] [Outside] - 4-7 days Kimo Pretty MD [Physician] - 7-10 days Discharge Diet: Diabetic Discharge Activity: Increase activity as tolerated Activity Restrictions/Additional Instructions: Wound instructions per surgery, as well as weightbearing restrictions. Take all medicine as prescribed. Discharge Attestations Time Spent in Discharge Care*: greater than 30 min Quality Metrics Clinical Quality Measures During this hospital stay, did patient experience: None Coding Level of Care Code Acute Consulting Database Administrator for Lebrong Fwd Diagnoses Status post amputation of great toe Z89.419
[2019-06-28 11:57] VITALS: BP 153/77; PULSE 70; RESP 20; TEMP 36.4; O2SAT 94
== END 2019-06-28 14:00 | disposition home or self-care (01) | DRG 617 ==
LOC: ER 16:15 → MEDSURG 18:27
PROVIDERS: Surgery; Admitting Provider Internal Medicine; Emergency Provider Emergency Medicine; Family Provider Internal Medicine; Visit Provider Internal Medicine
PROC: 0Y6P0Z0 Detachment at Right 1st Toe, Complete, Open Approach (ICD-10-PCS; 2019-06-25 10:00)
DX: E11.621 Type 2 diabetes mellitus with foot ulcer (principal); E11.52 Type 2 diabetes mellitus with diabetic peripheral angiopathy with gangrene; I96 Gangrene, not elsewhere classified; M86.8X7 Other osteomyelitis, ankle and foot; Z68.42 Body mass index [BMI] 45.0-49.9, adult; E11.628 Type 2 diabetes mellitus with other skin complications; I10 Essential (primary) hypertension; J44.9 Chronic obstructive pulmonary disease, unspecified; E11.42 Type 2 diabetes mellitus with diabetic polyneuropathy; L97.514 Non-pressure chronic ulcer of other part of right foot with necrosis of bone; F17.210 Nicotine dependence, cigarettes, uncomplicated; E66.01 Morbid (severe) obesity due to excess calories; B95.61 Methicillin susceptible Staphylococcus aureus infection as the cause of diseases classified elsewhere; Z79.84 Long term (current) use of oral hypoglycemic drugs; Z79.2 Long term (current) use of antibiotics; Z79.52 Long term (current) use of systemic steroids
CPT/HCPCS: 12345; 36415; 36416; 73630; 80048; 80053; 82962; 85025; 87040; 87070; 87077; 87176; 87186; 87205; 88305; 90471; 90686; 90732; 94640; 96372; 97161; 97530; 99283; J0330; J0744; J1644; J1815; J2001; J2405; J2543; J2704; J3010; J3370; J3490; J7030; J7050; L3260

== ENCOUNTER 2019-07-11 14:22 | Emergency (ER) | payer MEDICARE, MEDICAID, SELFPAY ==
[2019-07-11 14:23] VITALS: BMI 51.2
[2019-07-11 14:26] VITALS: BP 132/71; PULSE 74; RESP 18; TEMP 36.6; O2SAT 94
--- NOTE | 2019-07-11 14:37 | XRR_ITS ---
PROCEDURE INFORMATION: Exam: XR Right Foot Complete Exam date and time: 07/11/2019 3:52 PM Age: 68 years old Clinical indication: Condition or disease; Other: Infection/osteo/surgery; Prior surgery; Surgery date: 6+ months; Surgery type: Type and date of surgery not provided TECHNIQUE: Imaging protocol: XR Right foot. Views: 3 or more views. COMPARISON: CR XR foot RT min 3V* [id number] 06/23/2019 4:28 PM FINDINGS: Bones/joints: There is a satisfactory appearance of the postoperative changes 1st ray amputation. Moderate to severe degenerative changes in the midfoot are noted. There is a calcaneal enthesophyte. Soft tissues: There is gas in the soft tissues. There is soft tissue edema. No unexpected foreign body. XR/XR foot RT min 3V* [id number] IMPRESSION: Satisfactory postoperative changes.
--- NOTE | 2019-07-11 14:37 | W.ED.WOUNDLC ---
HPI - Wound/Laceration General: Chief Complaint: Wound/Laceration Stated Complaint: WOUND Time Seen by Provider: 07/11/19 14:27 Source: patient Mode of arrival: ambulatory Limitations: no limitations History of Present Illness: HPI narrative: Patient is a 68-year-old male with a history of non-controlled diabetes here for an infection to his right foot. Patient was seen at our facility around 06/23 and subsequently admitted for osteomyelitis about his right great toe. On 06/25 Dr. Pretty took patient to surgery for amputation and debridement. Patient was seen by Dr. Pretty on 07/07 for a wound follow-up and sutures were removed at that time. Dr. Pretty's note did not note any redness about the wound. Patient states yesterday he began noticing the redness/warmth. Reading patient's old notes he is notoriously noncompliant with the vast majority of treatment regimens. Associated symptoms: Denies chills, fever(s), nausea or vomiting Review of Systems Const: Denies: fever, chills, body aches, change in appetite, change in weight, fatigue or malaise Card: Denies: chest pain, palpitations, edema or lightheadedness Resp: Denies: shortness of breath or productive cough GI: Denies: abdominal pain, nausea, vomiting or diarrhea Musc: Reports: other (redness/warmth to R foot) PFSH ED PFSH: Medical History COPD (chronic obstructive pulmonary disease) Diabetes HTN (hypertension) Smoking addiction Surgical History (Updated 07/11/19 @ 23:46 by Dao James MD) No history of previous surgery Status post amputation of great toe Doing well. Will finish 7 more days of Augmentin, follow-up in surgery clinic/wound clinic Social History Smoking and tobacco status: former smoker Alcohol intake: never Lives independently: Yes Household members: none Marital status: Single Current occupational status: retired Physical Exam Const: COMMON NORMALS: no apparent distress, oriented x3 and alert GENERAL APPEARANCE: disheveled and other (poor overall hygiene; malodorous ) NUTRITIONAL APPEARANCE: obese Resp: COMMON NORMALS: normal respiratory effort and clear to auscultation bilaterally AUSCULTATION: clear to auscultation bilaterally Cardio: COMMON NORMALS: regular rate and regular rhythm RATE: regular rate RHYTHM: regular rhythm Extremity: OTHER: Patient with amputated right great toe. His first metatarsal head is exposed. There is erythema and warmth starting at the wound on the dorsal surface and extending proximally about 3 inches and affects 2 & 3 digits. Area is warm to the touch. There is no diffuse discharge or odor noted at this time. Neuro: COMMON NORMALS: oriented x3 SENSORIUM/ORIENTATION: Yes alert Skin: OTHER: see extremity assessment Course Consultations: Consultation #1: Dr. Pretty-states that when he saw patient 3 days ago he did have redness to the foot and his metatarsal head was exposed. Cultures from surgery grew MSSA and staph epidermidis so we will place patient on Keflex/Bactrim and have CM get him a follow up appointment with wound care on Thursday. If no improvement then he likely will need admitted for IV abx. He was given IV vanc/zosyn here. Vital Signs: Vital signs: Vital Signs Temperature 97.8 F 07/11/19 14:26 Pulse Rate 83 07/11/19 17:59 Respiratory Rate 18 07/11/19 17:59 Blood Pressure 132/71 07/11/19 17:59 Pulse Oximetry 95 07/11/19 17:59 MDM - Wound/Laceration MDM Narrative: Medical decision making narrative: Patient is a chronic noncompliant diabetic-sugars 329 today. He does have a white count of 15.3. Patient is not tachycardic or febrile. Foot XR does not show any osseous destruction about the first metatarsal. I spoke to Dr. Pretty regarding the redness and warmth to the foot. He states this was present during his visit with the patient 3 days ago (his office note however does state there was no erythema present). Patient was treated with IV antibiotics here and will be placed on oral Keflex and Bactrim. He will need very close follow-up with wound care and we will have case management try to get him an appointment on Thursday. Dressings need to be changed twice daily. Lab Data: Labs: Lab Results 07/11/19 07/11/19 07/11/19 Range/Units 14:48 15:09 15:09 WBC 15.3 H (4.0-10.0) 10^3/ uL RBC 4.42 (4.1-5.3) 10^6/u L Hgb 12.5 (11.7-16.6) g/dL Hct 39.0 L (42.0-52.0) % MCV 88.2 (80-94) fL MCH 28.3 (28.0-34.0) pg MCHC 32.1 (30.0-36.0) g/dL RDW 13.2 (12.1-15.1) % Plt Count 360 (130-400) 10^3/c mm MPV 10.9 H (7.4-10.4) fL Neut % (Auto) 77.8 % Lymph % (Auto) 11.0 % [place] % (Auto) 10.4 % Eos % (Auto) 0.3 % Baso % (Auto) 0.2 % Neut # (Auto) 11.9 H (1.8-7.7) 10^3/u L Lymph # (Auto) 1.7 (0.8-4.8) 10^3/u L [place] # (Auto) 1.6 H (0.2-0.9) 10^3/u L Eos # (Auto) 0.0 (0.0-0.8) 10^3/u L Baso # (Auto) 0.0 (0.0-0.1) 10^3/u L Nucleated RBC % (a uto) 0 % Nucleated RBCs # 0.0 /100WBC ESR 98 H (0-10) mm/hr Sodium (136-145) mmol/L Potassium (3.5-5.1) mmol/L Chloride (98-107) mmol/L Carbon Dioxide (22-29) mmol/L Anion Gap (5-19) BUN (8-23) mg/dL Creatinine (0.7-1.2) mg/dL GFR Calculation (90-130) mL/min Glucose (65-115) mg/dL POC Glucose 308 (70-110) mg/dL Calculated Osmolal ity (285-295) mOsm/k g Calcium (8.5-10.5) mg/dL Total Bilirubin (0.15-1.2) mg/dL AST (0-40) U/L ALT (0-41) U/L Alkaline Phosphata se (40-130) IU/L C-Reactive Protein (0.0-4.9) mg/L Total Protein (6.6-8.7) g/dL Albumin (3.5-5.2) g/dL Globulin (1.3-4.6) g/dL 07/11/19 Range/Units 15:09 WBC (4.0-10.0) 10^3/ uL RBC (4.1-5.3) 10^6/u L Hgb (11.7-16.6) g/dL Hct (42.0-52.0) % MCV (80-94) fL MCH (28.0-34.0) pg MCHC (30.0-36.0) g/dL RDW (12.1-15.1) % Plt Count (130-400) 10^3/c mm MPV (7.4-10.4) fL Neut % (Auto) % Lymph % (Auto) % [place] % (Auto) % Eos % (Auto) % Baso % (Auto) % Neut # (Auto) (1.8-7.7) 10^3/u L Lymph # (Auto) (0.8-4.8) 10^3/u L [place] # (Auto) (0.2-0.9) 10^3/u L Eos # (Auto) (0.0-0.8) 10^3/u L Baso # (Auto) (0.0-0.1) 10^3/u L Nucleated RBC % (a uto) % Nucleated RBCs # /100WBC ESR (0-10) mm/hr Sodium 131 L (136-145) mmol/L Potassium 4.1 (3.5-5.1) mmol/L Chloride 90 L (98-107) mmol/L Carbon Dioxide 24 (22-29) mmol/L Anion Gap 21.1 H (5-19) BUN 41 H (8-23) mg/dL Creatinine 1.7 H (0.7-1.2) mg/dL GFR Calculation 40.3 L (90-130) mL/min Glucose 329 H (65-115) mg/dL POC Glucose (70-110) mg/dL Calculated Osmolal ity 283 L (285-295) mOsm/k g Calcium 9.8 (8.5-10.5) mg/dL Total Bilirubin 0.3 (0.15-1.2) mg/dL AST 13 (0-40) U/L ALT 15 (0-41) U/L Alkaline Phosphata se 91 (40-130) IU/L C-Reactive Protein 319.2 H (0.0-4.9) mg/L Total Protein 8.1 (6.6-8.7) g/dL Albumin 3.1 L (3.5-5.2) g/dL Globulin 5.0 H (1.3-4.6) g/dL Discharge Plan Discharge Patient Disposition: Home, Self-Care Clinical Impression: Cellulitis of foot, right Status post amputation of great toe Qualifiers: Laterality: right Qualified Code(s): Z89.411 - Acquired absence of right great toe Condition: Stable Prescriptions: New Keflex 500 mg capsule 500 mg PO Q6H 7 Days Qty: 28 RF: 0 Bactrim DS 800-160 mg tablet 1 tab PO BID 7 Days Qty: 14 RF: 0 No Action metoprolol tartrate 25 mg tablet 25 mg PO BID 90 Days Qty: 180 RF: 3 metformin 1,000 mg tablet 1,000 mg PO BID Qty: 60 RF: 3 hydrochlorothiazide 25 mg tablet 25 mg PO DAILY Qty: 90 RF: 3 glimepiride 4 mg tablet 4 mg PO BID RF: 0 ergocalciferol (vitamin D2) [Vitamin D2] 50,000 unit Capsule See Rx Instructions .ROUTE .COMPLEX RF: 0 albuterol sulfate [Ventolin HFA] 90 mcg/actuation HFA aerosol inhaler 1 puff INHALATION QID PRN (Reason: Shortness Of Breath) RF: 0 fluoxetine 20 mg capsule 20 mg PO DAILY RF: 0 dicyclomine 10 mg capsule 10 mg PO TID RF: 0 levalbuterol tartrate [Xopenex HFA] 45 mcg/actuation HFA aerosol inhaler 2 puff INHALATION QID RF: 0 Symbicort 160-4.5 mcg/actuation HFA aerosol inhaler 2 puff INHALATION BID RF: 0 Invokana 300 mg tablet 300 mg PO DAILY RF: 0 Augmentin 875-125 mg tablet 1 tab PO BID Qty: 14 RF: 0 Discharge Orders: Discharge Order (Routine); Ordered 07/11/19 Ordered By: Gila Garcia Referrals: Ector Peña MD [Family Provider] - Activity Restrictions/Additional Instructions: As discussed you need to keep wound very clean at home and dressings need to be changed twice daily. We will get you follow-up with wound care this week for evaluation. You need to fill your prescriptions and start on the antibiotics immediately. Return to the emergency department immediately for worsening redness, redness streaking up your leg, fevers greater than 100.4, or generally feeling ill. Make sure you are taking your diabetic medications. Discharge Date/Time: 07/11/19 18:01 Coding Level of Care Code ED Vat Overhauler for Nirmala Fwkhalida Exam Expanded Problem Focused
[2019-07-11 15:19] LABS: Basophils % 0.2 %; Eosinophils % 0.3 %; Hemoglobin 12.5 g/dL (11.7-16.6); Lymphocytes # 1.7 10^3/uL (0.8-4.8); Mean Corpuscular HGB Conc 32.1 g/dL (30.0-36.0); Mean Corpuscular Hemoglobin 28.3 pg (28.0-34.0); Mean Corpuscular Volume 88.2 fL (80-94); Mean Platelet Volume 10.9 fL (7.4-10.4); Monocytes # 1.6 10^3/uL (0.2-0.9); Monocytes % 10.4 %; Neutrophils # 11.9 10^3/uL (1.8-7.7); Neutrophils % 77.8 %; Nucleated Red Blood Cells % 0 %; Platelet Count 360 10^3/cmm (130-400); Red Blood Count 4.42 10^6/uL (4.1-5.3); Red Cell Distribution Width 13.2 % (12.1-15.1); White Blood Count 15.3 10^3/uL (4.0-10.0)
[2019-07-11 15:21] LABS: Glucose Point of Care 308 mg/dL (70-110)
[2019-07-11 15:35] LABS: Alanine Aminotransferase 15 U/L (0-41); Albumin Level 3.1 g/dL (3.5-5.2); Alkaline Phosphatase 91 IU/L (40-130); Anion Gap 21.1 (5-19); Aspartate Amino Transferase 13 U/L (0-40); Blood Urea Nitrogen 41 mg/dL (8-23); C Reactive Protein 319.2 mg/L (0.0-4.9); Calcium 9.8 mg/dL (8.5-10.5); Carbon Dioxide 24 mmol/L (22-29); Chloride 90 mmol/L (98-107); Glomerular Filtration Rate 40.3 mL/min (90-130); Glucose 329 mg/dL (65-115); Osmolality Calculated 283 mOsm/kg (285-295); Potassium 4.1 mmol/L (3.5-5.1); Sodium 131 mmol/L (136-145); Total Bilirubin 0.3 mg/dL (0.15-1.2); Total Protein 8.1 g/dL (6.6-8.7)
[2019-07-11] MEDS: vancomycin 1,000 MG in sodium chloride 0.9% 250 ML 250 MG IV (16:05)
[2019-07-11 16:23] LABS: Erythrocyte Sedimentation Rate 98 mm/hr (0-10)
[2019-07-11] MEDS: piperacillin-tazobactam 3.375 GM in sodium chloride 0.9% (plus) 50 ML IV (17:15)
--- NOTE | 2019-07-11 17:40 | PC.NURSE ---
foot rewrapped andabx completed
[2019-07-11 17:59] VITALS: BP 132/71; PULSE 83; RESP 18; O2SAT 95
--- NOTE | 2019-07-12 10:29 | DCPLANNER ---
franchise development manager had message to schedule a follow up appointment for patient with Wound Care. franchise development manager called [facility], spoke with Екатерина, was told that Karina will follow up with patient at facility.
== END 2019-07-11 18:01 | disposition home or self-care (01) ==
PROVIDERS: Emergency Provider Physician Assistant; Family Provider Internal Medicine
DX: L03.115 Cellulitis of right lower limb (principal); B95.61 Methicillin susceptible Staphylococcus aureus infection as the cause of diseases classified elsewhere; B95.7 Other staphylococcus as the cause of diseases classified elsewhere; I10 Essential (primary) hypertension; J44.9 Chronic obstructive pulmonary disease, unspecified; E66.9 Obesity, unspecified; Z68.43 Body mass index [BMI] 50.0-59.9, adult; E11.8 Type 2 diabetes mellitus with unspecified complications; Z79.84 Long term (current) use of oral hypoglycemic drugs; Z79.51 Long term (current) use of inhaled steroids; Z87.891 Personal history of nicotine dependence; Z89.411 Acquired absence of right great toe; M79.661 Pain in right lower leg; E11.621 Type 2 diabetes mellitus with foot ulcer; L97.516 Non-pressure chronic ulcer of other part of right foot with bone involvement without evidence of necrosis; F17.200 Nicotine dependence, unspecified, uncomplicated
CPT/HCPCS: 12345; 36415; 36416; 73630; 80053; 82962; 85025; 85651; 86140; 87040; 96365; 96367; 99205; 99214; 99281; 99282; 99284; J2543; J3370; J7050

== ENCOUNTER 2019-07-11 23:39 | Emergency (ER) | payer MEDICARE, MEDICAID, SELFPAY ==
--- NOTE | 2019-07-11 23:31 | ED_ITS ---
Entered by Imani Cohen, acting as scribe for Dao James MD HPI - General Adult General: Chief complaint: Fall Stated complaint: FALL Time Seen by Provider: 07/11/19 23:32 Source: EMS Mode of arrival: EMS Limitations: no limitations History of Present Illness: HPI narrative: 68 yo m came to the er bu [facility] to be medically cleared so that he can go back to the detention today. Pt states that he was here earlier and was sent back to his home and not the detention so the detention wants the pt to be medically cleared before he can go back. Patient had a recent surgery on right great toe. Patient does see wound care. complaint: fall Onset (ago): day(s) (today) Location: right (foot) Radiation: non-radiation Severity: mild Relieving factors: none Exacerbating factors: none Associated symptoms: Reports no associated symptoms; Deny chest pain, dyspnea, headache(s), nausea, rash or vomiting Review of Systems General: Reports: other (negative unless marked) Const: Denies: fever, chills, body aches or change in appetite Eyes: Denies: blurry vision or eye discomfort ENMT: Denies: throat pain or dental pain Card: Denies: chest pain Resp: Denies: shortness of breath GI: Denies: abdominal pain, nausea, vomiting or diarrhea : Denies: painful urination Musc: Denies: neck pain or back pain Skin/Breast: Denies: rash Neuro: Denies: headache Psych: Denies: depression Mega/Lymph: Denies: easy bruising All/Imm: Denies: hives PFSH ED PFSH: Medical History COPD (chronic obstructive pulmonary disease) Diabetes HTN (hypertension) Smoking addiction Surgical History (Updated 07/11/19 @ 23:46 by Dao James MD) No history of previous surgery Status post amputation of great toe Doing well. Will finish 7 more days of Augmentin, follow-up in surgery clinic/wound clinic Social History Smoking and tobacco status: former smoker Alcohol intake: never Lives independently: Yes Household members: none Marital status: Single Current occupational status: retired Physical Exam Const: COMMON NORMALS: no apparent distress, oriented x3 and healthy appearing HENMT: COMMON NORMALS: normocephalic and head/scalp atraumatic HEAD & SCALP: normocephalic and atraumatic Eye: COMMON NORMALS: PERRL and EOMs intact bilaterally PUPIL: Yes PERRL Neck/C-Spine: COMMON NORMALS: full ROM and supple Chest: COMMONS NORMALS: inspection of chest normal and palpation of chest normal Resp: COMMON NORMALS: normal respiratory effort, no retractions, no use of accessory muscles and clear to auscultation bilaterally AUSCULTATION: clear to auscultation bilaterally Cardio: COMMON NORMALS: regular rate, regular rhythm and no murmurs RATE: regular rate RHYTHM: regular rhythm GI: COMMON NORMALS: normal to inspection, nondistended, normoactive bowel sounds, soft to palpation, non-tender and no masses PALPATION: Yes soft Extremity: COMMON NORMALS: full ROM NARRATIVE EXTREMITY EXAM: Recent removal of right great toe. Patient has mild erythema and cellulitis around the foot with no signs of osteo-no drainage at this time. Neuro: COMMON NORMALS: oriented x3, moves all extremities and no focal motor deficits Psych: COMMON NORMALS: mental status grossly normal, thought process normal and cooperative THOUGHT PROCESS: normal thought process Skin: COMMON NORMALS: no rashes or lesions noted and no wounds GENERAL SKIN EXAM: no rashes or lesions noted Course 2 Vital Signs: Vital signs: Vital Signs Temperature 98.1 F 07/11/19 23:33 Pulse Rate 72 07/11/19 23:49 Respiratory Rate 18 07/11/19 23:49 Blood Pressure 110/51 07/11/19 23:49 Pulse Oximetry 92 07/11/19 23:49 MDM - General Adult MDM Narrative: Medical decision making narrative: Patient presents here with cellulitis to his right foot. Very mild in nature. Patient has no fever here and blood pressure is normal. He had no injuries while he was at home today. Patient here is well-appearing and able answer all my questions. I reviewed midlevel's note from earlier today and she had spoken to a surgeon who had seen him on the sixth and is to follow-up with him shortly. We will make sure patient's gets Bactrim and Keflex he is stable for discharge back to the detention. He is return if worsening. Discharge Plan Discharge Patient Disposition: Home, Self-Care Clinical Impression: Cellulitis of foot, right Status post amputation of great toe Qualifiers: Laterality: right Qualified Code(s): Z89.411 - Acquired absence of right great toe Condition: Stable Prescriptions: Continued Keflex 500 mg capsule 500 mg PO Q6H 7 Days Qty: 28 RF: 0 Bactrim DS 800-160 mg tablet 1 tab PO BID 7 Days Qty: 14 RF: 0 No Action metoprolol tartrate 25 mg tablet 25 mg PO BID 90 Days Qty: 180 RF: 3 metformin 1,000 mg tablet 1,000 mg PO BID Qty: 60 RF: 3 hydrochlorothiazide 25 mg tablet 25 mg PO DAILY Qty: 90 RF: 3 glimepiride 4 mg tablet 4 mg PO BID RF: 0 ergocalciferol (vitamin D2) [Vitamin D2] 50,000 unit Capsule See Rx Instructions .ROUTE .COMPLEX RF: 0 albuterol sulfate [Ventolin HFA] 90 mcg/actuation HFA aerosol inhaler 1 puff INHALATION QID PRN (Reason: Shortness Of Breath) RF: 0 fluoxetine 20 mg capsule 20 mg PO DAILY RF: 0 dicyclomine 10 mg capsule 10 mg PO TID RF: 0 levalbuterol tartrate [Xopenex HFA] 45 mcg/actuation HFA aerosol inhaler 2 puff INHALATION QID RF: 0 Symbicort 160-4.5 mcg/actuation HFA aerosol inhaler 2 puff INHALATION BID RF: 0 Invokana 300 mg tablet 300 mg PO DAILY RF: 0 Augmentin 875-125 mg tablet 1 tab PO BID Qty: 14 RF: 0 Discharge Orders: Discharge Order (Routine); Ordered 07/11/19 Ordered By: Dao James Referrals: Ector Peña MD [Family Provider] - Discharge Diet: Advance as tolerated Discharge Activity: Resume usual activity Patient Instructions: Cellulitis (ED) Coding Level of Care Code ED Valuation Consultant for g Fwd The documentation recorded by the Noel yoon Stephanie Lyn, accurately reflects the service I personally performed and the decisions made by Jacob amaya Korby, MD
[2019-07-11 23:33] VITALS: BP 106/51; PULSE 72; RESP 16; TEMP 36.7; O2SAT 95; BMI 49.6
[2019-07-11 23:49] VITALS: BP 110/51; PULSE 72; RESP 18; O2SAT 92
== END 2019-07-12 00:58 | disposition home or self-care (01) ==
LOC: ER 07-12 00:02
PROVIDERS: Emergency Provider Emergency Medicine; Family Provider Internal Medicine
DX: L03.115 Cellulitis of right lower limb (principal); Z89.411 Acquired absence of right great toe; M79.661 Pain in right lower leg; E11.621 Type 2 diabetes mellitus with foot ulcer; L97.516 Non-pressure chronic ulcer of other part of right foot with bone involvement without evidence of necrosis; J44.9 Chronic obstructive pulmonary disease, unspecified; I10 Essential (primary) hypertension; F17.200 Nicotine dependence, unspecified, uncomplicated
CPT/HCPCS: 12345; 99281

== ENCOUNTER 2019-07-29 15:22 | Inpatient (IN) | payer MEDICARE, MEDICAID, SELFPAY ==
--- NOTE | 2019-07-29 15:38 | PM.HP ---
Providers/Chief Complaint Admitting Physician: Hugo Burden MD Chief Complaint: CLLULITIS RIGHT LEG History of Present Illness Cecilio Díaz is a 68 year old male today as a direct admission from wound care clinic. From my understanding, he has had some exposed bone right foot, right great toe amputation site. He had his amputation on June 252019. He reports the area has been draining. It has been open. He has been taking some antibiotics from wound care, and getting dressing changes. It is not improving. He denies any fever, cough, recent travel. Review of Systems General: Reports: 10 or more systems reviewed and unremarkable except in HPI and below Const: Denies: fever or chills Eyes: Denies: change in vision ENMT: Denies: throat pain Card: Denies: chest pain Resp: Denies: shortness of breath GI: Denies: abdominal pain : Denies: flank pain Musc: Reports: extremity pain and extremity swelling Skin/Breast: Denies: rash Neuro: Denies: headache Psych: Reports: depression Endo: Denies: excessive urination Mega/Lymph: Denies: easy bruising All/Imm: Denies: hives Medications/Allergies Allergies Allergy/AdvReac Type Severity Reaction Status Date / Time No Known Allergies Allergy Verified 07/11/19 14:26 PFSH Acute PFSH: Medical History COPD (chronic obstructive pulmonary disease) Depression Diabetes HTN (hypertension) Smoking addiction Surgical History No history of previous surgery Status post amputation of great toe Doing well. Will finish 7 more days of Augmentin, follow-up in surgery clinic/wound clinic Family History Other Healthy adult Social History Smoking and tobacco status: former smoker Alcohol intake: never Lives independently: Yes Household members: none Marital status: Single Current occupational status: retired Physical Exam Narrative: EXAM NARRATIVE: General exam demonstrates a white male, conversant, reports occasional right foot pain but not severe. HEENT: Pupils equally round. Oropharynx clear. Neck is supple no lymphadenopathy or thyromegaly Cardiovascular regular rate and rhythm without murmur, no S3 or S4 Lungs clear no wheezing or crackles Abdomen is soft with positive bowel sounds, obese was deferred Extremities no cyanosis clubbing. Slight edema right lower extremity. Some surrounding cellulitis to the right great toe amputation site with some exposed bone. Data Other data: All laboratories pending A&P Assessment and plan (1) Diabetic foot infection: Evidence of diabetic foot ulcer at right great toe amputation site, with exposed bone and surrounding cellulitis. Initiation of vancomycin and Zosyn Surgical consult with general surgery for evaluation, debridement X-ray right foot to evaluate for more extensive changes of osteomyelitis Sedimentation rate, CRP for baseline considering concern for osteomyelitis Status: Acute Code(s): E11.628 - Type 2 diabetes mellitus with other skin complications; L08.9 - Local infection of the skin and subcutaneous tissue, unspecified Additional A&P Information Type 2 diabetes. Sliding scale insulin. Depression, continue fluoxetine History of COPD. No evidence of acute exacerbation. Continue nebulized treatments as needed, Symbicort or its equivalent Hypertension, continue meds DVT prophylaxis with heparin Full code Attestations Medical Necessity Statement*: Will need greater than 2 midnight stay for evaluation and treatment of osteomyelitis right foot Time Spent in Patient Care: Greater than 35 minutes Coding Level of Care Code Acute Marketing Communications Specialist for g Fwd Diagnoses Diabetic foot infection E11.628; L08.9
[2019-07-29 15:45] VITALS: BMI 44.1
--- NOTE | 2019-07-29 16:04 | XRR_ITS ---
PROCEDURE INFORMATION: Exam: XR Right Foot Exam date and time: 07/29/2019 5:47 PM Age: 68 years old Clinical indication: Other: Non healing ulcer; Additional info: Diabetic foot ulcer TECHNIQUE: Imaging protocol: XR Right foot. Views: 1 or 2 views. COMPARISON: CR XR foot RT min 3V* [id number] 07/11/2019 3:41 PM FINDINGS: Bones/joints: Disarticulation of the right great toe at the metatarsophalangeal joint. The metatarsal head is exposed to the air with a large overlying soft tissue ulceration. No visible bone destruction. Calcaneus spur. Soft tissues: Large soft tissue ulceration overlying the amputated right great toe. Diffuse soft tissue swelling of the foot. XR/XR foot RT 2V [id number] IMPRESSION: 1. Large soft tissue ulceration which exposes the right 1st metatarsal head. No visible bone destruction.
[2019-07-29 16:07] VITALS: BP 124/70; PULSE 83; RESP 18; TEMP 36.7; O2SAT 96
[2019-07-29] MEDS: heparin 5,000 unit/mL INJ 1 mL 5000 UNIT SUBCUT (16:57)
[2019-07-29] MEDS: piperacillin-tazobactam 3.375 GM in sodium chloride 0.9% (plus) 50 ML IV (16:57)
[2019-07-29 17:13] LABS: Alanine Aminotransferase 14 U/L (0-41); Alkaline Phosphatase 101 IU/L (40-130); Anion Gap 21.2 (5-19); Blood Urea Nitrogen 30 mg/dL (8-23); C Reactive Protein 123.6 mg/L (0.0-4.9); Carbon Dioxide 24 mmol/L (22-29); Chloride 91 mmol/L (98-107); Globulin 4.8 g/dL (1.3-4.6); Glomerular Filtration Rate 43.2 mL/min (90-130); Glucose 251 mg/dL (65-115); Osmolality Calculated 280 mOsm/kg (285-295); Potassium 4.2 mmol/L (3.5-5.1); Sodium 132 mmol/L (136-145); Total Bilirubin 0.2 mg/dL (0.15-1.2); Total Protein 7.8 g/dL (6.6-8.7)
[2019-07-29 17:20] LABS: Basophils % 0.4 %; Eosinophils # 0.2 10^3/uL (0.0-0.8); Eosinophils % 1.4 %; Hematocrit 37.2 % (42.0-52.0); Hemoglobin 11.7 g/dL (11.7-16.6); Lymphocytes # 2.2 10^3/uL (0.8-4.8); Lymphocytes % 19.5 %; Mean Corpuscular HGB Conc 31.5 g/dL (30.0-36.0); Mean Corpuscular Hemoglobin 28.4 pg (28.0-34.0); Mean Corpuscular Volume 90.3 fL (80-94); Mean Platelet Volume 10.1 fL (7.4-10.4); Monocytes % 9.4 %; Neutrophils # 7.6 10^3/uL (1.8-7.7); Neutrophils % 68.8 %; Nucleated Red Blood Cells % 0 %; Platelet Count 296 10^3/cmm (130-400); Red Blood Count 4.12 10^6/uL (4.1-5.3); Red Cell Distribution Width 13.8 % (12.1-15.1)
[2019-07-29 17:24] LABS: Aspartate Amino Transferase 16 U/L (0-40)
[2019-07-29 17:27] LABS: Glucose Point of Care 224 mg/dL (70-110)
[2019-07-29] MEDS: metoprolol tartrate 25 mg Tablet PO (17:35)
[2019-07-29 18:06] VITALS: PULSE 67; RESP 18; O2SAT 93
[2019-07-29 18:32] LABS: Erythrocyte Sedimentation Rate 104 mm/hr (0-10)
[2019-07-29 19:51] VITALS: PULSE 71; RESP 20; O2SAT 96
[2019-07-29 19:54] VITALS: PULSE 77; RESP 20; O2SAT 98
[2019-07-29 20:00] VITALS: BP 96/55; PULSE 75; RESP 20; TEMP 36.6; O2SAT 95
[2019-07-29 21:47] LABS: Glucose Point of Care 260 mg/dL (70-110)
[2019-07-30] VITALS (16 sets, daily range): BP systolic 105–146; BP diastolic 65–77; PULSE 62–81; RESP 10–29; TEMP 36.1–37.5; O2SAT 92–100
[2019-07-30] MEDS: piperacillin-tazobactam 3.375 GM in sodium chloride 0.9% (plus) 50 ML IV ×4 (00:12→17:26)
[2019-07-30] MEDS: heparin 5,000 unit/mL INJ 1 mL 5000 UNIT SUBCUT (04:28)
[2019-07-30 06:35] LABS: Glucose Point of Care 262 mg/dL (70-110)
[2019-07-30] MEDS: hydroCHLOROthiazide 25 mg Tablet PO (08:10)
[2019-07-30] MEDS: fluoxetine 20 mg Capsule PO (08:10)
[2019-07-30] MEDS: metoprolol tartrate 25 mg Tablet PO ×2 (08:10→17:26)
--- NOTE | 2019-07-30 08:29 | PM.PN ---
Subjective Subjective: Interval history: Overall patient feels better Cellulitis is less X ray showed: 1. Large soft tissue ulceration which exposes the right 1st metatarsal head. No visible bone destruction. Vitals/I&O/Wt Last Vital Signs Temp 97.8 F 07/30/19 07:50 Pulse 69 07/30/19 07:50 Resp 16 07/30/19 07:50 BP 146/74 07/30/19 07:50 Pulse Ox 95 07/30/19 07:50 07/29/19 07/30/19 07/30/19 22:59 06:59 14:59 Intake Total 410 / 410 Output Total 200 / 200 610 / 810 450 / 450 Balance 210 / 210 -610 / -400 -450 / -450 Weight last 48 hrs Weight 249 lb 7 oz Physical Exam Narrative: EXAM NARRATIVE: Patient is conscious alert BMI 44 Head and neck examination PERRLA no masses no cervical lymphadenopathy no jaundice Right foot wound continues to show exposed bone with less cellulitic changes surrounded by necrotic tissues involving the head of the first metatarsal bone. Data : 07/29/19 17:00 07/29/19 16:02 Micro: Microbiology 07/29/19 15:51 Blood Culture - Preliminary Blood SPECIMEN COLLECTED 07/29/19 16:02 Blood Culture - Preliminary Blood SPECIMEN COLLECTED A&P Assessment and plan (1) Non-pressure chronic ulcer of other part of right foot with necrosis of bone: After thorough history physical examination reviewing the chart and with my personal interpretation of the x-ray we will plan to proceed with surgery today in the form of debridement of the right foot wound and amputation at the mid metatarsal level of the first metatarsal bone, as patient's wound represent an urgent matter for the potential limb loss with sepsis and septic shock if left unaddressed. Will apply cover dressing for now Informed consent per chart were indications risks benefits and alternatives all discussed with the patient understanding that he may require further surgeries in the future. Assurance and education Status: Acute Code(s): L97.514 - Non-pressure chronic ulcer of other part of right foot with necrosis of bone Attestations Medical Necessity Statement*: Per hospitalist service Time Spent in Patient Care: 16 - 35 minutes (>than 50% of time spent in counselling and/or direct pt care on unit). Coding Level of Care Code Acute Scow Captain for g Fwd Diagnoses Non-pressure chronic ulcer of other part of right foot with necrosis of bone L91.404
[2019-07-30] MEDS: ipratropium-albuterol 3 mL Neb INHALATION (09:04)
--- NOTE | 2019-07-30 09:06 | P.ANESASSM_ITS ---
Pre-Anesthetic Assessment Pre-Anesthetic Assessment: Height/Weight: Height 1.6 m Weight 113.143 kg Temp Pulse Resp BP Pulse Ox 97.8 F 69 16 146/74 95 07/30/19 07:50 07/30/19 07:50 07/30/19 07:50 07/30/19 07:50 07/30/19 07:50 Preop Diagnosis: Necrotic right great toe Proposed Procedure: Operation Date: 07/30/19 10:10 Proposed Procedures p Debridement of Right foot, possible metatarsal amputation(Right) - Pancho Smith MD Familial anesthetic complications: None Was Beta Tim taken within 24 hours: N/A Last intake: Intake NPO > 8 hrs Last Liquid Date 07/29/19 Last Liquid Time 21:00 Last Solid Date 07/29/19 Last Solid Time 18:30 Social: Social History: No tobacco Packs per day: former smoker Exam: Pre-Anes Outpt Exam: alert, oriented x 3, clear to auscultation bilaterally and regular rate & rhythm Additional Exam Findings (including area of procedure): coarse breath sounds b/l - mild cough, about to receive breathing treatment Airway: Cervical ROM: WNL MP: 4 Additional comments: edentulous Pulmonary: Pulmonary: COPD CV/HEM: CV/HEM: HTN : : None reported Hepatic: Hepatic: None reported GI: GI: None reported Metabolic: Metabolic: DM and Morbid obesity Musc/skel: Musc/skel: None reported Neuropsych: Neuropsych: None reported Anesthetic Plan: ASA status: 3 Anesthesia: General Risk of > 500 ml blood loss (7ml/kg in children): No Meds/Allergies Current Medications: Current Medications Generic Name Dose Route Start Last Admin Trade Name Freq PRN Reason Stop Dose Admin Albuterol/Ipratrop ium 3 ml 07/29/19 16:08 07/30/19 09:04 Duoneb INHALATION 3 ml Q4H PRN Administration SHORTNESS OF CHRISTA TH Fluoxetine HCl 20 mg 07/30/19 09:00 07/30/19 08:10 Prozac PO 20 mg DAILY ESTHER Administration Heparin Sodium (Be ef Lung) 5,000 unit 07/29/19 16:15 07/30/19 04:28 Heparin SUBCUT 5,000 unit Q12H ESTHER Administration Hydrochlorothiazid e 25 mg 07/30/19 09:00 07/30/19 08:10 Hctz PO 25 mg DAILY ESTHER Administration Piperacillin Sod/T azobactam 50 mls @ 12.5 mls /hr 07/29/19 17:00 07/30/19 00:12 Sod 3.375 gm/ So dium Chloride IV 12.5 mls/hr Q8H ESTHER Administration Vancomycin HCl 1,5 00 mg/ 250 mls @ 166.667 mls/hr 07/29/19 18:30 07/29/19 21:52 Sodium Chloride IV 166.7 mls/hr Q24H ESTHER Administration Insulin Aspart 0 unit 07/29/19 18:00 07/30/19 08:09 Novolog SUBCUT 10 unit TIDWM ESTHER Administration Protocol Insulin Aspart 0 unit 07/29/19 21:00 07/29/19 21:52 Novolog SUBCUT 4 unit BEDTIME ESTHER Administration Protocol Metoprolol Tartrat e 25 mg 07/29/19 18:00 07/30/19 08:10 Lopressor PO 25 mg BID ESTHER Administration Fluticasone/Salmet denise 1 puff 07/29/19 20:00 07/30/19 09:04 Advair Diskus 50 0-50 INHALATION 1 puff BID.RESPIRATORY S CH Administration PFSH Anesthesia PFSH: Medical History COPD (chronic obstructive pulmonary disease) Depression Diabetes HTN (hypertension) Smoking addiction Surgical History No history of previous surgery Status post amputation of great toe Doing well. Will finish 7 more days of Augmentin, follow-up in surgery clinic/wound clinic Family History Other Healthy adult Social History Smoking and tobacco status: former smoker Alcohol intake: never Lives independently: Yes Household members: none Marital status: Single Current occupational status: retired Data Anesthesia CBC & Chem 7: 07/29/19 17:00 07/29/19 16:02 Other Labs: Laboratory Results - last 48 hr 07/29/19 07/29/19 07/29/19 16:02 17:00 17:00 WBC 11.0 H RBC 4.12 Hgb 11.7 Hct 37.2 L MCV 90.3 MCH 28.4 MCHC 31.5 RDW 13.8 Plt Count 296 MPV 10.1 Neut % (Auto) 68.8 Lymph % (Auto) 19.5 [place] % (Auto) 9.4 Eos % (Auto) 1.4 Baso % (Auto) 0.4 Neut # (Auto) 7.6 Lymph # (Auto) 2.2 [place] # (Auto) 1.0 H Eos # (Auto) 0.2 Baso # (Auto) 0.0 Nucleated RBC % (auto) 0 Nucleated RBCs # 0.0 ESR 104 H Sodium 132 L Potassium 4.2 Chloride 91 L Carbon Dioxide 24 Anion Gap 21.2 H BUN 30 H Creatinine 1.6 H GFR Calculation 43.2 L Glucose 251 H POC Glucose Calculated Osmolality 280 L Calcium 10.0 Total Bilirubin 0.2 AST 16 ALT 14 Alkaline Phosphatase 101 C-Reactive Protein 123.6 H Total Protein 7.8 Albumin 3.0 L Globulin 4.8 H 07/29/19 07/29/19 07/30/19 17:23 21:43 06:31 WBC RBC Hgb Hct MCV MCH MCHC RDW Plt Count MPV Neut % (Auto) Lymph % (Auto) [place] % (Auto) Eos % (Auto) Baso % (Auto) Neut # (Auto) Lymph # (Auto) [place] # (Auto) Eos # (Auto) Baso # (Auto) Nucleated RBC % (auto) Nucleated RBCs # ESR Sodium Potassium Chloride Carbon Dioxide Anion Gap BUN Creatinine GFR Calculation Glucose POC Glucose 224 260 262 Calculated Osmolality Calcium Total Bilirubin AST ALT Alkaline Phosphatase C-Reactive Protein Total Protein Albumin Globulin Micro: Microbiology 07/29/19 15:51 Blood Culture - Preliminary Blood SPECIMEN COLLECTED 07/29/19 16:02 Blood Culture - Preliminary Blood SPECIMEN COLLECTED Cardiac Studies: No Data to Display
--- NOTE | 2019-07-30 10:37 | ECG_ITS ---
Measurements Intervals [place] Rate: 72 P: 57 NH: 163 QRS: -27 QRSD: 124 T: 25 QT: 402 QTc: 440 SINUS RHYTHM BORDERLINE LEFT AXIS DEVIATION [QRS AXIS < -20] MODERATE INTRAVENTRICULAR CONDUCTION DELAY [110+ ms QRS DURATION] No previous ECG available for comparison Electronically Signed On 07-30-2019 17:10:38 CDT by Brandee Foley M.D. [email or web address]
--- NOTE | 2019-07-30 10:37 | PM.PN ---
Subjective Subjective: Interval history: Patient reports he is doing fine. He is awaiting a surgery. Medications: Reviewed: Yes Vitals/I&O/Wt Last Vital Signs Temp 97.8 F 07/30/19 07:50 Pulse 78 07/30/19 09:12 Resp 18 07/30/19 09:07 BP 146/74 07/30/19 07:50 Pulse Ox 96 07/30/19 09:07 07/29/19 07/30/19 07/30/19 22:59 06:59 14:59 Intake Total 410 / 410 50 / 460 Output Total 200 / 200 610 / 810 450 / 450 Balance 210 / 210 -560 / -350 -450 / -450 Weight last 48 hrs Weight 113.143 kg Physical Exam Narrative: EXAM NARRATIVE: General exam is no apparent distress Cardiovascular regular rate and rhythm without murmur, no S3 or S4 Lungs clear no wheezing or crackles Abdomen is soft with positive bowel sounds, obese was deferred Extremities no cyanosis clubbing. No significant edema right lower extremity. Dressing was not removed. Data : 07/29/19 17:00 07/29/19 16:02 Micro: Microbiology 07/29/19 15:51 Blood Culture - Preliminary Blood SPECIMEN COLLECTED 07/29/19 16:02 Blood Culture - Preliminary Blood SPECIMEN COLLECTED A&P Assessment and plan (1) Diabetic foot infection: Evidence of diabetic foot ulcer at right great toe amputation site, with exposed bone and surrounding cellulitis. Continue vancomycin and Zosyn Surgical consult with general surgery for evaluation, debridement X-ray did not show any more extensive cellulitis of any other bones. Sedimentation rate was elevated Surgery planned today. Check EKG. No direct contraindications to surgery. He denies any anesthetic complications, recent chest discomfort. Length of hospital stay to be determined following surgical debridement, assessment of viability of underlying tissue Status: Acute Code(s): E11.628 - Type 2 diabetes mellitus with other skin complications; L08.9 - Local infection of the skin and subcutaneous tissue, unspecified Additional A&P Information Type 2 diabetes. Sliding scale insulin. Depression, continue fluoxetine History of COPD. No evidence of acute exacerbation. Continue nebulized treatments as needed, Symbicort or its equivalent Hypertension, continue meds DVT prophylaxis with heparin Full code Attestations Medical Necessity Statement*: Needs continued hospital stay for definitive surgery secondary to exposed bone, right great toe amputation site with surrounding cellulitis. Coding Level of Care Code Acute Spring Salvage Worker for Chg Fwd Diagnoses Diabetic foot infection E11.628; L08.9
[2019-07-30 11:20] LABS: Glucose Point of Care 161 mg/dL (70-110)
--- NOTE | 2019-07-30 12:06 | PC.CHAP ---
Pastoral Care Encounter/Spiritual Assessment Type of Contact [] Declined rope silica machine operator visit [] Patient/Family/Request visit [] Outpatient visit [] Follow-up visit [] Physician referral [] Code/Alert [X] Routine visit [] Staff referral [] Actively dying [] Patient sleeping [] Family support [] [] Out of room [] Palliative care [] [] Receiving care in room [] Pre-surgical visit [] Trauma [] Long length of stay [] ICU visit [] Other: Relational/Emotional Strength [] Patient feels connected with others/family/visitors/staff [] Distress [] Loneliness/isolation [] Abandonment Spirituality of Patient [] Person of Argelia [] Attends Latter-Day of their Argelia [] Believes in Prayer [] Reads Bible or Jehovah'S Witness materials [] There are Spiritual issues to be addressed Plant Wrapper Interventions [] Prayer [] Active listening [] Non-anxious presence [] Spiritual/emotional support [] Crisis/trauma care [] Spiritual counseling [] Bereavement support [] Provided bereavement packet [] Provided Bible/devotional materials [] Provided toy/stuffed animal, coloring book to patient or family member [] Provided Communion [] Anointing/Christiana [] Salvation [] Completed spiritual assessment [] Other: Impact on Illness or Injury [] Angry [] Fearful [] Anxious [] Often cries [] Exhaustion [] Unable to work [] Unable to attend zoroastrianism [] Unable to walk/stand [] Unable to read [] Unable to drive [] Unable to eat/drink [] Unable to sleep [] Unable to be with family [] Patient intubated [] Other: Summary Time spent with patient
[2019-07-30] MEDS: sodium chloride 0.9% 1,000 ML 30 ML IV (14:15)
[2019-07-30] MEDS: neomycin-poly-bacitracin oint 28 gm 1 APPLIC TOPICAL (15:45)
[2019-07-30] MEDS: lidocaine 2% INJ 20 mL INJECTION (15:45)
--- NOTE | 2019-07-30 15:57 | P.OP_ITS ---
Operative Report Date of procedure: July 30, 2019 Pre-op Diagnosis: Necrotic right great toe Post-op diagnosis: same Post-op Findings: Osteomyelitis of the distal end of the first metatarsal bone with necrotic tissues at the bed of the wound No evidence of pus Procedure Done: Amputation of mid metatarsal of the first metatarsal bone Sharp debridement of the wound cavity Implants: Mj-Melo drain Specimens removed/disposition: 1-soft tissues for cultures and sensitivity 2-bone for cultures and sensitivity 3-metatarsal bone for permanent pathology Surgeon: Pancho Smith Engineering Director: Surgical shaji Ibrahim Circulating nurse Gadiel Anesthesia: MAC (Calvin Bravo) Estimated blood loss (mL): 10 Condition: stable Disposition: floor Procedure: After identifying the patient holding area, the right lower extremity was marked before the procedure by myself, patient was then taken to the operative suite,was placed in supine position,IV antibiotics were given per protocol,IV propofol was infused by the anesthesia provider,prep and drape of the wound region was done under the usual sterile technique. Time-out was done verifying the patient's name/date of /planned procedure and destination after the procedure, all were in agreement. Started by excising the unhealthy necrotic indurated tissues of the wound.Incision was created at the skin level and went all the way down to the Bone level the head of the metatarsal bone which was already exposed,wound was excised including unhealthy tissues.I did extend the incision cephalad towards the medial arch of the foot to allow further dissection to the healthier part of the proximal first metatarsal bone. Wound measurement ; Pre Debridement measurements; 5.5 x 4.2 x 2 cm Post-debridement measurement; 8 x 4.5 x [address] to the bone Sharp Debridement all the way to the healthier tissues Part of the exposed metatarsal head was sent for cultures and sensitivities as well as the surrounding necrotic tissues. At this point I decided to amputate the first metatarsal bone at the proximal healthier level Soft tissues were retracted proximally using a freerer, to expose the proximal part of the proximal phalanx were a electric bone saw was applied to amputate the first metatarsal bone, the specimen was then passed to the circulating nurse for permanent pathology,an electric bone rasp was then used to Sooth the edges of the amputated bone,hemostasis was achieved followed by irrigation using Pu lsavac 3 L. The wound bed at this point looks healthier and was appropriate to attempt closure,2-0 Vicryl were used to cover the bone with the surrounding soft tissues, followed by 0 Prolene sutures as [id number] to approximate the wound edges,Infiltration of lidocaine 2% 10 ml.prior to that a 10 Vincentian Mj-Melo drain was placed at the distal part of the wound and secured to the skin with 2-0 silk Antibiotic ointment was placed on the suture line followed by Telfa, ABDs was done with Kerlix and Horace wrap. Patient tolerated the procedure well, count of instruments,needles and sponges were completed at the end of the procedure. And then patient was taken to the recovery area in stable condition. I was present for the whole entire procedure
--- NOTE | 2019-07-30 16:03 | SUR.PHASEI ---
1600 PATIENT TO PACU AT THIS TIME. RR EVEN AND UNLABORED. PLACED ON SIMPLE MASK AT 8L, SPO2 98%. PATIENT DENIES PAIN. DRESSING TO RIGHT FOOT, CDI WITH ERIKA DRAIN IN PLACE.
--- NOTE | 2019-07-30 16:24 | ANE.PACU2 ---
 Inpatient post-anesthesia follow up: Airway intact: Yes Vital signs: Temperature 97.8 F Pulse Rate 78 Respiratory Rate 29 Blood Pressure 125/68 Pulse Oximetry 95 Oxygen Delivery Me thod Room Air Oxygen Flow Rate 8 Fraction of Inspir ed Oxygen Hydration adequate: Yes Nausea and vomiting: No Pain level: 1 Mental status: Baseline
--- NOTE | 2019-07-30 16:33 | SUR.PHASEI ---
1617 PATIENT TO MED SURG AT THIS TIME. NO DISTRESS. RR EVEN AND UNLABORED. PATIENT DENIES PAIN. DRESSING CDI TO RIGHT FOOT WITH ARGELIA DRAIN.
[2019-07-30 17:15] LABS: Glucose Point of Care 189 mg/dL (70-110)
[2019-07-30 20:46] LABS: Glucose Point of Care 249 mg/dL (70-110)
[2019-07-31] VITALS (10 sets, daily range): BP systolic 89–147; BP diastolic 63–81; PULSE 71–90; RESP 16–20; TEMP 36.4–36.7; O2SAT 92–97
[2019-07-31] MEDS: piperacillin-tazobactam 3.375 GM in sodium chloride 0.9% (plus) 50 ML IV ×3 (00:14→17:20)
[2019-07-31] MEDS: heparin 5,000 unit/mL INJ 1 mL 5000 UNIT SUBCUT ×2 (04:53→17:21)
[2019-07-31 06:02] LABS: Basophils % 0.3 %; Eosinophils # 0.1 10^3/uL (0.0-0.8); Eosinophils % 1.2 %; Hematocrit 38.7 % (42.0-52.0); Hemoglobin 12.2 g/dL (11.7-16.6); Lymphocytes # 1.2 10^3/uL (0.8-4.8); Mean Corpuscular HGB Conc 31.5 g/dL (30.0-36.0); Mean Corpuscular Hemoglobin 28.4 pg (28.0-34.0); Mean Corpuscular Volume 90.2 fL (80-94); Mean Platelet Volume 10.2 fL (7.4-10.4); Monocytes # 0.9 10^3/uL (0.2-0.9); Neutrophils # 8.9 10^3/uL (1.8-7.7); Neutrophils % 79.1 %; Nucleated Red Blood Cells % 0 %; Platelet Count 303 10^3/cmm (130-400); Red Blood Count 4.29 10^6/uL (4.1-5.3); Red Cell Distribution Width 13.8 % (12.1-15.1); White Blood Count 11.3 10^3/uL (4.0-10.0)
[2019-07-31 06:22] LABS: Anion Gap 15.1 (5-19); Blood Urea Nitrogen 23 mg/dL (8-23); Calcium 9.5 mg/dL (8.5-10.5); Carbon Dioxide 30 mmol/L (22-29); Chloride 95 mmol/L (98-107); Glomerular Filtration Rate 43.2 mL/min (90-130); Glucose 229 mg/dL (65-115); Osmolality Calculated 286 mOsm/kg (285-295); Potassium 4.1 mmol/L (3.5-5.1); Sodium 136 mmol/L (136-145)
[2019-07-31 06:34] LABS: Glucose Point of Care 261 mg/dL (70-110)
--- NOTE | 2019-07-31 07:43 | P.PN_ITS ---
Subjective Subjective: Interval history: Unfortunately the drain was pulled out yesterday apparently accidentally per shift boss nursing report, as the patient was trying to get out of bed to void and the tubing of the drain got tangled with SCDs and pulled it out. On morning rounds I did see the drain is complete and no retained parts Vitals/I&O/Wt Last Vital Signs Temp 97.6 F 07/31/19 04:00 Pulse 79 07/31/19 04:00 Resp 16 07/31/19 04:00 BP 124/63 07/31/19 04:00 Pulse Ox 94 07/31/19 04:00 07/30/19 07/31/19 07/31/19 22:59 06:59 14:59 Intake Total 530 / 630 30 / 660 Output Total 1080 / 1630 750 / 2380 Balance -550 / -1000 -720 / -1720 Weight last 48 hrs Weight 250 lb 6 oz Weight 249 lb 7 oz Physical Exam Narrative: EXAM NARRATIVE: Patient is conscious alert oriented X3 BMI 44 Right foot shows less edema with minor cellulitic changes that was marked by me Sutures in place and incision is intact the site of the drain was left open without discharge, I elected to pack the wound with Nu Gauze dry to dry bedside followed by Yina Kerlix and Horace wrap. Data : 07/31/19 05:17 07/31/19 05:17 Micro: Microbiology 07/30/19 15:08 Gram Stain - Final Foot - Left 07/30/19 15:08 Gram Stain - Final Bone 07/29/19 15:51 Blood Culture - Preliminary Blood NEGATIVE TO DATE 07/29/19 16:02 Blood Culture - Preliminary Blood NEGATIVE TO DATE A&P Assessment and plan (1) Non-pressure chronic ulcer of other part of right foot with necrosis of bon e: Nonweightbearing right forefoot and application of Darco shoes Physical therapy consultation can help with management of the non-weight bearing part & further evaluating the patient. Packing of the wound with dry to dry once a day using 1 inch Nu Gauze, followed by Yina Kerlix and Horace We will continue antimicrobial therapy and will follow on cultures and sensitiv ities as well as pathology report I appreciate Dr. Burden's input Assurance and more education was given to the patient with regard to the complexity of his wound and local wound care in addition to the non-weight bearing potentials. Patient will require down the road further evaluation for potential re- vascularization per cardiac services as patient does have an KATE of 0.7 on the right lower extremity and a 0.8 on the left lower extremity, for potential better wound healing. Upon discharge patient should follow-up with me at the wound care center this coming Thursday Status: Resolved Code(s): L97.514 - Non-pressure chronic ulcer of other part of right foot with necrosis of bone Attestations Medical Necessity Statement*: Medical necessity care is expected to cross 2 midnights Time Spent in Patient Care: 16 - 35 minutes (>than 50% of time spent in counselling and/or direct pt care on unit) . Coding Level of Care Code Acute Carrot Grader Inspector for Nirmala Patel Diagnoses Non-pressure chronic ulcer of other part of right foot with necrosis of bone L97.514
[2019-07-31] MEDS: ipratropium-albuterol 3 mL Neb INHALATION (09:12)
[2019-07-31] MEDS: metoprolol tartrate 25 mg Tablet PO ×2 (09:42→17:24)
[2019-07-31] MEDS: fluoxetine 20 mg Capsule PO (09:42)
[2019-07-31] MEDS: hydroCHLOROthiazide 25 mg Tablet PO (09:42)
[2019-07-31] MEDS: acetaminophen 325 mg Tablet 650 MG PO ×2 (10:14→17:21)
[2019-07-31 11:40] LABS: Glucose Point of Care 356 mg/dL (70-110)
--- NOTE | 2019-07-31 12:30 | P.PN_ITS ---
Subjective Subjective: Interval history: Cecilio reports he is doing okay. No significant pain. Plans to go home with home health Medications: Reviewed: Yes Vitals/I&O/Wt Last Vital Signs Temp 97.6 F 07/31/19 08:00 Pulse 80 07/31/19 09:17 Resp 18 07/31/19 09:14 BP 113/73 07/31/19 08:00 Pulse Ox 95 07/31/19 09:14 07/30/19 07/31/19 07/31/19 22:59 06:59 14:59 Intake Total 530 / 630 80 / 710 480 / 480 Output Total 1080 / 1630 750 / 2380 450 / 450 Balance -550 / -1000 -670 / -1670 30 / 30 Weight last 48 hrs Weight 113.568 kg Weight 113.143 kg Physical Exam Narrative: EXAM NARRATIVE: General exam is no apparent distress Cardiovascular regular rate and rhythm without murmur, no S3 or S4 Lungs clear no wheezing or crackles Abdomen is soft with positive bowel sounds, obese was deferred Extremities no cyanosis clubbing. No significant edema right lower extremity. Dressing was not removed. Data : 07/31/19 05:17 07/31/19 05:17 Micro: Microbiology 07/30/19 15:08 Gram Stain - Final Foot - Left 07/30/19 15:08 Gram Stain - Final Bone 07/29/19 15:51 Blood Culture - Preliminary Blood NEGATIVE TO DATE 07/29/19 16:02 Blood Culture - Preliminary Blood NEGATIVE TO DATE A&P Assessment and plan (1) Diabetic foot infection: Evidence of diabetic foot ulcer at right great toe amputation site, with exposed bone and surrounding cellulitis. Currently receiving vancomycin and Zosyn Postoperative day #1 status post amputation of the mid metatarsal, and debridem ent X-ray did not show any more extensive cellulitis of any other bones. Sedimentation rate was elevated Possible discharge tomorrow on oral antibiotics, after surgical evaluation, with follow-up with home health, wound care Status: Acute Code(s): E11.628 - Type 2 diabetes mellitus with other skin complications; L08.9 - Local infection of the skin and subcutaneous tissue, unspecified Additional A&P Information Peripheral vascular disease. Consider further work-up as an outpatient and referral to vascular type 2 diabetes. Sliding scale insulin. Depression, continue fluoxetine History of COPD. No evidence of acute exacerbation. Continue nebulized treatments as needed, Symbicort or its equivalent Hypertension, continue meds DVT prophylaxis with heparin Full code Attestations Medical Necessity Statement*: Needs continued hospitalization following surgery for diabetic foot ulcer and exposed bone as well as IV antibiotics for cellulitis Coding Level of Care Code Acute Packaging Mechanic for Nirmala Patel Diagnoses Diabetic foot infection E11.628; L08.9
[2019-07-31 17:13] LABS: Glucose Point of Care 202 mg/dL (70-110)
[2019-07-31 20:47] LABS: Glucose Point of Care 352 mg/dL (70-110)
[2019-07-31 21:28] LABS: Vancomycin Trough 17.7 ug/mL (10-15)
[2019-08-01] VITALS (9 sets, daily range): BP systolic 111–147; BP diastolic 57–78; PULSE 64–85; RESP 16–24; TEMP 36.4–37.1; O2SAT 90–96
[2019-08-01] MEDS: piperacillin-tazobactam 3.375 GM in sodium chloride 0.9% (plus) 50 ML IV ×3 (01:57→16:50)
[2019-08-01 05:50] LABS: Basophils % 0.2 %; Eosinophils # 0.2 10^3/uL (0.0-0.8); Eosinophils % 2.1 %; Hematocrit 34.2 % (42.0-52.0); Lymphocytes # 1.7 10^3/uL (0.8-4.8); Lymphocytes % 16.2 %; Mean Corpuscular HGB Conc 32.2 g/dL (30.0-36.0); Mean Corpuscular Hemoglobin 29.2 pg (28.0-34.0); Mean Corpuscular Volume 90.7 fL (80-94); Mean Platelet Volume 10.1 fL (7.4-10.4); Monocytes % 9.7 %; Neutrophils # 7.4 10^3/uL (1.8-7.7); Neutrophils % 71.4 %; Nucleated Red Blood Cells % 0 %; Platelet Count 273 10^3/cmm (130-400); Red Blood Count 3.77 10^6/uL (4.1-5.3); Red Cell Distribution Width 14.1 % (12.1-15.1); White Blood Count 10.3 10^3/uL (4.0-10.0)
[2019-08-01 06:08] LABS: Anion Gap 17.7 (5-19); Blood Urea Nitrogen 27 mg/dL (8-23); Calcium 9.4 mg/dL (8.5-10.5); Carbon Dioxide 27 mmol/L (22-29); Chloride 94 mmol/L (98-107); Glomerular Filtration Rate 46.5 mL/min (90-130); Glucose 234 mg/dL (65-115); Osmolality Calculated 285 mOsm/kg (285-295); Potassium 3.7 mmol/L (3.5-5.1); Sodium 135 mmol/L (136-145)
[2019-08-01] MEDS: heparin 5,000 unit/mL INJ 1 mL 5000 UNIT SUBCUT ×2 (06:37→17:42)
[2019-08-01 06:38] LABS: Glucose Point of Care 220 mg/dL (70-110)
--- NOTE | 2019-08-01 06:50 | PM.PN ---
Subjective Subjective: Interval history: No acute events overnight except patient's compliant is challenging to keep up his foot in a non weight bearing status. Patient started to have a different shoes for nonweightbearing right forefoot and this helped a lot between yesterday and today. Continues to have uncontrolled hyperglycemia Vitals/I&O/Wt Last Vital Signs Temp 97.7 F 08/01/19 04:00 Pulse 72 08/01/19 04:00 Resp 18 08/01/19 04:00 BP 147/57 08/01/19 04:00 Pulse Ox 91 08/01/19 04:00 07/31/19 07/31/19 08/01/19 14:59 22:59 06:59 Intake Total 750 / 750 670 / 1420 Output Total 450 / 450 1300 / 1750 680 / 2430 Balance 300 / 300 -630 / -330 -680 / -1010 Weight last 48 hrs Weight 250 lb 6 oz Physical Exam Narrative: EXAM NARRATIVE: Patient is conscious alert oriented X3 BMI 44 Right foot shows less edema with minor cellulitic changes that was marked by me Sutures in place and incision is intact apart from the previous site of the drain packing was done by me bedside, allowed by ABDs and Horace wrap. Cellulitis is stable Data : 08/01/19 05:31 08/01/19 05:31 A&P Assessment and plan (1) Non-pressure chronic ulcer of other part of right foot with necrosis of bone: Nonweightbearing right forefoot Continue packing of the wound with dry to dry once a day using 1 inch Nu Gauze, followed by ABDs and Horace wrap. We will continue antimicrobial therapy and will follow on cultures and sensitivities as well as pathology report I appreciate the hospitalist medical management Assurance and more education was given to the patient with regard to the complexity of his wound and local wound care in addition to the non-weight bearing potentials. Patient will require down the road further evaluation for potential re-vascularization per cardiac services as patient does have an KATE of 0.7 on the right lower extremity and a 0.8 on the left lower extremity, for potential better wound healing. Upon discharge patient should follow-up with me at the wound care center this coming Thursday. Dr. Pretty kindly agreed to carry on patient's care starting today Status: Resolved Code(s): L97.514 - Non-pressure chronic ulcer of other part of right foot with necrosis of bone Attestations Medical Necessity Statement*: Medical necessity care is expected to cross 2 midnights Time Spent in Patient Care: 16 - 35 minutes (>than 50% of time spent in counselling and/or direct pt care on unit). Coding Level of Care Code Acute Test And Turn Up Technician for Nirmala Patel Diagnoses Non-pressure chronic ulcer of other part of right foot with necrosis of bone L97.514
[2019-08-01] MEDS: hydroCHLOROthiazide 25 mg Tablet PO (08:35)
[2019-08-01] MEDS: metoprolol tartrate 25 mg Tablet PO ×2 (08:35→17:43)
[2019-08-01] MEDS: fluoxetine 20 mg Capsule PO (08:35)
--- NOTE | 2019-08-01 08:55 | PC.SOCIAL ---
IMM Page 2 of IMM explained to patient. He verbalizes understanding. Initialed, dated, and timed and placed in chart. Copy provided to patient.
--- NOTE | 2019-08-01 14:33 | PM.PN ---
Subjective Subjective: Interval history: No acute overnight events today, feels well, wishes to return home soon. Cx remains pending, with some GNR awaiting speciation and susceptibility. Blood sugar better controlled. Medications: Reviewed: Yes Vitals/I&O/Wt Last Vital Signs Temp 98.6 F 08/01/19 11:57 Pulse 78 08/01/19 11:57 Resp 20 H 08/01/19 11:57 BP 114/76 08/01/19 11:57 Pulse Ox 91 08/01/19 11:57 07/31/19 08/01/19 08/01/19 22:59 06:59 14:59 Intake Total 670 / 1420 50 / 1470 1200 / 1200 Output Total 1300 / 1750 680 / 2430 400 / 400 Balance -630 / -330 -630 / -960 800 / 800 Weight last 48 hrs Weight 113.568 kg Physical Exam Narrative: EXAM NARRATIVE: GEN: Awake, alert and oriented, no acute distress CVS: S1S2 N RS: CTA B/L Abd: Soft, nt/nd , bs+ MARKETING SECRETARY: no focal neuro deficits Data : 08/01/19 05:31 08/01/19 05:31 Micro: Microbiology 07/30/19 15:08 Gram Stain - Final Bone Tissue Culture - Preliminary Gram Negative Rods 07/30/19 15:08 Gram Stain - Final Foot - Left Tissue Culture - Preliminary Gram Negative Rods A&P Assessment and plan (1) Diabetic foot infection: Evidence of diabetic foot ulcer at right great toe amputation site, with exposed bone and surrounding cellulitis.Currently dressing in place, not removed for exam today. Currently receiving vancomycin and Zosyn Postoperative day #2 status post amputation of the mid metatarsal, and debridement Possible discharge tomorrow on oral antibiotics dependent on final results of OR cultures, after surgical evaluation, with follow-up with home health, wound care Status: Acute Additional A&P Information Peripheral vascular disease. Consider further work-up as an outpatient and referral to vascular type 2 diabetes. Sliding scale insulin. Depression, continue fluoxetine History of COPD. No evidence of acute exacerbation. Continue nebulized treatments as needed, Symbicort or its equivalent Hypertension, continue meds DVT prophylaxis with heparin Full code Attestations Medical Necessity Statement*: Awaiting final culture and susceptibility results for transition to oral antibiotics and discharge home. Coding Level of Care Code Acute Computer Forensics Examiner for Chg Fwd Diagnoses Diabetic foot infection E11.628; L08.9
--- NOTE | 2019-08-01 15:30 | PC.RESP ---
Patient given information on Pulmonary Rehab
[2019-08-01 20:49] LABS: Glucose Point of Care 352 mg/dL (70-110)
[2019-08-01 20:49] LABS: Glucose Point of Care 340 mg/dL (70-110)
[2019-08-01 21:51] LABS: Glucose Point of Care 314 mg/dL (70-110)
[2019-08-02] VITALS (9 sets, daily range): BP systolic 109–143; BP diastolic 66–75; PULSE 63–77; RESP 16–24; TEMP 36.4–36.9; O2SAT 91–95
[2019-08-02] MEDS: piperacillin-tazobactam 3.375 GM in sodium chloride 0.9% (plus) 50 ML IV ×3 (00:35→17:38)
[2019-08-02] MEDS: heparin 5,000 unit/mL INJ 1 mL 5000 UNIT SUBCUT ×2 (05:07→17:38)
[2019-08-02 06:27] LABS: Glucose Point of Care 258 mg/dL (70-110)
[2019-08-02] MEDS: ipratropium-albuterol 3 mL Neb INHALATION (08:00)
[2019-08-02] MEDS: fluoxetine 20 mg Capsule PO (08:12)
[2019-08-02] MEDS: metoprolol tartrate 25 mg Tablet PO ×2 (08:13→17:38)
[2019-08-02] MEDS: hydroCHLOROthiazide 25 mg Tablet PO (08:13)
--- NOTE | 2019-08-02 11:17 | PM.PN ---
Subjective Subjective: Interval history: Status post right partial first metatarsal amputation, denies any significant pain fevers chills and drainage has been minimal Vitals/I&O/Wt Last Vital Signs Temp 97.6 F 08/02/19 08:00 Pulse 77 08/02/19 08:00 Resp 16 08/02/19 08:00 BP 109/72 08/02/19 08:00 Pulse Ox 93 08/02/19 08:00 08/01/19 08/02/19 08/02/19 22:59 06:59 14:59 Intake Total 170 / 1470 50 / 1470 Output Total 1200 / 1900 300 / 1900 250 / 250 Balance -1030 / -430 -250 / -430 -250 / -250 Physical Exam Narrative: EXAM NARRATIVE: Right foot: Incision healing well, erythema is improved though he still has significant erythema around the incision Data : 08/01/19 05:31 08/01/19 05:31 Micro: Microbiology 07/30/19 15:08 Gram Stain - Final Bone Tissue Culture - Preliminary Pseudomonas aeruginosa 07/30/19 15:08 Gram Stain - Final Foot - Left Tissue Culture - Preliminary Pseudomonas aeruginosa 07/30/19 15:08 Anaerobic Culture - Preliminary Tissue 07/30/19 15:08 Anaerobic Culture - Preliminary Foot - Left A&P Assessment and plan (1) Status post amputation of great toe: Status post first metatarsal partial amputation, clinically appears to be doing well, erythema is improved Status: Acute Qualifiers: Laterality: right Qualified Code(s): Z89.411 - Acquired absence of right great toe Attestations Medical Necessity Statement*: Status post right first metatarsal amputation doing well Patient has been afebrile and hemodynamically stable He still has some erythema and therefore I would recommend continuing the IV antibiotics for 24 hours more as an inpatient, will reassess tomorrow as to whether he is ready to be discharged to [facility] Coding Level of Care Code Acute Director Adult for Nirmala Patel Diagnoses Status post amputation of great toe Z89.411 Laterality: right
[2019-08-02 12:01] LABS: Glucose Point of Care 313 mg/dL (70-110)
[2019-08-02 16:42] LABS: Glucose Point of Care 312 mg/dL (70-110)
--- NOTE | 2019-08-02 17:12 | P.PN_ITS ---
Subjective Subjective: Interval history: no new complaints today, feels well, wishes to be discharged Medications: Reviewed: Yes Vitals/I&O/Wt Last Vital Signs Temp 97.7 F 08/02/19 15:41 Pulse 74 08/02/19 15:41 Resp 16 08/02/19 15:41 BP 137/66 08/02/19 15:41 Pulse Ox 95 08/02/19 15:41 08/02/19 08/02/19 08/02/19 06:59 14:59 22:59 Intake Total 50 / 1470 Output Total 300 / 1900 600 / 600 425 / 1025 Balance -250 / -430 -600 / -600 -425 / -1025 Physical Exam Narrative: EXAM NARRATIVE: GEN: Awake, alert and oriented, no acute distress CVS: S1S2 N RS: CTA B/L Abd: Soft, nt/nd , bs+ CLERICAL ADJUDICATOR: no focal motor neuro deficits Data : 08/04/19 10:30 08/04/19 10:30 Micro: Microbiology 07/30/19 15:08 Gram Stain - Final Bone Tissue Culture - Preliminary Pseudomonas aeruginosa 07/30/19 15:08 Gram Stain - Final Foot - Left Tissue Culture - Preliminary Pseudomonas aeruginosa 07/30/19 15:08 Anaerobic Culture - Preliminary Tissue 07/30/19 15:08 Anaerobic Culture - Preliminary Foot - Left A&P Assessment and plan (1) Status post amputation of great toe: Status: Acute Qualifiers: Laterality: right Qualified Code(s): Z89.411 - Acquired absence of right great toe (2) Non-pressure chronic ulcer of other part of right foot with necrosis of bone: Status: Resolved (3) Diabetic foot infection: Evidence of diabetic foot ulcer at right great toe amputation site, with exposed bone and surrounding cellulitis.Currently dressing in place, not removed for exam today. Currently receiving vancomycin and Zosyn Postoperative day #3 status post amputation of the mid metatarsal, and debridement Possible discharge tomorrow, awaitin final culture results to decide regarding continuation of iv rx vs switch to po antibiotics Status: Acute (4) COPD (chronic obstructive pulmonary disease): Status: Acute Additional A&P Information DVT prophylaxis with heparin Full code Attestations Medical Necessity Statement*: awaiting final culture and sensitivity results to ascertain iv vs po antibiotics and suration of rx. pseudomonas isolates returning with variable susceptibilities Coding Level of Care Code Acute Perpetual Inventory Clerk for Nirmala Patel Diagnoses Status post amputation of great toe Z89.411 Laterality: right Non-pressure chronic ulcer of other part of right foot with necrosis of bone L97.514 Diabetic foot infection E11.628; L08.9 COPD (chronic obstructive pulmonary disease) J44.9
[2019-08-02 21:00] LABS: Glucose Point of Care 400 mg/dL (70-110)
[2019-08-03] VITALS (8 sets, daily range): BP systolic 108–134; BP diastolic 56–80; PULSE 61–82; RESP 17–20; TEMP 36.4–37; O2SAT 92–95
[2019-08-03] MEDS: piperacillin-tazobactam 3.375 GM in sodium chloride 0.9% (plus) 50 ML IV ×3 (01:30→17:15)
[2019-08-03] MEDS: heparin 5,000 unit/mL INJ 1 mL 5000 UNIT SUBCUT ×2 (05:26→17:15)
[2019-08-03 06:18] LABS: Glucose Point of Care 265 mg/dL (70-110)
[2019-08-03] MEDS: ipratropium-albuterol 3 mL Neb INHALATION (07:35)
[2019-08-03] MEDS: hydroCHLOROthiazide 25 mg Tablet PO (08:01)
[2019-08-03] MEDS: fluoxetine 20 mg Capsule PO (08:01)
[2019-08-03] MEDS: metoprolol tartrate 25 mg Tablet PO ×2 (08:01→17:15)
--- NOTE | 2019-08-03 08:54 | P.PN_ITS ---
Subjective Subjective: Interval history: Patient has been doing well, denies any pain fevers or chills. Redness on his foot is improved Vitals/I&O/Wt Last Vital Signs Temp 98.1 F 08/03/19 07:47 Pulse 72 08/03/19 07:47 Resp 18 08/03/19 07:47 BP 108/62 08/03/19 07:47 Pulse Ox 95 08/03/19 07:47 08/02/19 08/03/19 08/03/19 22:59 06:59 14:59 Intake Total 290 / 390 50 / 390 Output Total 875 / 1775 300 / 1775 200 / 200 Balance -585 / -1385 -250 / -1385 -200 / -200 Physical Exam Narrative: EXAM NARRATIVE: Right foot first metatarsal amputation: wound has no significant necrotic tissue, erythema is significantly improved. Wound is being packed Data : 08/01/19 05:31 08/01/19 05:31 Micro: Microbiology 07/30/19 15:08 Gram Stain - Final Bone Tissue Culture - Preliminary Pseudomonas aeruginosa 07/30/19 15:08 Gram Stain - Final Foot - Left Tissue Culture - Preliminary Pseudomonas aeruginosa 07/30/19 15:08 Anaerobic Culture - Preliminary Tissue 07/30/19 15:08 Anaerobic Culture - Preliminary Foot - Left A&P Assessment and plan (1) Status post amputation of great toe: Followed by first metatarsal amputation right foot doing well Microbiology showed Pseudomonas Patient revealed to go back to residential today and continue with daily dressing change and packing with quarter inch ribbon gauze Status: Acute Qualifiers: Laterality: right Qualified Code(s): Z89.411 - Acquired absence of right great toe Attestations Medical Necessity Statement*: DC to residential today Coding Level of Care Code Acute Material Planner for Nirmala Fwkhalida Diagnoses Status post amputation of great toe Z89.411 Laterality: right
--- NOTE | 2019-08-03 09:04 | PC.SOCIAL ---
IMM Updated Updated pt on Pg 2 IMM via phone d/t taking precautions b/c of COVID . No questions voiced. Signed, dated, & timed, copy in chart.
[2019-08-03 11:15] LABS: Glucose Point of Care 399 mg/dL (70-110)
--- NOTE | 2019-08-03 14:24 | PM.PN ---
Subjective Subjective: Interval history: Patient remains hemodynamically stable. No acute events overnight. Complains of mild pain number surgical site Medications: Reviewed: Yes Vitals/I&O/Wt Last Vital Signs Temp 97.6 F 08/03/19 11:40 Pulse 82 08/03/19 11:40 Resp 18 08/03/19 11:40 BP 133/62 08/03/19 11:40 Pulse Ox 92 08/03/19 11:40 08/02/19 08/03/19 08/03/19 22:59 06:59 14:59 Intake Total 290 / 340 50 / 390 360 / 360 Output Total 875 / 1475 300 / 1775 500 / 500 Balance -585 / -1135 -250 / -1385 -140 / -140 Physical Exam Narrative: EXAM NARRATIVE: GEN: Awake, alert and oriented, no acute distress CVS: S1S2 N RS: CTA B/L Abd: Soft, nt/nd , bs+ BEAN SPROUT LABORER: no focal motor neuro deficits Data : 08/04/19 10:30 08/04/19 10:30 Micro: Microbiology 07/30/19 15:08 Anaerobic Culture - Preliminary Foot - Left 07/30/19 15:08 Anaerobic Culture - Preliminary Tissue 07/30/19 15:08 Gram Stain - Final Foot - Left Tissue Culture - Final Pseudomonas aeruginosa 07/30/19 15:08 Gram Stain - Final Bone Tissue Culture - Final Pseudomonas aeruginosa A&P Assessment and plan (1) Status post amputation of great toe: Status: Acute Qualifiers: Laterality: right Qualified Code(s): Z89.411 - Acquired absence of right great toe (2) Non-pressure chronic ulcer of other part of right foot with necrosis of bone: Status: Resolved (3) Diabetic foot infection: Status: Acute (4) COPD (chronic obstructive pulmonary disease): Status: Acute Additional A&P Information 68M with recent amputation of R foot admitted for wound dehiscence and cellulitis s/p removal of first metatarsal head. Final path pending Cx from OR showing variable susceptibilities of Psuedomonas auerginosa. Prior OR cx with MSSA. Will likely switch to imipenem to cover both Pseudomonas and MSSA once final cx results available. Duration of rx to be dependent on path report regarding surgical margins, at a minimum for 2 weeks will obtain PICC line tomorrow to facilitate above DVT prophylaxis with heparin Full code Attestations Medical Necessity Statement*: Slowly recovering infection over foot, for PICC placement tomorrow Coding Level of Care Code Acute Indirect Sales Exec for Chg Fwd Diagnoses Status post amputation of great toe Z89.411 Laterality: right Non-pressure chronic ulcer of other part of right foot with necrosis of bone L97.514 Diabetic foot infection E11.628; L08.9 COPD (chronic obstructive pulmonary disease) J44.9
[2019-08-03 16:33] LABS: Glucose Point of Care 312 mg/dL (70-110)
[2019-08-03 20:54] LABS: Glucose Point of Care 358 mg/dL (70-110)
[2019-08-04] VITALS (8 sets, daily range): BP systolic 109–158; BP diastolic 64–84; PULSE 66–95; RESP 17–18; TEMP 36.4–36.9; O2SAT 90–97
[2019-08-04] MEDS: piperacillin-tazobactam 3.375 GM in sodium chloride 0.9% (plus) 50 ML IV (00:40)
[2019-08-04] MEDS: heparin 5,000 unit/mL INJ 1 mL 5000 UNIT SUBCUT (05:14)
[2019-08-04 06:25] LABS: Glucose Point of Care 273 mg/dL (70-110)
[2019-08-04] MEDS: metoprolol tartrate 25 mg Tablet PO (08:07)
[2019-08-04] MEDS: hydroCHLOROthiazide 25 mg Tablet PO (08:07)
[2019-08-04] MEDS: fluoxetine 20 mg Capsule PO (08:07)
--- NOTE | 2019-08-04 09:06 | P.PN_ITS ---
Subjective Subjective: Interval history: Patient is awaiting PICC line placement, has been afebrile. Vitals/I&O/Wt Last Vital Signs Temp 97.5 F L 08/04/19 07:56 Pulse 74 08/04/19 07:56 Resp 18 08/04/19 07:56 BP 158/70 08/04/19 07:56 Pulse Ox 96 08/04/19 07:56 08/03/19 08/04/19 08/04/19 22:59 06:59 14:59 Intake Total 270 / 680 Output Total 1000 / 1725 225 / 1725 Balance -730 / -1045 -225 / -1045 Physical Exam Narrative: EXAM NARRATIVE: Right foot: Erythema is improved but wound with some necrotic tissue which I debrided at the bedside using scissors Data : 08/01/19 05:31 08/01/19 05:31 Micro: Microbiology 07/29/19 15:51 Blood Culture - Final Blood NO GROWTH AFTER 5 DAYS 07/29/19 16:02 Blood Culture - Final Blood NO GROWTH AFTER 5 DAYS 07/30/19 15:08 Anaerobic Culture - Preliminary Foot - Left 07/30/19 15:08 Anaerobic Culture - Preliminary Tissue 07/30/19 15:08 Gram Stain - Final Foot - Left Tissue Culture - Final Pseudomonas aeruginosa 07/30/19 15:08 Gram Stain - Final Bone Tissue Culture - Final Pseudomonas aeruginosa A&P Assessment and plan (1) Status post amputation of great toe: 68-year-old gentleman with peripheral vascular disease who had undergone first metatarsal amputation, wound debrided at the bedside Pack wound twice a day with wet-to-dry dressings Patient should be okay to go to [facility] once we have a PICC line in place and follow-up with wound care Status: Acute Qualifiers: Laterality: right Qualified Code(s): Z89.411 - Acquired absence of right great toe Attestations 2 Medical Necessity Statement*: Status post first metatarsal amputation awaiting PICC line placement for IV antibiotics Coding Level of Care Code Acute Examination Grader for Lebrong Fwd Diagnoses Status post amputation of great toe Z89.411 Laterality: right
[2019-08-04] MEDS: ipratropium-albuterol 3 mL Neb INHALATION (09:19)
[2019-08-04 10:38] LABS: Basophils % 0.3 %; Eosinophils # 0.3 10^3/uL (0.0-0.8); Eosinophils % 3.1 %; Hematocrit 38.5 % (42.0-52.0); Hemoglobin 12.1 g/dL (11.7-16.6); Lymphocytes # 1.5 10^3/uL (0.8-4.8); Mean Corpuscular HGB Conc 31.4 g/dL (30.0-36.0); Mean Corpuscular Hemoglobin 28.5 pg (28.0-34.0); Mean Corpuscular Volume 90.6 fL (80-94); Mean Platelet Volume 9.9 fL (7.4-10.4); Monocytes # 0.7 10^3/uL (0.2-0.9); Monocytes % 6.5 %; Neutrophils # 7.4 10^3/uL (1.8-7.7); Neutrophils % 74.7 %; Nucleated Red Blood Cells % 0 %; Platelet Count 339 10^3/cmm (130-400); Red Blood Count 4.25 10^6/uL (4.1-5.3); Red Cell Distribution Width 14.2 % (12.1-15.1)
[2019-08-04 10:53] LABS: Alanine Aminotransferase 19 U/L (0-41); Albumin Level 3.3 g/dL (3.5-5.2); Alkaline Phosphatase 92 IU/L (40-130); Anion Gap 16.2 (5-19); Aspartate Amino Transferase 20 U/L (0-40); Blood Urea Nitrogen 29 mg/dL (8-23); Calcium 9.7 mg/dL (8.5-10.5); Carbon Dioxide 28 mmol/L (22-29); Chloride 95 mmol/L (98-107); Globulin 5.5 g/dL (1.3-4.6); Glomerular Filtration Rate 33.4 mL/min (90-130); Glucose 325 mg/dL (65-115); Osmolality Calculated 290 mOsm/kg (285-295); Potassium 4.2 mmol/L (3.5-5.1); Sodium 135 mmol/L (136-145); Total Bilirubin 0.2 mg/dL (0.15-1.2); Total Protein 8.8 g/dL (6.6-8.7)
[2019-08-04] MEDS: nystatin powder 15 gm Btl 1 APPLIC TOPICAL (10:57)
--- NOTE | 2019-08-04 10:59 | PC.NURSE ---
Rounding Patient is sitting at side of bed. I have educated patient to stay off of the affected Right foot (with Surgical Wound). He states he has to stand to urinate. I placed his darco boot to help off set the weight of that foot and encourage him to keep foot elevated in bed except to urinate. He has had 1 episode at shift change of incontinent stool which was loose and brown in color. Dr. Pretty notified and ordered CDIFF testing. Dressing orders are BID irrigate wound with ns and pack with WET gauze and place ABD pad and Cover with Kerlex. Dressing changed at 0820. Orders are in by Dr. Pretty. During assessment a rash was noted to debra area with pustles and erythema. Order for nystating powder. Cleaned area and applied Nystatin Powder. Will continue to monitor. RUDY MACIAS
[2019-08-04 11:35] LABS: Glucose Point of Care 389 mg/dL (70-110)
[2019-08-04 11:47] LABS: Erythrocyte Sedimentation Rate 101 mm/hr (0-10)
--- NOTE | 2019-08-04 13:17 | SUR.PREOP ---
Time out for PICC Line Insertion Completed.
--- NOTE | 2019-08-04 13:18 | XR_ITS ---
WS: [id number] PORTABLE CHEST HISTORY: PICC LINE INSERTION COMPARISON: 12/17/2016 RIGHT PICC line in good position tip terminating in the distal SVC. Mild pulmonary venous congestion. No pleural effusion or pneumothorax. Cardiac size: Normal. Mediastinum/Aorta: Mild atherosclerosis aorta. No osseous abnormality seen. XR/XR chest 1V portable [id number] IMPRESSION: Satisfactory placement right-sided PICC line. Mild CHF.
--- NOTE | 2019-08-04 14:47 | P.DS_ITS ---
Discharge Providers Date of Admission: 07/29/19 15:22 Date of Discharge: August 04, 2019 Attending Provider at Admission: Hugo Burden MD Attending Provider at Discharge: Inés Howard MD Diagnoses at Discharge Discharge Diagnosis (1) Status post amputation of great toe: Status: Acute Qualifiers: Laterality: right Qualified Code(s): Z89.411 - Acquired absence of right great toe Reason for Visit Reason for Visit: Reason For Visit: CLLULITIS RIGHT LEG Hospital Course Discharge Summary: 68 years old gentleman with history of complicated right foot diabetic foot infection with exposed first metatarsal bone, currently is a skilled nursing resident and he did undergo uneventful amputation of the right big toe few weeks ago that eventually got complicated and had dehiscence of the wound that ended up by having a bone exposure. He was seen at the wound care center and the decision was made after discussing with the patient to admit to the hospital for surgical exploration of the wound with the plan to amputate the first metatarsal bone, which he underwent on 07/30/19. All cultures from the state returned with the growth of pseudomonas aeruginosa with MDR susceptibilities. There appeared to be 2 different isolates with varying susceptibility. Patient was initially on treatment with Zosyn empirically, however with recovery of this result he was transferred over to imipenem. Previous cultures from the last surgery had shown growth of staph aureus which is an MSSA, appropriately covered with imipenem. Additional vancomycin was not added as the isolate is MSSA and not MRSA. Imaging of the foot on July 28 did not show any signs of bony destruction or osteomyelitis. Per the path report obtained and finalized today, there is evidence of acute and chronic osteom yelitis. Per discussion with the pathologist the margins do appear to be affected as well. Overall post debridement her foot has continued to improve however cellulitis is still persisting. At this present time the plan is to discharge with 2 weeks of appropriate antimicrobial agents. At the end of 2 weeks, it will need to be reassessed if these IV antibiotics need to be continued. ESR and CRP has been ordered for weekly labs to trend. If the ESR is improving remarkably over the next 2 weeks, it is less likely to represent osteomyelitis in which case 2 to 3 weeks of therapy would suffice for skin and soft tissue infection. If however there is persistent concern for osteomyelitis he may need a higher level amputation versus longer course of antibiotics. Patient will follow-up in wound care clinic with Dr. Dan in about a week. Physical Exam Narrative: EXAM NARRATIVE: GEN: Awake, alert and oriented, no acute distress CVS: S1S2 N RS: CTA B/L Abd: Soft, nt/nd , bs+ ELECTRICIAN SECOND: no focal neuro deficits Discharge Data Data Completed and Pending: Completed Studies During Hospitalization Category Date Time Status CXRP [XR chest 1V portable [id number]] R outine Exams 08/04/19 13:18 Completed XR foot RT 2V 736 20 Routine Exams 07/29/19 16:04 Completed Pathology: Surgic al [PTH] Routine Pth 07/30/19 16:12 Completed Pending at discharge Category Date Time Status Anaerobic Culture Routine Lab 07/30/19 15:08 Results Anaerobic Culture Routine Lab 07/30/19 15:08 Results Clostridium Diffi cile BY PCR Routin e Lab 08/04/19 08:25 Received Labs from last 24 hours 08/04/19 08/04/19 08/04/19 11:13 10:30 10:30 WBC RBC Hgb Hct MCV MCH MCHC RDW Plt Count MPV Neut % (Auto) Lymph % (Auto) [place] % (Auto) Eos % (Auto) Baso % (Auto) Neut # (Auto) Lymph # (Auto) [place] # (Auto) Eos # (Auto) Baso # (Auto) Nucleated RBC % (a uto) Nucleated RBCs # ESR 101 H Sodium 135 L Potassium 4.2 Chloride 95 L Carbon Dioxide 28 Anion Gap 16.2 BUN 29 H Creatinine 2.0 H GFR Calculation 33.4 L Glucose 325 H POC Glucose 389 Calculated Osmolal ity 290 Calcium 9.7 Total Bilirubin 0.2 AST 20 ALT 19 Alkaline Phosphata se 92 Total Protein 8.8 H Albumin 3.3 L Globulin 5.5 H 08/04/19 08/04/19 08/03/19 10:30 06:21 20:50 WBC 10.0 RBC 4.25 Hgb 12.1 Hct 38.5 L MCV 90.6 MCH 28.5 MCHC 31.4 RDW 14.2 Plt Count 339 MPV 9.9 Neut % (Auto) 74.7 Lymph % (Auto) 15.0 [place] % (Auto) 6.5 Eos % (Auto) 3.1 Baso % (Auto) 0.3 Neut # (Auto) 7.4 Lymph # (Auto) 1.5 [place] # (Auto) 0.7 Eos # (Auto) 0.3 Baso # (Auto) 0.0 Nucleated RBC % (a uto) 0 Nucleated RBCs # 0.0 ESR Sodium Potassium Chloride Carbon Dioxide Anion Gap BUN Creatinine GFR Calculation Glucose POC Glucose 273 358 Calculated Osmolal ity Calcium Total Bilirubin AST ALT Alkaline Phosphata se Total Protein Albumin Globulin 08/03/19 16:30 WBC RBC Hgb Hct MCV MCH MCHC RDW Plt Count MPV Neut % (Auto) Lymph % (Auto) [place] % (Auto) Eos % (Auto) Baso % (Auto) Neut # (Auto) Lymph # (Auto) [place] # (Auto) Eos # (Auto) Baso # (Auto) Nucleated RBC % (a uto) Nucleated RBCs # ESR Sodium Potassium Chloride Carbon Dioxide Anion Gap BUN Creatinine GFR Calculation Glucose POC Glucose 312 Calculated Osmolal ity Calcium Total Bilirubin AST ALT Alkaline Phosphata se Total Protein Albumin Globulin Vitals: Last Vital Signs Temp 97.5 F L 08/04/19 11:28 Pulse 68 08/04/19 11:28 Resp 18 08/04/19 11:28 BP 142/70 08/04/19 11:28 Pulse Ox 96 08/04/19 11:28 Discharge Plan Discharge Patient Disposition: er SNF Condition: Stable Prescriptions: New imipenem-cilastatin 250 mg recon soln 500 mg IVP Q6H 10 Days Qty: 10 RF: 0 acetaminophen 325 mg Tablet 650 mg PO Q6H PRN (Reason: Mild/Mod Pain Or Temp >/= 101) Qty: 0 RF: 0 Continued metoprolol tartrate 25 mg tablet 25 mg PO BID 90 Days Qty: 180 RF: 3 metformin 1,000 mg tablet 1,000 mg PO BID Qty: 60 RF: 3 hydrochlorothiazide 25 mg tablet 25 mg PO DAILY Qty: 90 RF: 3 glimepiride 4 mg tablet 4 mg PO BID RF: 0 ergocalciferol (vitamin D2) [Vitamin D2] 50,000 unit Capsule See Rx Instructions .ROUTE .COMPLEX RF: 0 albuterol sulfate [Ventolin HFA] 90 mcg/actuation HFA aerosol inhaler 1 puff INHALATION QID PRN (Reason: Shortness Of Breath) RF: 0 fluoxetine 20 mg capsule 20 mg PO DAILY RF: 0 dicyclomine 10 mg capsule 10 mg PO TID RF: 0 levalbuterol tartrate [Xopenex HFA] 45 mcg/actuation HFA aerosol inhaler 2 puff INHALATION QID RF: 0 Symbicort 160-4.5 mcg/actuation HFA aerosol inhaler 2 puff INHALATION BID RF: 0 Invokana 300 mg tablet 300 mg PO DAILY RF: 0 Discontinued amoxicillin-pot clavulanate [Augmentin] 875-125 mg tablet 1 tab PO BID Qty: 14 RF: 0 Discharge Orders: Discharge Order (Routine); Ordered 08/04/19 Ordered By: Inés Howard [facility] [Outside] Pancho Smith MD [Physician] - 08/12/19 8:30 am (wound care clinic ) Discharge Diet: Usual diet Discharge Activity: Resume usual activity Patient Instructions: Imipenem/Cilastatin (Injection), Acute Wound Care (GEN) Activity Restrictions/Additional Instructions: Irrigate wound with saline and packed with quarter inch plain ribbon gauze once daily and cover with Telfa and Kerlix gauze. Follow-up with Dr. Smith in 1 week check CBC/CMP and ESR once a week and send results to Dr. Smith office Discharge Date/Time: 08/04/19 16:05 Discharge Attestations Time Spent in Discharge Care*: greater than 30 min Quality Metrics Clinical Quality Measures During this hospital stay, did patient experience: None Coding Level of Care Code Acute Brushing Operator for Lebrong Fwd Diagnoses Status post amputation of great toe Z89.411 Laterality: right
--- NOTE | 2019-08-04 15:26 | PC.NURSE ---
DISCHARGE - report called to Gunnar at [facility]. PICC Line in place and IV removed. GILBERTO, RUDY
== END 2019-08-04 16:05 | disposition skilled nursing facility (03) | DRG 256 ==
PROVIDERS: Surgery; Admitting Provider Internal Medicine; Family Provider Internal Medicine; Visit Provider Student in an Organized Health Care Education/Training Program
PROC: 0Y6P0Z2 Detachment at Right 1st Toe, Mid, Open Approach (ICD-10-PCS; principal; 2019-07-30 10:00)
DX: E11.51 Type 2 diabetes mellitus with diabetic peripheral angiopathy without gangrene (principal); M86.171 Other acute osteomyelitis, right ankle and foot; L03.115 Cellulitis of right lower limb; E11.628 Type 2 diabetes mellitus with other skin complications; J44.9 Chronic obstructive pulmonary disease, unspecified; I10 Essential (primary) hypertension; B96.5 Pseudomonas (aeruginosa) (mallei) (pseudomallei) as the cause of diseases classified elsewhere; Z79.84 Long term (current) use of oral hypoglycemic drugs; F32.9 Major depressive disorder, single episode, unspecified; Z87.891 Personal history of nicotine dependence
CPT/HCPCS: 11044; 11047; 12345; 36415; 36416; 36569; 71045; 73620; 80048; 80053; 80202; 82962; 85025; 85651; 86140; 87040; 87070; 87075; 87077; 87176; 87186; 87205; 87493; 88304; 88305; 93005; 94640; 96372; 97116; 97161; J0690; J0743; J1644; J1815; J2001; J2250; J2543; J2704; J3010; J3370; J7030; J7050; L3260

== ENCOUNTER 2019-08-19 08:18 | Outpatient (RCR) | payer MEDICARE, MEDICAID, SELFPAY | END 2019-08-19 09:00 | disposition home or self-care (01) | LOC: WOUND 08:18 | PROVIDERS: Family Provider Internal Medicine; Visit Provider Surgery | DX: E11.621 Type 2 diabetes mellitus with foot ulcer (principal); L97.513 Non-pressure chronic ulcer of other part of right foot with necrosis of muscle | CPT/HCPCS: 11043; 11044; 11047; 87070; 87075; 87205 ==

== ENCOUNTER 2019-08-19 10:09 | Inpatient (IN) | payer MEDICARE, MEDICAID, SELFPAY ==
[2019-08-19] VITALS (9 sets, daily range): BP systolic 112–130; BP diastolic 56–77; PULSE 63–87; RESP 17–19; TEMP 36.4–36.7; O2SAT 92–99; BMI 47.8
--- NOTE | 2019-08-19 10:23 | XR_ITS ---
WS: [id number] PORTABLE CHEST HISTORY: dyspnea/cough COMPARISON: 08/04/2019 Lungs are clear and well expanded. No pleural effusion or pneumothorax. Cardiac size: Normal. Mediastinum/Aorta: Mild atherosclerosis aorta. No osseous abnormality seen. XR/XR chest 1V portable [id number] IMPRESSION: Unremarkable portable chest.
--- NOTE | 2019-08-19 10:23 | ECG_ITS ---
Measurements Intervals [place] Rate: 71 P: 58 OR: 204 QRS: -22 QRSD: 97 T: 34 QT: 359 QTc: 390 SINUS RHYTHM BORDERLINE LEFT AXIS DEVIATION [QRS AXIS < -20] INTERPRETATION BASED ON A DEFAULT AGE OF 40 YEARS Compared to ECG 07/30/2019 11:10:40 Intraventricular conduction delay no longer present Electronically Signed On 08-19-2019 18:25:09 CDT by Amparo Delong M.D. [email or web address]
--- NOTE | 2019-08-19 10:33 | ED_ITS ---
HPI - Skin/Abscess/Foreign Bdy General: Chief complaint: Skin/Abscess/Foreign Body Stated complaint: RIGHT ARM, RIGHT FOOT PAIN Time Seen by Provider: 08/19/19 10:12 History of Present Illness: HPI narrative: 68-year-old male presents emergency room via the wound clinic. He was seen this morning there is redness and erythema in his right arm. He has a PICC line in place this was removed and bandages over the entrance wound at this point. The outline of the redness is marked. He also has a dehisced wound on his foot that was debrided this morning. Dr. Smith wanted him to be admitted because of concern for sepsis due to infected line. He denies any recent fever sweats or chills or breathing difficulty. complaint: other (Infected PICC line) Onset (ago): day(s) Location: RUE Severity: mild Context: recent antibiotic (Is receiving antibiotics for a right foot ulcer through the PICC line which appears to be infected now) Associated symptoms: Deny chills, fever(s), nausea or vomiting Review of Systems Const: Denies: fever, chills, body aches, change in appetite, fatigue or malaise ENMT: Denies: throat pain, ear pain, nasal discharge or nasal congestion Card: Denies: chest pain, edema, shortness of breath on exertion or shortness of breath when lying down Resp: Denies: shortness of breath, productive cough or non-productive cough GI: Denies: abdominal pain, nausea, vomiting, vomiting blood, coffee grounds in vomit, diarrhea, constipation, bloating, blood in stool or black tarry stool : Denies: flank pain, painful urination, urinary frequency or urinary urgency Skin/Breast: Denies: rash or itching PFSH ED PFSH: Medical History CKD (chronic kidney disease), stage III COPD (chronic obstructive pulmonary disease) Depression Diabetes HTN (hypertension) Smoking addiction Surgical History No history of previous surgery Status post amputation of great toe Family History Other Healthy adult Social History Smoking and tobacco status: former smoker Alcohol intake: never Lives independently: Yes Household members: none Marital status: Single Current occupational status: retired Physical Exam Const: COMMON NORMALS: no apparent distress GENERAL APPEARANCE: cooperative and comfortable ORIENTATION/CONSCIOUSNESS: Yes awake, Yes oriented to person, Yes oriented to place and Yes oriented to time HENMT: COMMON NORMALS: normocephalic, head/scalp atraumatic, hearing grossly normal bilaterally, external ears normal, EAC's normal, TM's normal bilaterally, nasal mucous membranes and turbinates normal, moist oral mucous membranes and oropharynx normal HEAD & SCALP: normocephalic and atraumatic NOSE: nasal mucous membranes and turbinates normal EXTERNAL EAR: Yes external ears normal EXTERNAL AUDITORY CANAL: EAC's normal TYMPANIC MEMBRANE: TM's normal bilaterally Eye: COMMON NORMALS: PERRL, EOMs intact bilaterally, conjunctivae normal and no scleral icterus CONJUNCTIVA: Yes conjunctivae normal PUPIL: Yes PERRL Neck/C-Spine: COMMON NORMALS: full ROM, no lymphadenopathy, supple and no JVD Lymph: LYMPHATIC: no lymphadenopathy noted and no lymphedema noted Resp: COMMON NORMALS: normal respiratory effort, no retractions, no use of accessory muscles and clear to auscultation bilaterally AUSCULTATION: clear to auscultation bilaterally Cardio: COMMON NORMALS: no JVD, regular rate, regular rhythm and no murmurs RATE: regular rate RHYTHM: regular rhythm GI: COMMON NORMALS: soft to palpation and no hepatosplenomegaly AUSCULTATION: Yes normoactive bowel sounds PALPATION: Yes soft, No tender, No guarding and Yes no hepatosplenomegaly Extremity: NARRATIVE EXTREMITY EXAM: Right foot wound bandaged from previous amputations bandages were not removed in the emergency room because patient had just been seen by Dr. Harrison in the clinic. There is redness and erythema on the ventral surface of the right forearm with the mid bicep there is a bandage in place from where the PICC line was inserted and had been removed earlier today. There is no fluctuant abscess no significant induration. Neuro: SENSORIUM/ORIENTATION: Yes oriented to person, Yes oriented to place and Yes oriented to time Skin: COMMON NORMALS: no rashes or lesions noted GENERAL SKIN EXAM: no rashes or lesions noted Course Vital Signs: Vital signs: Vital Signs Temperature 97.8 F 08/20/19 07:43 Pulse Rate 63 08/20/19 09:18 Respiratory Rate 16 08/20/19 09:18 Blood Pressure 112/52 08/20/19 07:43 Pulse Oximetry 96 08/20/19 09:18 MDM - Skin/Abscess/Foreign Bdy MDM Narrative: Medical decision making narrative: Patient was sent here from the wound clinic for admission. Venous duplex of the upper extremity does not show any DVT but he does have a superficial venous thrombosis associated with the PICC line. PICC line is Angelo been removed he will need IV antibiotics continue to for the cellulitis he currently has as well as the diabetic foot ulcer. Additionally he supposed to be seeing Dr. Pretty for surgical debridement of the foot Dr. Smith had attempted to do some work-up in the clinic but they found they are not able to get it debrided as well as needed. Lab Data: Labs: Lab Results 08/19/19 08/19/19 Range/Units 10:35 10:35 WBC 11.5 H (4.0-10.0) 10^3/ uL RBC 4.52 (4.1-5.3) 10^6/u L Hgb 12.6 (11.7-16.6) g/dL Hct 42.0 (42.0-52.0) % MCV 92.9 (80-94) fL MCH 27.9 L (28.0-34.0) pg MCHC 30.0 (30.0-36.0) g/dL RDW 14.8 (12.1-15.1) % Plt Count 380 (130-400) 10^3/c mm MPV 9.8 (7.4-10.4) fL Neut % (Auto) 75.5 % Lymph % (Auto) 14.7 % [place] % (Auto) 6.1 % Eos % (Auto) 3.1 % Baso % (Auto) 0.3 % Neut # (Auto) 8.7 H (1.8-7.7) 10^3/u L Lymph # (Auto) 1.7 (0.8-4.8) 10^3/u L [place] # (Auto) 0.7 (0.2-0.9) 10^3/u L Eos # (Auto) 0.4 (0.0-0.8) 10^3/u L Baso # (Auto) 0.0 (0.0-0.1) 10^3/u L Nucleated RBC % (a uto) 0 % Nucleated RBCs # 0.0 /100WBC Sodium 138 (136-145) mmol/L Potassium 4.7 (3.5-5.1) mmol/L Chloride 96 L (98-107) mmol/L Carbon Dioxide 28 (22-29) mmol/L Anion Gap 18.7 (5-19) BUN 30 H (8-23) mg/dL Creatinine 1.5 H (0.7-1.2) mg/dL GFR Calculation 46.5 L (90-130) mL/min Glucose 148 H (65-115) mg/dL Calculated Osmolal ity 286 (285-295) mOsm/k g Calcium 10.1 (8.5-10.5) mg/dL Total Bilirubin 0.3 (0.15-1.2) mg/dL AST 16 (0-40) U/L ALT 8 (0-41) U/L Alkaline Phosphata se 96 (40-130) IU/L Total Protein 8.1 (6.6-8.7) g/dL Albumin 3.4 L (3.5-5.2) g/dL Globulin 4.7 H (1.3-4.6) g/dL Lipase 23 (13-60) U/L Discharge Plan Discharge Patient Disposition: Admitted As Inpatient Admit Provider: Hugo Burden Clinical Impression: Cellulitis, COPD (chronic obstructive pulmonary disease), HTN (hypertension), Diabetes, Diabetic peripheral neuropathy associated with type 2 diabetes mellitus, Status post amputation of great toe, Diabetic foot infection Condition: Stable Referrals: Ector Peña MD [Family Provider] - Discharge Date/Time: 08/19/19 13:20 Coding Level of Care Code ED Wealth Management Director for g Fwd Exam Comprehensive
[2019-08-19 10:50] LABS: Basophils % 0.3 %; Eosinophils # 0.4 10^3/uL (0.0-0.8); Eosinophils % 3.1 %; Hemoglobin 12.6 g/dL (11.7-16.6); Lymphocytes # 1.7 10^3/uL (0.8-4.8); Lymphocytes % 14.7 %; Mean Corpuscular Hemoglobin 27.9 pg (28.0-34.0); Mean Corpuscular Volume 92.9 fL (80-94); Mean Platelet Volume 9.8 fL (7.4-10.4); Monocytes # 0.7 10^3/uL (0.2-0.9); Monocytes % 6.1 %; Neutrophils # 8.7 10^3/uL (1.8-7.7); Neutrophils % 75.5 %; Nucleated Red Blood Cells % 0 %; Platelet Count 380 10^3/cmm (130-400); Red Blood Count 4.52 10^6/uL (4.1-5.3); Red Cell Distribution Width 14.8 % (12.1-15.1); White Blood Count 11.5 10^3/uL (4.0-10.0)
--- NOTE | 2019-08-19 10:58 | PC.NURSE ---
portable xray at bedside
[2019-08-19 11:01] LABS: Alanine Aminotransferase 8 U/L (0-41); Albumin Level 3.4 g/dL (3.5-5.2); Alkaline Phosphatase 96 IU/L (40-130); Anion Gap 18.7 (5-19); Aspartate Amino Transferase 16 U/L (0-40); Blood Urea Nitrogen 30 mg/dL (8-23); Calcium 10.1 mg/dL (8.5-10.5); Carbon Dioxide 28 mmol/L (22-29); Chloride 96 mmol/L (98-107); Globulin 4.7 g/dL (1.3-4.6); Glomerular Filtration Rate 46.5 mL/min (90-130); Glucose 148 mg/dL (65-115); Lipase 23 U/L (13-60); Osmolality Calculated 286 mOsm/kg (285-295); Potassium 4.7 mmol/L (3.5-5.1); Sodium 138 mmol/L (136-145); Total Bilirubin 0.3 mg/dL (0.15-1.2); Total Protein 8.1 g/dL (6.6-8.7)
--- NOTE | 2019-08-19 11:01 | USCV_ITS ---
EvelynCecilio oropeza Age: 68 Gender: M : 1950 Exam Date: 08/19/2019 11:39 Ordering Phys: Jean Anne DO Technologist: EMA PATEL [place] [facility] [place]: ARM PAIN. SWELLING. CELLULITIS. HISTORY: Upper extremity pain. PROCEDURES: 2-D, Doppler and augmentation imaging is submitted of the right upper extremity venous system extending from the right jugular vein through the radial and ulnar veins. The cephalic vein is also included. FINDINGS: No DVT visualized in the right upper extremity at this time. Technically difficult exam due to patient positioning and swelling. Superficial thrombophlebitis noted in the RIGHT cephalic vein above the AC space. CONCLUSIONS Superficial thrombophlebitis is detected in the right cephalic. Dr. Rosio Shah DO (Electronically Signed) Final Date: 19 August 2019 12:24 S
--- NOTE | 2019-08-19 11:35 | PC.NURSE ---
portable ultrasound at bedside
[2019-08-19] MEDS: linezolid premix 600 MG/300 ML PREMIX 300 MG IV (13:02)
[2019-08-19] MEDS: piperacillin-tazobactam 3.375 GM in sodium chloride 0.9% (plus) 50 ML IV (13:03)
--- NOTE | 2019-08-19 13:20 | P.HP_ITS ---
Providers/Chief Complaint Admitting Physician: Hugo Burden MD Chief Complaint: RIGHT ARM, RIGHT FOOT PAIN History of Present Illness Cecilio Díaz is a 68 year old male who presents from wound care clinic via the ER. There is concern that he needs some IV antibiotics for his right foot. [facility] to [facility] and will need further debridement. He reports no significant pain of the foot. He was discharged on August 03 on Augmentin to the nursing facility. Patient reports he has been doing fine without fever, nausea or any other difficulties. There was also a concern about a red and swollen right upper extremity and a PICC line that did not work. He was receiving IV imipenem through the PICC line at the nursing facility for approximately 10 days for Pseudomonas obtain from a bone culture. Further history is somewhat difficult from the patient. Review of Systems General: Reports: 10 or more systems reviewed and unremarkable except in HPI and below Const: Denies: fever Eyes: Denies: change in vision ENMT: Denies: throat pain Card: Denies: chest pain or palpitations Resp: Denies: shortness of breath GI: Denies: abdominal pain : Denies: flank pain Musc: Denies: neck pain Skin/Breast: Denies: rash Neuro: Denies: headache Psych: Denies: anxiety Endo: Denies: excessive urination Mega/Lymph: Denies: easy bruising All/Imm: Denies: hives Medications/Allergies Home Medications Medication Instructions Recorded Confirmed Last Taken Type Heparin Flush 5ml-10units See Rx Instructions .ROUTE .COMPLEX 08/19/19 08/19/19 08/18/19 History Lactobacillus rhamnosus GG 1 cap PO DAILY PRN 08/19/19 08/19/19 08/19/19 07:30 History [Culturelle] hydrocodone-acetaminophen [[place]] 1 tab PO Q6H PRN 08/19/19 08/19/19 08/19/19 07:37 History imipenem-cilastatin See Rx Instructions .ROUTE .COMPLEX 08/19/19 08/19/19 08/18/19 History insulin glargine [Lantus U-100 13 unit SUBCUT BEDTIME 08/19/19 08/19/19 08/18/19 20:00 History Insulin] loperamide [Imodium A-D] See Rx Instructions .ROUTE .COMPLEX 08/19/19 08/19/19 08/11/19 History nicotine 1 patch TRANSDERMAL Q24H PRN 08/19/19 08/19/19 Unknown History nystatin 1 applic TOPICAL BID 08/19/19 08/19/19 08/19/19 07:59 History sodium hypochlorite [[place] 1 irrig TOPICAL BID 08/19/19 08/19/19 08/18/19 History Solution] Allergies Allergy/AdvReac Type Severity Reaction Status Date / Time No Known Allergies Allergy Verified 07/11/19 14:26 PFSH Acute PFSH: Medical History COPD (chronic obstructive pulmonary disease) Depression Diabetes HTN (hypertension) Smoking addiction Surgical History No history of previous surgery Status post amputation of great toe Family History Other Healthy adult Social History Smoking and tobacco status: former smoker Alcohol intake: never Lives independently: Yes Household members: none Marital status: Single Current occupational status: retired Vitals/I&O/Wt Last Vital Signs Temp 97.6 F 08/19/19 10:14 Pulse 68 08/19/19 12:34 Resp 17 08/19/19 10:14 BP 122/64 08/19/19 12:34 Pulse Ox 98 08/19/19 12:34 Weight last 48 hrs Weight 122.47 kg Physical Exam Narrative: EXAM NARRATIVE: General exam is a white male, in no obvious distress. HEENT: Pupils equally round. Oropharynx clear. Neck is supple no lymphadenopathy or thyromegaly Cardiovascular regular rate and rhythm without murmur, no S3 or S4 Lungs clear, no wheezing Abdomen is soft with positive bowel sounds, no obvious organomegaly Extremities no cyanosis or clubbing. Right lower extremity with extensive dressing, that appears fresh from the wound clinic. Right upper extremity with some edema, erythema surrounding his PICC line site. No significant drainage. Data : 08/19/19 10:35 08/19/19 10:35 Other Labs: Venous duplex of the right upper extremity demonstrated no DVT. A superficial thrombophlebitis was noted. Chest x-ray no infiltrate Micro: Microbiology 08/19/19 10:35 Blood Culture - Preliminary Blood SPECIMEN COLLECTED 08/19/19 10:40 Blood Culture - Preliminary Blood SPECIMEN COLLECTED A&P Assessment and plan (1) Cellulitis of right lower extremity: Initiate linezolid, imipenem(based on last culture of Pseudomonas re sistant to Zosyn, fluoroquinolone) Surgery consult for debridement Status: Acute (2) Status post amputation of great toe: Surgery consultation Status: Acute (3) Superficial thrombophlebitis of right upper extremity: PICC line was removed in the emergency department At this point as it is superficial, will monitor but do not suspect full dose or long-term anticoagulation will be needed. Status: Acute Additional A&P Information Peripheral vascular disease. Significantly abnormal resting KATE. Interventional cardiology will be consulted. Type 2 diabetes. Sliding scale insulin instituted. Hypertension, continue home medications Depression History of COPD History of tobacco dependency Heparin for DVT prophylaxis Full code Attestations Medical Necessity Statement*: Will need greater than 2 midnight stay for evaluation and treatment of cellulitis Time Spent in Patient Care: Greater than 35 minutes Coding Level of Care Code Acute Service Unit Operator [employer] for Nirmala Fwkhalida Diagnoses Cellulitis of right lower extremity L03.115 Status post amputation of great toe Z89.419 Superficial thrombophlebitis of right upper extremity I80.8
[2019-08-19] MEDS: sodium chloride 0.9% 1,000 ML 75 ML IV (14:45)
[2019-08-19] MEDS: heparin 5,000 unit/mL INJ 1 mL 5000 UNIT SUBCUT (14:46)
[2019-08-19 16:41] LABS: Glucose Point of Care 76 mg/dL (70-110)
--- NOTE | 2019-08-19 17:05 | P.CONIM_ITS ---
Providers/Reason For Consult Consulting Physican/Specialty*: Interventional cardiology Reason for Consult*: Critical limb ischemia with nonhealing ulcer threatening limb Attending Physician: Hugo Burden MD History of Present Illness History of Present Illness Cecilio Díaz is a 68 year old male past medical history significant for severe peripheral vascular disease, critical limb ischemia, chronic kidney disease stage III-IV with baseline creatinine of 1.5-2.0, diabetes mellitus, nonhealing right foot ulcer status post debridement now presented with limb threatening worsening of wound/dehiscion. His other comorbidities are diabetes mellitus, COPD and tobacco abuse. Patient is admitted for IV antibiotic and wound treatment. Dr. Pretty and Dr. Burden has asked me to assist in his care. Patient denies chest pain PND orthopnea fever and cough. Review of Systems General: Reports: 10 or more systems reviewed and unremarkable except in HPI and below Const: Denies: fever, chills, body aches, change in appetite, fatigue or malaise Eyes: Denies: change in vision ENMT: Denies: throat pain, ear pain, nasal discharge or nasal congestion Card: Denies: chest pain, palpitations, edema, shortness of breath on exertion or shortness of breath when lying down Resp: Denies: shortness of breath, productive cough or non-productive cough GI: Denies: abdominal pain, nausea, vomiting, vomiting blood, coffee grounds in vomit, diarrhea, constipation, bloating, blood in stool or black tarry stool : Denies: flank pain, painful urination, urinary frequency or urinary urgency Musc: Denies: neck pain Skin/Breast: Denies: rash or itching Neuro: Denies: headache Psych: Denies: anxiety or sleeping more Endo: Denies: excessive urination Mega/Lymph: Denies: easy bruising All/Imm: Denies: hives Meds/Allergies Home Medications and Allergies Home Medications Medication Instructions Recorded Confirmed Type Invokana 300 mg PO DAILY 05/23/19 08/19/19 History albuterol sulfate [Ventolin HFA] 1 puff INHALATION QID PRN 05/23/19 08/19/19 History budesonide-formoterol [Symbicort] 2 puff INHALATION BID 05/23/19 08/19/19 History dicyclomine 10 mg PO TID 05/23/19 08/19/19 History ergocalciferol (vitamin D2) See Rx Instructions .ROUTE .COMPLEX 05/23/19 08/19/19 History [Vitamin D2] fluoxetine 20 mg PO DAILY 05/23/19 08/19/19 History glimepiride 4 mg PO BID 05/23/19 08/19/19 History hydrochlorothiazide 25 mg tablet 25 mg PO DAILY #90 tab 05/26/19 08/19/19 Rx metformin 1,000 mg tablet 1,000 mg PO BID #60 tab 05/26/19 08/19/19 Rx metoprolol tartrate 25 mg tablet 25 mg PO BID 90 Days #180 tab 05/26/19 08/19/19 Rx acetaminophen 650 mg PO Q6H PRN #0 tab 08/04/19 08/19/19 Rx Heparin Flush 5ml-10units See Rx Instructions .ROUTE .COMPLEX 08/19/19 08/19/19 History Lactobacillus rhamnosus GG 1 cap PO DAILY PRN 08/19/19 08/19/19 History [Culturelle] hydrocodone-acetaminophen [[place]] 1 tab PO Q6H PRN 08/19/19 08/19/19 History imipenem-cilastatin See Rx Instructions .ROUTE .COMPLEX 08/19/19 08/19/19 History insulin glargine [Lantus U-100 13 unit SUBCUT BEDTIME 08/19/19 08/19/19 History Insulin] loperamide [Imodium A-D] See Rx Instructions .ROUTE .COMPLEX 08/19/19 08/19/19 History nicotine 1 patch TRANSDERMAL Q24H PRN 08/19/19 08/19/19 History nystatin 1 applic TOPICAL BID 08/19/19 08/19/19 History sodium hypochlorite [Dakin's 1 irrig TOPICAL BID 08/19/19 08/19/19 History Solution] Allergies Allergy/AdvReac Type Severity Reaction Status Date / Time No Known Allergies Allergy Verified 07/11/19 14:26 Current Medications Current Medications Generic Name Dose Route Start Last Admin Trade Name Freq PRN Reason Stop Dose Admin Heparin Sodium (Beef Lung) 5,000 unit 08/19/19 15:15 08/19/19 14:46 Heparin SUBCUT 5,000 unit Q8H ESTHER Administration Sodium Chloride 1,000 mls @ 75 mls/hr 08/19/19 13:56 08/19/19 14:45 Sodium Chloride 0.9% IV 75 mls/hr .[id number] ESTHER Administration Imipenem/Cilastatin Sodium 500 100 mls @ 200 mls/hr 08/19/19 15:30 08/19/19 15:34 mg/ Sodium Chloride IV Infused Q6H ESTHER Infusion Protocol PFSH Acute PFSH: Medical History CKD (chronic kidney disease), stage III COPD (chronic obstructive pulmonary disease) Depression Diabetes HTN (hypertension) Smoking addiction Surgical History No history of previous surgery Status post amputation of great toe Family History Other Healthy adult Social History Smoking and tobacco status: former smoker Alcohol intake: never Lives independently: Yes Household members: none Marital status: Single Current occupational status: retired Vitals/I&O/Wt Last Vital Signs Temp 98.1 F 08/19/19 15:50 Pulse 80 08/19/19 15:50 Resp 18 08/19/19 15:50 BP 122/76 08/19/19 15:50 Pulse Ox 93 08/19/19 15:50 08/19/19 08/19/19 08/19/19 06:59 14:59 22:59 Intake Total 350 / 350 100 / 450 Balance 350 / 350 100 / 450 Weight last 48 hrs Weight 270 lb Physical Exam Narrative: EXAM NARRATIVE: GENERAL: Patient is alert, awake and oriented x3. NECK: No jugular vein distension. HEENT: No cyanosis. No icterus. No pallor. HEART: Regular S1 and S2. No murmur, rub or gallop. LUNGS: Clear to auscultate bilaterally. ABDOMEN: Soft, nontender and nondistended. Positive bowel sounds. No guarding, rebound or tenderness. EXTREMITIES: Right leg swollen, warm, right foot bandaged no significant pulses noted in the foot.. Data Micro: Micro: Microbiology 08/19/19 10:35 Blood Culture - Pr eliminary Blood SPECIMEN [facility] 08/19/19 10:40 Blood Culture - Pr eliminary Blood SPECIMEN [facility] A&P Assessment and plan (1) Critical lower limb ischemia: Patient has limb threatening ischemia. Continue IV antibiotic, continue IV fluid since patient has chronic renal failure baseline creatinine is 1.5-2.0. I have discussed with the patient in detail he would like to proceed with peripheral angiogram and revascularization if indicated. Patient understands risk for contrast-induced nephropathy short-term and permanent renal failure secondary to peripheral angiogram. He also has groin fungus we will treat with nystatin powder. Status: Acute (2) Cellulitis of right lower extremity: Continue antibiotics Status: Acute (3) CKD (chronic kidney disease), stage III: Patient baseline creatinine is 1.5-2.0. Continue IV fluid. Status: Acute Consult Attestations Medical Necessity Statement: I am expecting his stay to cross more than 2 midnights Coding Level of Care Code New Pt Acute Vrt Mechanic for g Fwd Patient Type New History Expanded Problem Focused Exam Expanded Problem Focused Medical Decision Making Moderate Complexity Diagnoses Critical lower limb ischemia I99.8 Cellulitis of right lower extremity L03.115 CKD (chronic kidney disease), stage III N18.3
[2019-08-19] MEDS: nystatin powder 15 gm Btl 1 APPLIC TOPICAL (18:32)
[2019-08-19] MEDS: metoprolol tartrate 25 mg Tablet PO (18:32)
[2019-08-19 19:01] LABS: Urine Appearance Clear (CLEAR); Urine Color Yellow (Yellow)
[2019-08-19 19:02] LABS: Bilirubin Urine 1+ (NEGATIVE); Blood Urine Neg (Negative); Glucose Urine UA 4+ (Normal); Ketones Urine 1+ (Negative); Nitrate Urine Negative (Negative); Protein Urine 1+ (Negative); Specific Gravity, Urine 1.015 (1.005-1.030); Urobilinogen Urine Norm (Negative); pH Urine 5 (5-7)
[2019-08-19 19:03] LABS: Add Urine Microscopic? YES; Leukocyte Esterase Urine 1+ (Negative)
[2019-08-19 19:08] LABS: Add Urine Culture? Yes; Bacteria Urine 1+; Squamous Epithelial Cell Urine 0-4 (0-5)
[2019-08-19 20:50] LABS: Glucose Point of Care 119 mg/dL (70-110)
[2019-08-20] VITALS (11 sets, daily range): BP systolic 112–136; BP diastolic 50–78; PULSE 61–71; RESP 16–20; TEMP 36.4–36.8; O2SAT 92–96
--- NOTE | 2019-08-20 | USCV_ITS ---
EvelynjohnnaCecilio Age: 68 Gender: M : 1950 Exam Date: 08/20/2019 11:00 Ordering Phys: Amparo Delong MD Technologist: Kathy Echevarria Exam Location: [facility] – [place] Indication: US VASCULAR GUIDANCE LEFT GROIN AREA Findings Ultrasound vascular guidance of left groin for peripherial angiogram. Flow was dictated in the left common femoral vein and artery. Only the color flow is documented. Conclusions The left common femoral vein and the artery patency was demonstrated by color flow Doppler examination. Dr Izzy De Leon MD FAC (Electronically Signed) Final Date: 22 August 2019 15:17 C MTDD
[2019-08-20] MEDS: linezolid premix 600 MG/300 ML PREMIX 300 MG IV ×3 (00:20→23:52)
[2019-08-20] MEDS: heparin 5,000 unit/mL INJ 1 mL 5000 UNIT SUBCUT ×4 (00:20→23:52)
[2019-08-20] MEDS: sodium chloride 0.9% 1,000 ML 75 ML IV (03:31)
[2019-08-20 05:08] LABS: Basophils % 0.4 %; Eosinophils # 0.3 10^3/uL (0.0-0.8); Eosinophils % 2.9 %; Hematocrit 34.7 % (42.0-52.0); Hemoglobin 10.6 g/dL (11.7-16.6); Lymphocytes # 1.7 10^3/uL (0.8-4.8); Lymphocytes % 18.2 %; Mean Corpuscular HGB Conc 30.5 g/dL (30.0-36.0); Mean Corpuscular Hemoglobin 28.7 pg (28.0-34.0); Mean Platelet Volume 9.9 fL (7.4-10.4); Monocytes # 0.8 10^3/uL (0.2-0.9); Monocytes % 8.6 %; Neutrophils # 6.5 10^3/uL (1.8-7.7); Neutrophils % 69.5 %; Nucleated Red Blood Cells % 0 %; Platelet Count 291 10^3/cmm (130-400); Red Blood Count 3.69 10^6/uL (4.1-5.3); Red Cell Distribution Width 14.8 % (12.1-15.1); White Blood Count 9.4 10^3/uL (4.0-10.0)
[2019-08-20 05:31] LABS: Anion Gap 14.2 (5-19); Blood Urea Nitrogen 25 mg/dL (8-23); Calcium 8.9 mg/dL (8.5-10.5); Carbon Dioxide 26 mmol/L (22-29); Chloride 101 mmol/L (98-107); Glomerular Filtration Rate 50.4 mL/min (90-130); Glucose 106 mg/dL (65-115); Osmolality Calculated 281 mOsm/kg (285-295); Potassium 4.2 mmol/L (3.5-5.1); Sodium 137 mmol/L (136-145)
--- NOTE | 2019-08-20 05:53 | PC.NURSE ---
Attempted to prep patient for cath. Patient due to patients excoriation to groin did not want his groin touched and attempted to dopple the pulse in the L foot. Patient couldn't leave the foot still. Will pass along to oncoming shift. Dressing to R foot had come off and that was changed as well. Will continue to monitor.
--- NOTE | 2019-08-20 06:18 | PC.NURSE ---
TOOL GRINDING MACHINE OPERATOR offered patient Rocio care, clean his anderson, and to be cleaned up. Patient refused to be touched at this time.
[2019-08-20 06:25] LABS: Glucose Point of Care 129 mg/dL (70-110)
[2019-08-20] MEDS: metoprolol tartrate 25 mg Tablet PO ×2 (08:23→17:40)
[2019-08-20] MEDS: fluoxetine 20 mg Capsule PO (08:24)
[2019-08-20] MEDS: sodium chloride 0.9% 1,000 ML 100 ML IV (08:50)
[2019-08-20] MEDS: nystatin powder 15 gm Btl 1 APPLIC TOPICAL ×2 (08:51→17:42)
--- NOTE | 2019-08-20 09:45 | PC.NURSE ---
Patient transferred to slab stripper by slab stripper staff on patient's bed
[2019-08-20] MEDS: diphenhydrAMINE 50 mg Capsule PO (09:47)
--- NOTE | 2019-08-20 11:45 | PC.NURSE ---
Patient returmed to room from laborer powerhouse. Puncture site left groin without bleeding or swelling.
--- NOTE | 2019-08-20 11:57 | PM.PN ---
Subjective Subjective: Interval history: Cecilio reports he is doing okay this morning. No right foot pain. I saw him prior to his angiogram. Unfortunately this was not successful in regards to access and he is to have a CTA tomorrow. Medications: Reviewed: Yes Vitals/I&O/Wt Last Vital Signs Temp 97.8 F 08/20/19 07:43 Pulse 63 08/20/19 09:18 Resp 16 08/20/19 09:18 BP 112/52 08/20/19 07:43 Pulse Ox 96 08/20/19 09:18 08/19/19 08/20/19 08/20/19 22:59 06:59 14:59 Intake Total 680 / 1030 1257.5 / 2287.5 Output Total 250 / 250 1520 / 1770 Balance 430 / 780 -262.5 / 517.5 Weight last 48 hrs Weight 122.47 kg Physical Exam Narrative: EXAM NARRATIVE: General exam is a white male, in no obvious distress. Cardiovascular regular rate and rhythm without murmur, no S3 or S4 Lungs clear, no wheezing Abdomen is soft with positive bowel sounds, no obvious organomegaly Extremities no cyanosis or clubbing. Right lower extremity with extensive dressing, was reviewed yesterday. Minor cellulitis. Significant wound with packing. Right upper extremity today appears less swollen. Less erythematous. Urinary Catheter Management^: 2-way Urethral: Cath Placed During This Visit: yes Reason for Continuing Indwelling Catheter: Assist healing open wound Urinary Catheter Date of Insertion: 08/19/19 Urinary Catheter Time of Insertion: 19:17 Data : 08/20/19 04:52 08/20/19 04:52 Micro: Microbiology 08/19/19 10:40 Blood Culture - Preliminary Blood NEGATIVE TO DATE 08/19/19 10:35 Blood Culture - Preliminary Blood NEGATIVE TO DATE A&P Assessment and plan (1) Cellulitis of right lower extremity: Continue linezolid, imipenem(based on last culture of Pseudomonas resistant to Zosyn, fluoroquinolone) Surgery following Status: Acute (2) Status post amputation of great toe: Surgery consultation Status: Acute (3) Superficial thrombophlebitis of right upper extremity: PICC line was removed in the emergency department At this point as it is superficial, will monitor but do not suspect full dose or long-term anticoagulation will be needed. Status: Acute Additional A&P Information Peripheral vascular disease. Significantly abnormal resting KATE. Interventional cardiology planning CTA tomorrow. Urinary retention. Yesterday I was called secondary to patient's urinary retention. Catheter was placed. 500 cc residual. Flomax added today. Type 2 diabetes. Sliding scale insulin instituted. Hypertension, continue home medications Depression History of COPD History of tobacco dependency Heparin for DVT prophylaxis Full code Attestations Medical Necessity Statement*: Needs continued hospitalization for further delineation of severe peripheral vascular disease with possible need for revascularization along with IV antibiotics for cellulitis. Coding Level of Care Code Acute Client Services Specialist for Nirmala Patel Diagnoses Cellulitis of right lower extremity L03.115 Status post amputation of great toe Z89.419 Superficial thrombophlebitis of right upper extremity I80.8
[2019-08-20 12:39] LABS: Glucose Point of Care 114 mg/dL (70-110)
--- NOTE | 2019-08-20 13:25 | P.PN_ITS ---
Subjective Subjective: Interval history: Patient was taken to the [employer] [facility] were not able to obtain access as it appeared to me that patient has been occluded common femoral on the left side. We are planning to obtain CTA tomorrow morning which will also give us insight in his vascular system with the plan To intervene by Thursday Medications: Reviewed: Yes Vitals/I&O/Wt Last Vital Signs Temp 97.8 F 08/20/19 07:43 Pulse 63 08/20/19 09:18 Resp 16 08/20/19 09:18 BP 112/52 08/20/19 07:43 Pulse Ox 96 08/20/19 09:18 08/19/19 08/20/19 08/20/19 22:59 06:59 14:59 Intake Total 680 / 1030 1257.5 / 2287.5 Output Total 250 / 250 1520 / 1770 Balance 430 / 780 -262.5 / 517.5 Weight last 48 hrs Weight 270 lb Physical Exam Narrative: EXAM NARRATIVE: GENERAL: Patient is alert, awake and oriented x3. NECK: No jugular vein distension. HEENT: No cyanosis. No icterus. No pallor. HEART: Regular S1 and S2. No murmur, rub or gallop. LUNGS: Clear to auscultate bilaterally. ABDOMEN: Soft, nontender and nondistended. Positive bowel sounds. No guarding, rebound or tenderness. EXTREMITIES: Right leg swollen, warm, right foot bandaged no significant pulses noted in the foot.. Urinary Catheter Management^: 2-way Urethral: Cath Placed During This Visit: yes Reason for Continuing Indwelling Catheter: Assist healing open wound Urinary Catheter Date of Insertion: 08/19/19 Urinary Catheter Time of Insertion: 19:17 Data : 08/20/19 04:52 08/20/19 04:52 Micro: Microbiology 08/19/19 10:40 Blood Culture - Preliminary Blood NEGATIVE TO DATE 08/19/19 10:35 Blood Culture - Preliminary Blood NEGATIVE TO DATE A&P Assessment and plan (1) Critical lower limb ischemia: Patient has limb threatening ischemia. Continue IV antibiotic, continue IV fluid since patient has chronic renal failure baseline creatinine is 1.5-2.0. I have discussed with the patient in detail he would like to proceed with peripheral angiogram and revascularization if indicated. Patient understands risk for contrast-induced nephropathy short-term and permanent renal failure secondary to peripheral angiogram. He also has groin fungus we will treat with nystatin powder. Today we tried to intervene through left common femoral artery which appeared to be occluded as we were not able to cross with a wire . We are planning to perform CTA post to assess the degree of blockages and decide regarding what anaphylaxis we can perform either radial tibial or antegrade right leg approach, we'll ask for CTA. We are planning to bring his creatinine further down today has improved to 1.4 IV continues to infused with IV fluid 100 mL per hour for next 24 hours. Status: Acute (2) Cellulitis of right lower extremity: Continue antibiotics Status: Acute (3) CKD (chronic kidney disease), stage III: Patient baseline creatinine is 1.5-2.0. Today creatinine is 1.4. Continue IV fluid. I will discontinue hydrochlorothiazide. Status: Acute Attestations Medical Necessity Statement*: Patient requires continuation hospitalization for above defined problem. Coding Level of Care Code Established Pt Acute Core Drill Operator Helper for g Fwd Patient Type Established History Expanded Problem Focused Exam Expanded Problem Focused Medical Decision Making Moderate Complexity Diagnoses Critical lower limb ischemia I99.8 Cellulitis of right lower extremity L03.115 CKD (chronic kidney disease), stage III N18.3
--- NOTE | 2019-08-20 13:49 | P.CONIM_ITS ---
Providers/Reason For Consult Consulting Physican/Specialty*: Dr. Burden Reason for Consult*: Right foot wound Attending Physician: Hugo Burden MD History of Present Illness History of Present Illness Cecilio Díaz is a 68 year old male who is referred from the wound care clinic at [facility] for worsening cellulitis and necrotic tissue in the right foot. Patient says the foot is tender now but denies any fevers chills. The wound is undergone multiple debridements in the OR including amputation of the great toe followed by amputation of the metatarsal head. His last KATE was 0.7. He was getting IV imipenem through a PICC line which was removed due to concerns about redness around the PICC line. Review of Systems General: Reports: 10 or more systems reviewed and unremarkable except in HPI and below Meds/Allergies Home Medications and Allergies Home Medications Medication Instructions Recorded Confirmed Type Invokana 300 mg PO DAILY 05/23/19 08/19/19 History albuterol sulfate [Ventolin HFA] 1 puff INHALATION QID PRN 05/23/19 08/19/19 History budesonide-formoterol [Symbicort] 2 puff INHALATION BID 05/23/19 08/19/19 History dicyclomine 10 mg PO TID 05/23/19 08/19/19 History ergocalciferol (vitamin D2) See Rx Instructions .ROUTE .COMPLEX 05/23/19 08/19/19 History [Vitamin D2] fluoxetine 20 mg PO DAILY 05/23/19 08/19/19 History glimepiride 4 mg PO BID 05/23/19 08/19/19 History hydrochlorothiazide 25 mg tablet 25 mg PO DAILY #90 tab 05/26/19 08/19/19 Rx metformin 1,000 mg tablet 1,000 mg PO BID #60 tab 05/26/19 08/19/19 Rx metoprolol tartrate 25 mg tablet 25 mg PO BID 90 Days #180 tab 05/26/19 08/19/19 Rx acetaminophen 650 mg PO Q6H PRN #0 tab 08/04/19 08/19/19 Rx Heparin Flush 5ml-10units See Rx Instructions .ROUTE .COMPLEX 08/19/19 08/19/19 History Lactobacillus rhamnosus GG 1 cap PO DAILY PRN 08/19/19 08/19/19 History [Culturelle] hydrocodone-acetaminophen [[place]] 1 tab PO Q6H PRN 08/19/19 08/19/19 History imipenem-cilastatin See Rx Instructions .ROUTE .COMPLEX 08/19/19 08/19/19 History insulin glargine [Lantus U-100 13 unit SUBCUT BEDTIME 08/19/19 08/19/19 History Insulin] loperamide [Imodium A-D] See Rx Instructions .ROUTE .COMPLEX 08/19/19 08/19/19 History nicotine 1 patch TRANSDERMAL Q24H PRN 08/19/19 08/19/19 History nystatin 1 applic TOPICAL BID 08/19/19 08/19/19 History sodium hypochlorite [[place] 1 irrig TOPICAL BID 08/19/19 08/19/19 History Solution] Allergies Allergy/AdvReac Type Severity Reaction Status Date / Time No Known Allergies Allergy Verified 07/11/19 14:26 Current Medications Current Medications Generic Name Dose Route Start Last Admin Trade Name Freq PRN Reason Stop Dose Admin Fluoxetine HCl 20 mg 08/20/19 09:00 08/20/19 08:24 Prozac PO 20 mg DAILY ESTHER Administration Heparin Sodium (Beef Lung) 5,000 unit 08/19/19 15:15 08/20/19 08:24 Heparin SUBCUT 5,000 unit Q8H ESTHER Administration Imipenem/Cilastatin Sodium 500 100 mls @ 200 mls/hr 08/19/19 15:30 08/20/19 03:31 mg/ Sodium Chloride IV 200 mls/hr Q6H ESTHER Administration Protocol Linezolid 600 mg in 300 mls @ 300 mls/hr 08/20/19 00:30 08/20/19 03:22 Zyvox Premix IV Infused Q12H ESTHER Infusion Protocol Sodium Chloride 1,000 mls @ 100 mls/hr 08/20/19 08:00 08/20/19 08:50 Sodium Chloride 0.9% IV 08/20/19 17:59 100 mls/hr .Q10H ONE Administration Insulin Aspart 0 unit 08/19/19 18:00 08/20/19 07:20 Novolog SUBCUT Not Given TIDWM ESTHER Protocol Insulin Aspart 0 unit 08/19/19 21:00 08/19/19 21:17 Novolog SUBCUT Not Given BEDTIME ESTHER Protocol Metoprolol Tartrate 25 mg 08/19/19 18:00 08/20/19 08:23 Lopressor PO 25 mg BID ESTHER Administration Nystatin 1 applic 08/19/19 18:00 08/20/19 08:51 Nystatin Powder TOPICAL 1 applic BID ESTHER Administration Fluticasone/Salmeterol 1 puff 08/19/19 18:00 08/20/19 09:09 Advair Diskus 500-50 INHALATION 1 puff BID ESTHER Administration PFSH Acute PFSH: Medical History CKD (chronic kidney disease), stage III COPD (chronic obstructive pulmonary disease) Depression Diabetes HTN (hypertension) Smoking addiction Surgical History No history of previous surgery Status post amputation of great toe Family History Other Healthy adult Social History Smoking and tobacco status: former smoker Alcohol intake: never Lives independently: Yes Household members: none Marital status: Single Current occupational status: retired Vitals/I&O/Wt Last Vital Signs Temp 97.8 F 08/20/19 07:43 Pulse 63 08/20/19 09:18 Resp 16 08/20/19 09:18 BP 112/52 08/20/19 07:43 Pulse Ox 96 08/20/19 09:18 08/19/19 08/20/19 08/20/19 22:59 06:59 14:59 Intake Total 680 / 2287.5 1257.5 / 2287.5 Output Total 250 / 1770 1520 / 1770 Balance 430 / 517.5 -262.5 / 517.5 Weight last 48 hrs Weight 270 lb Physical Exam Narrative: EXAM NARRATIVE: HEENT: Normocephalic Eye: Sclera /conjunctiva normal Respiratory and chest: Bilateral clear breath sounds on auscultation Cardiovascular: Normal S1 and S2 heart sounds Abdomen: Soft to palpation Neurological: Oriented to place person and time Skin: Intact, 5 x 4 x 3 cm ulcer at the great toe amputation site with associated necrotic tissue, edema and mild erythema. Tender to palpation. Urinary Catheter Management^: 2-way Urethral: Cath Placed During This Visit: yes Reason for Continuing Indwelling Catheter: Assist healing open wound Urinary Catheter Date of Insertion: 04/17/20 Urinary Catheter Time of Insertion: 19:17 Data Micro: Micro: Microbiology 08/19/19 10:40 Blood Culture - Pr eliminary Blood NEGATIVE TO PAULINE E 08/19/19 10:35 Blood Culture - Pr eliminary Blood NEGATIVE TO PAULINE E A&P Assessment and plan (1) Non-pressure chronic ulcer of other part of right foot with necrosis of bone: 68-year-old gentleman with multiple core morbidities who is a vasculopath with a nonhealing wound on the right great foot at the site of the amputation. Patient has been seen by Dr. Delong who is going to attempt an angiogram to see if we can improve perfusion to that foot. If perfusion to that foot cannot be improved , the patient would most likely benefit from right below-knee amputation Status: Resolved Coding Level of Care Code Acute Power Machine Operator for Nirmala Patel Diagnoses Non-pressure chronic ulcer of other part of right foot with necrosis of bone L97.514
[2019-08-20 14:31] LABS: Anion Gap 11.3 (5-19); Blood Urea Nitrogen 22 mg/dL (8-23); Calcium 8.7 mg/dL (8.5-10.5); Carbon Dioxide 29 mmol/L (22-29); Chloride 100 mmol/L (98-107); Glomerular Filtration Rate 46.5 mL/min (90-130); Glucose 201 mg/dL (65-115); Osmolality Calculated 284 mOsm/kg (285-295); Potassium 4.3 mmol/L (3.5-5.1); Sodium 136 mmol/L (136-145)
--- NOTE | 2019-08-20 14:31 | PC.CHAP ---
Pastoral Care Encounter/Spiritual Assessment Type of Contact [] Declined molecular spectroscopist visit [] Patient/Family/Request visit [] Outpatient visit [] Follow-up visit [] Physician referral [] Code/Alert [] Routine visit [] Staff referral [] Actively dying [] Patient sleeping [] Family support [] [X] Out of room [] Palliative care [] [] Receiving care in room [] Pre-surgical visit [] Trauma [] Long length of stay [] ICU visit [] Other: Relational/Emotional Strength [] Patient feels connected with others/family/visitors/staff [] Distress [] Loneliness/isolation [] Abandonment Spirituality of Patient [] Person of Argelia [] Attends Druze of their Argelia [] Believes in Prayer [] Reads Bible or Catholic materials [] There are Spiritual issues to be addressed Director Of Securities And Real Estate Interventions [] Prayer [] Active listening [] Non-anxious presence [] Spiritual/emotional support [] Crisis/trauma care [] Spiritual counseling [] Bereavement support [] Provided bereavement packet [] Provided Bible/devotional materials [] Provided toy/stuffed animal, coloring book to patient or family member [] Provided Communion [] Anointing/[place] [] Salvation [] Completed spiritual assessment [] Other: Impact on Illness or Injury [] Angry [] Fearful [] Anxious [] Often cries [] Exhaustion [] Unable to work [] Unable to attend zoroastrianism [] Unable to walk/stand [] Unable to read [] Unable to drive [] Unable to eat/drink [] Unable to sleep [] Unable to be with family [] Patient intubated [] Other: Summary FOLLOW UP NEXT SGIFT Time spent with patient
[2019-08-20] MEDS: dicyclomine 10 mg Capsule PO ×2 (15:20→21:06)
[2019-08-20] MEDS: albuterol 8 gm MDI 1 PUFF INHALATION (15:56)
[2019-08-20 17:11] LABS: Glucose Point of Care 202 mg/dL (70-110)
--- NOTE | 2019-08-20 19:18 | USR_ITS ---
PROCEDURE INFORMATION: Exam: US Duplex Right Lower extremity arteries or arterial bypass grafts Exam date and time: 08/20/2019 6:27 AM Age: 68 years old Clinical indication: Other: Non-healing wound; Additional info: Pre cath study TECHNIQUE: Imaging protocol: Right Real-time duplex scan of the arteries or arterial bypass grafts of the right lower extremity with 2-D levy scale, color Doppler flow and spectral waveform analysis. COMPARISON: None FINDINGS: Prominent atherosclerotic plaque. Biphasic arterial waveforms in the right iliac and common femoral arteries. Abnormal monophasic waveforms in the right superficial femoral, popliteal, posterior tibial, and anterior tibial arteries, consistent with underlying arterial occlusive disease. Arteriography can be performed for improved characterization, as clinically indicated. US/[place] [id number] IMPRESSION: Abnormal monophasic waveforms in the right superficial femoral, popliteal, posterior tibial, and anterior tibial arteries, consistent with underlying arterial occlusive disease. Arteriography can be performed for improved characterization, as clinically indicated.
[2019-08-20 21:08] LABS: Glucose Point of Care 169 mg/dL (70-110)
[2019-08-20] MEDS: insulin glargine 100 units/1 mL 13 UNIT SUBCUT (21:36)
[2019-08-21] VITALS (9 sets, daily range): BP systolic 108–126; BP diastolic 54–82; PULSE 60–76; RESP 17–22; TEMP 36.6–36.9; O2SAT 90–96
--- NOTE | 2019-08-21 03:50 | PC.NURSE ---
DRESSING TO RIGHT FOOT WAS CHANGED D/T OLD DRESSING BEING OFF. THERE WAS SOME YELLOW EXUDATE. THERE IS NO INCISION ON THE LEFT FEMORAL ARTERY TO ASSESS STATED IN PREVIOUS NOTE. SBAR HAND OFF SHEET FROM [facility] STATES THE SAME. PEDAL PULSES WERE DOPPLED BILATERALLY. RIGHT LEG IS SLIGHTLY PALLOR IN COLOR. PTS GROIN AREA IS EXCORIATED AND IS TENDER TO TOUCH. WILL CONTINUE TO MONITOR.
[2019-08-21 05:12] LABS: Basophils % 0.2 %; Eosinophils # 0.3 10^3/uL (0.0-0.8); Eosinophils % 3.1 %; Hematocrit 33.4 % (42.0-52.0); Hemoglobin 10.3 g/dL (11.7-16.6); Lymphocytes # 1.3 10^3/uL (0.8-4.8); Lymphocytes % 14.7 %; Mean Corpuscular HGB Conc 30.8 g/dL (30.0-36.0); Mean Corpuscular Volume 90.8 fL (80-94); Mean Platelet Volume 9.9 fL (7.4-10.4); Monocytes # 0.9 10^3/uL (0.2-0.9); Monocytes % 9.8 %; Neutrophils # 6.5 10^3/uL (1.8-7.7); Neutrophils % 71.9 %; Nucleated Red Blood Cells % 0 %; Platelet Count 266 10^3/cmm (130-400); Red Blood Count 3.68 10^6/uL (4.1-5.3); Red Cell Distribution Width 14.8 % (12.1-15.1); White Blood Count 9.1 10^3/uL (4.0-10.0)
[2019-08-21 05:34] LABS: Anion Gap 14.2 (5-19); Blood Urea Nitrogen 21 mg/dL (8-23); Calcium 8.8 mg/dL (8.5-10.5); Carbon Dioxide 27 mmol/L (22-29); Chloride 101 mmol/L (98-107); Glomerular Filtration Rate 50.4 mL/min (90-130); Glucose 145 mg/dL (65-115); Osmolality Calculated 285 mOsm/kg (285-295); Potassium 4.2 mmol/L (3.5-5.1); Sodium 138 mmol/L (136-145)
[2019-08-21 07:01] LABS: Glucose Point of Care 130 mg/dL (70-110)
[2019-08-21] MEDS: nystatin powder 15 gm Btl 1 APPLIC TOPICAL ×3 (09:05→17:49)
[2019-08-21] MEDS: metoprolol tartrate 25 mg Tablet PO ×2 (09:06→17:48)
[2019-08-21] MEDS: dicyclomine 10 mg Capsule PO ×3 (09:06→21:24)
[2019-08-21] MEDS: fluoxetine 20 mg Capsule PO (09:06)
[2019-08-21] MEDS: heparin 5,000 unit/mL INJ 1 mL 5000 UNIT SUBCUT ×2 (09:06→15:57)
[2019-08-21] MEDS: tamsulosin 0.4 mg Capsule PO (09:06)
--- NOTE | 2019-08-21 09:13 | P.PN_ITS ---
Subjective Subjective: Interval history: Cecilio reports he is doing okay. Denies any foot pain. Medications: Reviewed: Yes Vitals/I&O/Wt Last Vital Signs Temp 97.9 F 08/21/19 07:56 Pulse 75 08/21/19 08:35 Resp 17 08/21/19 08:34 BP 110/74 08/21/19 07:56 Pulse Ox 93 08/21/19 08:34 08/20/19 08/21/19 08/21/19 22:59 06:59 14:59 Intake Total 860 / 1340 Output Total 3280 / 3280 1400 / 1400 Balance -2420 / -1940 -1400 / -1400 Weight last 48 hrs Weight 122.47 kg Physical Exam Narrative: EXAM NARRATIVE: General exam is a white male, in no obvious distress. Cardiovascular regular rate and rhythm without murmur, no S3 or S4 Lungs clear, no wheezing Abdomen is soft with positive bowel sounds, no obvious organomegaly Extremities no cyanosis or clubbing. Right upper extremity greatly improved. Much less edema. Erythema receded. Right lower extremity with dressing Urinary Catheter Management^: 2-way Urethral: Cath Placed During This Visit: yes Reason for Continuing Indwelling Catheter: Assist healing open wound Urinary Catheter Date of Insertion: 08/19/19 Urinary Catheter Time of Insertion: 19:17 Data : 08/21/19 04:48 08/21/19 04:48 Micro: Microbiology 08/19/19 10:40 Blood Culture - Preliminary Blood NEGATIVE TO DATE 08/19/19 10:35 Blood Culture - Preliminary Blood NEGATIVE TO DATE A&P Assessment and plan (1) Cellulitis of right lower extremity: Continue linezolid, imipenem(based on last culture of Pseudomonas resistant to Zosyn, fluoroquinolone) Surgery following Status: Acute (2) Status post amputation of great toe: Surgery consultation Status: Acute (3) Superficial thrombophlebitis of right upper extremity: PICC line was removed in the emergency department At this point as it is superficial, will monitor but do not suspect full dose or long-term anticoagulation will be needed. Status: Acute Additional A&P Information Peripheral vascular disease. Significantly abnormal resting KATE. Interventional cardiology planning CTA today. Angiogram on Thursday was unsuccessful in regards to access to the lower extremity. Urinary retention. Yesterday I was called secondary to patient's urinary retention. Catheter was placed. 500 cc residual. Flomax added. Near end of hospital stay could consider removal of catheter, and post void residual. Type 2 diabetes. Sliding scale insulin instituted. Hypertension, continue home medications Depression History of COPD History of tobacco dependency Heparin for DVT prophylaxis Full code Attestations Medical Necessity Statement*: Needs continued hospital stay for further IV antibiotics secondary to cellulitis right lower extremity, and further delineation of peripheral vascular disease with CTA Coding Level of Care Code Acute Striping Machine Operator for [facility] Fwd Diagnoses Cellulitis of right lower extremity L03.115 Status post amputation of great toe Z89.419 Superficial thrombophlebitis of right upper extremity I80.8
[2019-08-21] MEDS: sodium hypochlorite 0.25% Btl 473 mL 1 APPLIC TOPICAL ×2 (09:57→21:44)
--- NOTE | 2019-08-21 10:25 | P.PN_ITS ---
Subjective Subjective: Interval history: No issues overnight, patient could not have an angiogram yesterday due to occluded femoral veins. He is due for a CTA today. Dressings already been changed Vitals/I&O/Wt Last Vital Signs Temp 97.9 F 08/21/19 07:56 Pulse 75 08/21/19 08:35 Resp 17 08/21/19 08:34 BP 110/74 08/21/19 07:56 Pulse Ox 93 08/21/19 08:34 08/20/19 08/21/19 08/21/19 22:59 06:59 14:59 Intake Total 860 / 1440 100 / 1440 Output Total 3280 / 4680 1800 / 1800 Balance -2420 / -3240 100 / -3240 -1800 / -1800 Physical Exam Narrative: EXAM NARRATIVE: Right foot: Dressings dry and intact, as per the nursing there was some necrotic tissue in the wound. No significant extension of erythema noted Urinary Catheter Management^: 2-way Urethral: Cath Placed During This Visit: yes Reason for Continuing Indwelling Catheter: Assist healing open wound Urinary Catheter Date of Insertion: 08/19/19 Urinary Catheter Time of Insertion: 19:17 Data : 08/21/19 04:48 08/21/19 04:48 Micro: Microbiology 08/19/19 10:40 Blood Culture - Preliminary Blood NEGATIVE TO DATE 08/19/19 10:35 Blood Culture - Preliminary Blood NEGATIVE TO DATE A&P Assessment and plan (1) Non-pressure chronic ulcer of other part of right foot with necrosis of bone: Necrotic wound right foot status post multiple debridements with KATE 0.7. Lower extremity angiogram could not be performed due to occluded femoral veins, patient will obtain CTA today. If lower extremity cannot be revascularized patient will need a BKA otherwise he will need debridement in the operating room as he is pretty tender and there is extensive necrotic tissue that needs to be debrided. Status: Resolved Attestations Medical Necessity Statement*: Peripheral vascular disease requiring revascularization possible further debridement, continue IV antibiotics Coding Level of Care Code Acute Spareribs Trimmer for Nirmala Fwd Diagnoses Non-pressure chronic ulcer of other part of right foot with necrosis of bone L97.514
[2019-08-21 10:43] LABS: Glucose Point of Care 130 mg/dL (70-110)
[2019-08-21] MEDS: iodixanol 320 mg/mL 100mL Btl IV (12:36)
--- NOTE | 2019-08-21 13:37 | CTR_ITS ---
PROCEDURE INFORMATION: Exam: CTA Angiogram of the Abdominal Aorta and Bilateral Lower Extremities (Run-off) With IV Contrast Exam date and time: 08/21/2019 11:55 AM Age: 68 years old Clinical indication: Numbness; Lower extremity; Right; Prior surgery; Patient HX: Diabetic w HX of neuropathy - recent R great toe amputation - critical ischemia rle; Additional info: Critical limb ischemia TECHNIQUE: Imaging protocol: CT angiogram of the abdominal aorta, pelvis and bilateral lower extremities with IV iodinated contrast. 3D rendering: MIP and/or 3D reconstructed images were created by the technologist. Total DLP: 272504 mGy-cm Radiation optimization: All CT scans at this facility use at least one of these dose optimization techniques: automated exposure control; mA and/or kV adjustment per patient size (includes targeted exams where dose is matched to clinical indication); or iterative reconstruction. Contrast material: VISI 320; Contrast volume: 95 ml; Contrast route: 20G; COMPARISON: CT Chest wwo IV contras [id number] 11/08/2012 10:32 AM FINDINGS: Tubes, catheters and devices: The urinary bladder is drained by a Silver catheter. Aorta: No aortic aneurysm. No aortic dissection. Celiac trunk and mesenteric arteries: No occlusion or significant stenosis. Renal arteries: Moderate proximal left renal artery calcified plaque without significant stenosis. Bilateral single renal arteries. Severe right renal artery calcified plaque with likely severe stenosis. Right iliac arteries: 50-69% stenosis right common iliac artery. Severe stenosis proximal right common iliac artery. Greater than 70% stenoses proximal and mid right external iliac artery. Right femoral/popliteal arteries: 50% stenosis right common femoral artery. 50-69% stenosis distal right common femoral artery. Severe stenoses proximal right superficial femoral artery. Moderate right popliteal artery calcified plaque, no significant stenosis. Right infrapopliteal arteries: Moderate stenosis proximal right anterior tibial artery. Severe stenosis distal right tibioperoneal trunk. Diminutive proximal right posterior tibial artery, possibly a normal variant. 3 vessel runoff to the right ankle. The right anterior tibial and posterior tibial artery supply the forefoot. Distal right foot 1st transmetatarsal amputation with large soft tissue ulcer and amputation stump intraosseous gas. Left iliac arteries: Severe proximal left internal iliac artery stenosis. Severe proximal left external iliac artery stenosis. Left femoral/popliteal arteries: 50% stenosis left common femoral artery. Moderate and severe stenosis of the proximal left superficial femoral artery. Small caliber mid-distal left superficial femoral artery. 50-69% stenosis proximal left popliteal artery. Less than 50% stenosis distal left popliteal artery. Left infrapopliteal arteries: Severe stenoses proximal left anterior tibial artery. Severe stenosis mid left tibioperoneal trunk. Small caliber proximal left posterior tibial artery. Severe stenosis proximal left peroneal artery. The left anterior tibial artery is not identified in the distal lower leg. 2 vessel runoff to the left ankle. No opacification of the left dorsalis pedis artery identified. The left posterior tibial artery supplies the forefoot. Other arteries: Atherosclerotic calcifications are present involving the RCA coronary artery. Heart: Mitral annular calcification is present. Liver: Mild diffuse hypoattenuation of the liver is present consistent with hepatic steatosis. Gallbladder and bile ducts: Gallbladder luminal distention is present measuring 4.9 cm. No intraluminal calculus identified. Pancreas: Severe pancreatic atrophy. Spleen: Normal. No splenomegaly. Adrenals: 18.7 x 12.2 mm left adrenal nodule. 2.9 cm right adrenal nodule. Kidneys and ureters: 2.5 cm right renal simple cyst. Stomach and bowel: Unremarkable. No obstruction. No mucosal thickening. Appendix: The vermiform appendix is normal. Bladder: The urinary bladder is decompressed and difficult to assess. Reproductive: Unremarkable as visualized. Intraperitoneal space: Unremarkable. No free air. No significant fluid collection. Lymph nodes: No lymphadenopathy. Bones/joints: Severe stenosis proximal left profundus femoris artery. Healed proximal right fibular fracture. Soft tissues: Unremarkable. Other veins: Calcified phleboliths are present in the lower pelvis bilaterally. Other findings: Bilateral os tibiale externum, normal variants. CT/CT angio abd aorta runof 42018 IMPRESSION: 1. Severe stenosis proximal right common iliac artery. 2. Greater than 70% stenoses proximal and mid right external iliac artery. 3. Severe stenoses proximal right superficial femoral artery. 4. Moderate stenosis proximal right anterior tibial artery. 5. Severe stenosis distal right tibioperoneal trunk. 6. Diminutive proximal right posterior tibial artery, possibly a normal variant. 7. Distal right foot 1st transmetatarsal amputation with large soft tissue ulcer and amputation stump intraosseous gas. Probable osteomyelitis. 8. Severe proximal left internal iliac artery stenosis. 9. Severe proximal left external iliac artery stenosis. 10. Moderate and severe stenosis of the proximal left superficial femoral artery. 11. Severe stenosis proximal left profundus femoris artery. 12. Severe stenoses proximal left anterior tibial artery. 13. Severe stenosis mid left tibioperoneal trunk. 14. Small caliber proximal left posterior tibial artery. 15. Severe stenosis proximal left peroneal artery. 16. The left anterior tibial artery is not identified in the distal lower leg. 17. No opacification of the left dorsalis pedis artery identified. 18. Severe right renal artery calcified plaque with likely severe stenosis. 19. Distended gallbladder. Gallbladder sonography may be helpful if clinically indicated. 20. Mild fatty infiltration of the liver. 21. Stable bilateral adrenal nodules. 22. Right renal simple cyst. No specific followup required/recommended. 23. Coronary atherosclerosis. Radiation Dose CTDIVOL = (mGy): DLP = [id number] (mGy-cm)
[2019-08-21] MEDS: linezolid premix 600 MG/300 ML PREMIX 300 MG IV (13:42)
[2019-08-21] MEDS: sodium chloride 0.9% 1,000 ML 100 ML IV (14:15)
--- NOTE | 2019-08-21 14:59 | P.PN_ITS ---
Subjective Subjective: Interval history: Patient yesterday underwent unsuccessful attempt to revascularize. From the left common iliac were not able to cross with a wire as it appeared to be occluded. CTA was performed today which showed severe left external disease of the same time severe right common, external, superficial femoral arteryalong with tibioperoneal trunk and below the knee disease. Currently he denies any pain in the leg. Medications: Reviewed: Yes Vitals/I&O/Wt Last Vital Signs Temp 98.5 F 08/21/19 11:27 Pulse 69 08/21/19 11:27 Resp 22 H 08/21/19 11:27 BP 126/82 08/21/19 11:27 Pulse Ox 93 08/21/19 11:27 08/20/19 08/21/19 08/21/19 22:59 06:59 14:59 Intake Total 860 / 1340 400 / 1740 Output Total 3280 / 3280 1800 / 1800 Balance -2420 / -1940 400 / -1540 -1800 / -1800 Physical Exam Narrative: EXAM NARRATIVE: GENERAL: Patient is alert, awake and oriented x3. NECK: No jugular vein distension. HEENT: No cyanosis. No icterus. No pallor. HEART: Regular S1 and S2. No murmur, rub or gallop. LUNGS: Clear to auscultate bilaterally. ABDOMEN: Soft, nontender and nondistended. Positive bowel sounds. No guarding, rebound or tenderness. EXTREMITIES: Right leg swollen, warm, right foot bandaged no significant pulses noted in the foot.. Urinary Catheter Management^: 2-way Urethral: Cath Placed During This Visit: yes Reason for Continuing Indwelling Catheter: Assist healing open wound Urinary Catheter Date of Insertion: 08/19/19 Urinary Catheter Time of Insertion: : Data : 08/21/19 04:48 08/21/19 04:48 Other Labs: IMPRESSION: 1. Severe stenosis proximal right common iliac artery. 2. Greater than 70% stenoses proximal and mid right external iliac artery. 3. Severe stenoses proximal right superficial femoral artery. 4. Moderate stenosis proximal right anterior tibial artery. 5. Severe stenosis distal right tibioperoneal trunk. 6. Diminutive proximal right posterior tibial artery, possibly a normal variant. 7. Distal right foot 1st transmetatarsal amputation with large soft tissue ulcer and amputation stump intraosseous gas. Probable osteomyelitis. 8. Severe proximal left internal iliac artery stenosis. 9. Severe proximal left external iliac artery stenosis. 10. Moderate and severe stenosis of the proximal left superficial femoral artery. 11. Severe stenosis proximal left profundus femoris artery. 12. Severe stenoses proximal left anterior tibial artery. 13. Severe stenosis mid left tibioperoneal trunk. 14. Small caliber proximal left posterior tibial artery. 15. Severe stenosis proximal left peroneal artery. 16. The left anterior tibial artery is not identified in the distal lower leg. 17. No opacification of the left dorsalis pedis artery identified. 18. Severe right renal artery calcified plaque with likely severe stenosis. 19. Distended gallbladder. Gallbladder sonography may be helpful if clinically indicated. 20. Mild fatty infiltration of the liver. 21. Stable bilateral adrenal nodules. 22. Right renal simple cyst. No specific followup required/recommended. 23. Coronary atherosclerosis. Radiation Dose CTDIVOL = (mGy): DLP = 791284 (mGy-cm) Micro: Microbiology 08/19/19 10:40 Blood Culture - Preliminary Blood NEGATIVE TO DATE 08/19/19 10:35 Blood Culture - Preliminary Blood NEGATIVE TO DATE A&P Assessment and plan (1) Critical lower limb ischemia: Patient has limb threatening ischemia. Continue IV antibiotic, continue IV fluid since patient has chronic renal failure baseline creatinine is 1.5-2.0. I have discussed with the patient in detail he would like to proceed with peripheral angiogram and revascularization if indicated. Patient understands risk for contrast-induced nephropathy short-term and permanent renal failure secondary to peripheral angiogram. He also has groin fungus we will treat with nystatin powder. Today we tried to intervene through left common femoral artery which appeared to be occluded as we were not able to cross with a wire . We are planning to perform CTA post to assess the degree of blockages and decide regarding what anaphylaxis we can perform either radial tibial or antegrade right leg approach, we'll ask for CTA. We are planning to bring his creatinine further down today has improved to 1.4 IV continues to infused with IV fluid 100 mL per hour for next 24 hours. On today's visit dated 08/21/2019, patient is status post CTA with runoff, Patient yesterday underwent unsuccessful attempt to revascularize. From the left common iliac were not able to cross with a wire as it appeared to be occluded. CTA was performed today which showed severe left external disease of the same time severe right common, external, superficial femoral arteryalong with tibioperoneal trunk and below the knee disease. We are planning to proceed with peripheral angiogram tomorrow from Right groin approach as left side is almost occluded and cannot be used for access. Status: Acute (2) Cellulitis of right lower extremity: Continue antibiotics Status: Acute (3) CKD (chronic kidney disease), stage III: Patient baseline creatinine is 1.5-2.0. Today creatinine is 1.4. Continue IV fluid. Status: Acute Attestations Medical Necessity Statement*: Required continuation hospitalization for above defined. Planning for peripheral angiogram tomorrow. Coding Level of Care Code Established Pt Acute [employer] for Chg Fwd Patient Type Established History Expanded Problem Focused Exam Expanded Problem Focused Medical Decision Making Moderate Complexity Diagnoses Critical lower limb ischemia I99.8 Cellulitis of right lower extremity L03.115 CKD (chronic kidney disease), stage III N18.3
[2019-08-21 16:42] LABS: Glucose Point of Care 135 mg/dL (70-110)
[2019-08-21] MEDS: insulin glargine 100 units/1 mL 13 UNIT SUBCUT (21:25)
[2019-08-21 21:26] LABS: Glucose Point of Care 232 mg/dL (70-110)
[2019-08-22] VITALS (20 sets, daily range): BP systolic 99–159; BP diastolic 52–78; PULSE 66–90; RESP 17–20; TEMP 36.6–36.9; O2SAT 92–96
--- NOTE | 2019-08-22 | XACV_ITS ---
Ht: 165 cm Wt: 127 kg BSA: 2.49 m2 Gender: Male : 1950 Exam Type: Invasive Peripheral Vascular Procedure(s): Procedure Description: Peripheral Cath Diagnostic Procedure Procedure Description: Iliac arterial aortic angiography Procedure Description: Lower extremities' angiography Procedure Description: Peripheral vascular Intervention Procedure Description: PV Balloon Procedure Description: PV Stent Procedure Description: PV Atherectomy Exam Priority: Routine Lower Extremity Interventional Findings Through right radial and right posterior tibial approach lesions were approached from top and bottom in the right external iliac and right SFA. After crossing the highly calcified ostial right SFA lesion from radial approach radial wire was then tracked along the posterior tibial wire which was in the proximal segment of the right SFA. Radial wire was then advanced in the posterior tibial vessel. Snare was used to pull that wire out of right posterior tibial sheath. Through small catheter Viper wire was exchanged. Using a 2.0 CSI atherectomy bur distal to proximal SFA was atherectomized followed by [id number] and drug-coated balloon angioplasties, please see the inventory for the balloon details. Significant right external iliac stenosis was treated with short [id number] stent balloon expanding. Please see the inventory. Excellent angiographic result with excellent flow was noted from common iliac to below the knee good two-vessel runoff was established. Good dopplerable anterior and posterior tibial pulse were noted. Conclusions Peripheral Procedure Description: Critical limb ischemia with nonhealing ulcer osteomyelitis of right foot, [place] grade V :Monet stage IV. Procedure Right posterior tibial approach and right radial approach was used to cross chronically occluded right SFA and severely significantly stenotic right external iliac. #1 Left and right common iliac artery has luminal irregularity#2 Left external iliac artery has luminal irregularity, right external iliac artery has significant mid calcified stenosis with significant gradient across it #3 Left and right Profunda femoral artery has luminal irregularity#5 Left and right internal iliac artery has luminal irregularities#6 Right common femoral artery has luminal irregularity, right SFA is highly calcified chronically occluded from proximal to distal segment into the popliteal artery. #9 Right tibioperoneal trunk has distal 60% stenosis#10 Right below the knee good two-vessel runoff noted all the way to the foot. Please note that patient was consented in detail all risk benefit and alternative for drug-coated balloon. He has been explained in detail regarding FDA warning of increased mortality and drug-coated balloon cohort. He understands it completely and has given us permission for its use. It was all explained by myself to the patient. Recommendations 1-Return to inpatient for close monitoring and routine cath care 2-Risk factor modification for secondary prevention 3-Statin and aspirin 81 mg life--long, if tolerated 4-Patient was pre-loaded with 300 mg of Plavix, continue Plavix 75mg p.o. daily for one month. 5-Continue optimal medical management 6-Follow up with Dr. Delong in four weeks and your primary care in 10 days. Hemodynamic Data Phase:Rest AO : 158.0 mmHg / 78.0 mmHg ( 111.0 mmHg ) @ 4:47:00 AM 155.0 mmHg / 119.0 mmHg ( 118.0 mmHg ) @ 6:05:00 AM Access Site Site: Right Femoral artery Sheath Size: 6 Fr Hemost... Success: Unsuccessful Site: Right Femoral artery Sheath Size: 6 Fr Hemost... Success: Unsuccessful Procedure Details Findings Procedure Consent Obtained. Hemodynamic formulas in Rest were re-calculated based on hemoglobin value from 08/22/2019 12:00:00 AM. Pre-Procedure Time Out. Identified patient by full name and date of as verbalized by the patient/guarantor. Does the consent match the physician's order: Yes. Accurate & Complete Informed Consent: Yes. Inpatient/Outpatient History & Physical on Chart: Yes. If H&P is completed, is and addenduem needed: N/A;. Visualize and Verify Site with Patient/Guarantor: N/A. Relevant Radiology Images available: N/A. The risks, benefits, and alternatives of sedation and/or procedure were discussed by physician. The patient agrees to continue. Procedure started. Correct patient, site and procedure confirmed by cath team. Current diagnosis: severe PAD. PERRLA. Strong, equal hand rn documentation specialist bilaterally. Lungs clear x 5 lobes. IV Site on Arrival: 20 gauge in the right shoulder. IV Fluids: 0.9% NaCl at KVO. 250 mL infused prior to laboratory sample carrier. Pre Procedural Pulses: right dorsalis pedis was Absent. Pre Procedural Pulses: right posterior tibial was Absent. Pre Procedural Pulses: left dorsalis pedis was Doppled. Pre Procedural Pulses: left posterior tibial was Doppled. Oxygen started at 2liters/min via nasal canula. right groin was prepped with chloroprep then draped in the usual sterile fashion. right radial was prepped with chloroprep then draped in the usual sterile fashion. right pedal was prepped with chloroprep then draped in the usual sterile fashion. Physician notified. Baseline sample Acquired. HR: 65 BPM. Equipment: Peripheral. Physician arrived. Physician scrubbed in. Time out performed with cath team. Aby from US arrived to assist with access. US performed. Lidocaine 1% infiltrated to the right pedal. Arterial access obtained. hand injection performed. US done/left. Seeker and glide wire inserted, seated at the right SFA. Seeker out and 5 Fr pigtail inserted, seated in the distal aorta. Abdominal aortogram / right leg runoff performed in AP @ 10 mL/sec for a total of 30 mL x 2. access is into the vein. called US Lesa back to assist with arterial access. hand injection performed to confirm access. inserting Seeker and glidewire to right lower leg. glidewire out, hand injection performed. glidewire inserted and advanced to the right SFA. wire removed and hand injection performed. glidewiwre inserted and advanced Seeker and wire to right iliac. glidewire out. prepping for right radial access. Lidocaine 1% infiltrated to the right radial. 5 Fr pigtail catheter inserted and seated in the aorta. Abdominal aortogram performed in AP @ 20 mL/sec for a total of 40 mL. pigtail out. exchanged 5 Fr radial sheath for a long 6 Fr Destination sheath. 6Fr Destination sheath exchasnged for a 6Fr reg sheath. JR4 catheter inserted into the reg sheath. catheter out, sheath out, and Destination reinserted. distal Abdominal aortogram performed in AP @ 10 mL/sec for a total of 30 mL. Abdominal aortogram performed in AP @ 10 mL/sec for a total of 30 mL. digital subtraction. Destination sheath advanced to the popliteal area. second glidewire is inserted into the Seeker- Seeker and wire advanced to iliac. glidewire out of Seeker and hand injection performed. Seeker out over glidewire. lower glide wire removed out. used a snare to capture upper glidewire and brought end out the pedal sheath. inserting the Seeker onto wire at the pedal end. Viper wire inserted - ortega inserted over wire. orbital atherectomy performed right SFA by Dr. Delong. ortega removed balloon inserted. Inflation number : 1 A AB Ambia 35 ANALYTICAL DATA MINER Catheter [id number] was prepped and advanced across the Superficial Femoral, Right , then inflated to 8 CHAD for 1:09 seconds. Inflation number: 2 The AB Ambia 35 ANALYTICAL DATA MINER Catheter [id number] was reinflated across the Superficial Femoral, Right, to 8 CHAD for 1:02 seconds. balloon out. Inflation number : 3 A BARD 6FR Lutinox [id number] drug coated balloon was prepped and advanced across the Superficial Femoral, Right , then inflated to 6 CHAD for 1:04 seconds. Inflation number: 4 The BARD 6FR Lutinox [id number] drug coated balloon was reinflated across the Superficial Femoral, Right, to 6 CHAD for 1:01 seconds. 8ml for a total 40ml injection performed to check results. pulling sheath back to bifurcation to take a picture of left side. inserting stent. Inflation Number : 1 A AB OMNILINK STENT [id number] -Lot Number# [id number] exp 01-31-2022 was prepped and advanced across the Undefined1. The stent was deployed at 12 CHAD for 0:32 seconds. stent balloon out and results checked. wire out. TR band placed. Hemostasis obtained. Post Procedure: Pulses reassessed and unchanged. PERRLA. Strong, equal hand rn documentation specialist bilaterally. No VTE prophylaxis required. Medication's Wasted: Nitro = 49.6 mL. Medication's Wasted: Heparin = 2000 units. Total IV fluids: 300 mL. Fluoro: 60:05. Contrast type used: Visipaque 320 mgI/mL, 500 mL bottle. [id number]. PCI Indication: severe PAD. Post-op diagnosis: severe PAD. pedal sheath removed and bands deployed. Complications: none. Estimated blood loss: 5mL-10mL. Procedure completed. Patient transferred by bed to ICU. Procedure Medications Start: 8:05 AM Stop: 8:05 AM Medication: Fentanyl Amount: 25 mcg Start: 8:14 AM Stop: 8:14 AM Medication: Versed Amount: 2 mg Route: I.V. Start: 8:54 AM Stop: 8:54 AM Medication: Fentanyl Amount: 50 mcg Route: I.V. Start: 8:55 AM Stop: 8:55 AM Medication: Versed Amount: 1 mg Route: I.V. Start: 9:36 AM Stop: 9:36 AM Medication: Versed 1 mg and Fentanyl 25 mcg Amount: 1 Route: I.V. Start: 9:52 AM Stop: 9:52 AM Medication: Fentanyl Amount: 50 mcg Route: I.V. Start: 9:54 AM Stop: 9:54 AM Medication: Versed Amount: 1 mg Route: I.V. Start: 10:03 AM Stop: 10:03 AM Medication: Heparin Amount: 5000 units Route: I.V. Start: 10:15 AM Stop: 10:15 AM Medication: Versed Amount: 1 mg Route: I.V. Start: 10:15 AM Stop: 10:15 AM Medication: Fentanyl Amount: 50 mcg Route: I.V. Start: 10:36 AM Stop: 10:36 AM Medication: Versed Amount: 2 mg Route: I.V. Start: 10:43 AM Stop: 10:43 AM Medication: Heparin Amount: 4000 units Route: I.V. Start: 11:07 AM Stop: 11:07 AM Medication: Nitrogylcerin Amount: 400 mcg Route: I.A. I, the attending physician, have reviewed and verified all procedure medications. Yes, all medications given per verbal order History/Risk Factors Hypertension: Yes Dyslipidemia: Yes Peripheral Arterial Disease (PAD): Yes Myocardial Infarction (HI): No Obesity: Yes Tobacco Use: Current/Recent(w/in 1 year) Prior Interventions PCI: No Valve Surgery: No Report Signatures Finalized by:Amparo Delong MD on 09/11/2019 7:02:01 PM
--- NOTE | 2019-08-22 | USCV_ITS ---
Cecilio Díaz Age: 68 Gender: M : 1950 Exam Date: 08/22/2019 13:15 Ordering Phys: Amparo Delong MD Technologist: Exam Location: Indication: Findings GUIDANCE PROVIDED IN ANALYTICAL LEAD TO DR. DELONG The dorsalis pedis artery was documented by B-mode examination Conclusions The dorsalis pedis artery was identified by B-mode examination Dr Izzy De Leon MD FAC (Electronically Signed) Final Date: 22 August 2019 15:24 S
[2019-08-22] MEDS: linezolid premix 600 MG/300 ML PREMIX 300 MG IV ×2 (00:50→12:46)
[2019-08-22] MEDS: heparin 5,000 unit/mL INJ 1 mL 5000 UNIT SUBCUT ×2 (00:50→17:12)
[2019-08-22] MEDS: sodium chloride 0.9% 1,000 ML 50 ML IV (00:51)
[2019-08-22] MEDS: diphenhydrAMINE 50 mg Capsule PO (05:57)
[2019-08-22 06:19] LABS: Basophils % 0.1 %; Eosinophils # 0.3 10^3/uL (0.0-0.8); Eosinophils % 4.1 %; Hematocrit 32.6 % (42.0-52.0); Hemoglobin 10.3 g/dL (11.7-16.6); Lymphocytes # 1.1 10^3/uL (0.8-4.8); Lymphocytes % 15.3 %; Mean Corpuscular HGB Conc 31.6 g/dL (30.0-36.0); Mean Corpuscular Hemoglobin 28.9 pg (28.0-34.0); Mean Corpuscular Volume 91.6 fL (80-94); Monocytes # 0.8 10^3/uL (0.2-0.9); Monocytes % 10.4 %; Neutrophils % 69.5 %; Nucleated Red Blood Cells % 0 %; Platelet Count 256 10^3/cmm (130-400); Red Blood Count 3.56 10^6/uL (4.1-5.3); White Blood Count 7.2 10^3/uL (4.0-10.0)
[2019-08-22 06:42] LABS: Anion Gap 16.1 (5-19); Blood Urea Nitrogen 14 mg/dL (8-23); Calcium 8.7 mg/dL (8.5-10.5); Carbon Dioxide 25 mmol/L (22-29); Chloride 101 mmol/L (98-107); Glomerular Filtration Rate 60.2 mL/min (90-130); Glucose 140 mg/dL (65-115); Osmolality Calculated 285 mOsm/kg (285-295); Potassium 4.1 mmol/L (3.5-5.1); Sodium 138 mmol/L (136-145)
[2019-08-22 06:51] LABS: Glucose Point of Care 149 mg/dL (70-110)
--- NOTE | 2019-08-22 09:18 | PC.SOCIAL ---
IMM Update Unable to review pg 2 of IMM with patient, he is off unit for procedure. Copy left at bedside.
--- NOTE | 2019-08-22 10:13 | PM.PN ---
Subjective Subjective: Interval history: Patient in cath lab manager today for attempted revascularization s/p placement of R sided stent with good distal flow. Seen post procedure, no immediate complications.Feels well currently, no complaints at this time , Medications: Reviewed: Yes Vitals/I&O/Wt Last Vital Signs Temp 97.8 F 08/22/19 04:00 Pulse 90 08/22/19 04:00 Resp 18 08/22/19 04:00 BP 99/60 08/22/19 04:00 Pulse Ox 92 08/22/19 04:00 08/21/19 08/22/19 08/22/19 22:59 06:59 14:59 Intake Total 520 / 920 1100 / 2020 Output Total 2150 / 3950 Balance 520 / -880 -1050 / -1930 Physical Exam Narrative: EXAM NARRATIVE: GEN: Awake, alert, no acute distress CVS: S1S2 N RS: CTA B/L except crackles over RUL Abd: Soft, nt/nd , bs+ WELDER SETTER RESISTANCE MACHINE: no focal neuro deficits Ext: RLE dressing in place, toes with necrotic appearance Urinary Catheter Management^: 2-way Urethral: Cath Placed During This Visit: yes Reason for Continuing Indwelling Catheter: Assist healing open wound Urinary Catheter Date of Insertion: 08/19/19 Urinary Catheter Time of Insertion: 19:17 Data : 08/22/19 05:46 08/22/19 05:46 A&P Assessment and plan (1) Cellulitis of right lower extremity: Continue linezolid, imipenem(based on last culture of Pseudomonas resistant to Zosyn, fluoroquinolone) Surgery following, planned for debridement in OR tomorrow Hold on Plavix for now pending OR Status: Acute (2) Status post amputation of great toe: Surgery consultation Status: Acute (3) Superficial thrombophlebitis of right upper extremity: PICC line was removed in the emergency department At this point as it is superficial, will monitor but do not suspect full dose or long-term anticoagulation will be needed. Status: Acute Additional A&P Information Peripheral vascular disease. s/p stenting today. Start Plavix after surgical debridement of foot in am. Urinary retention. Yesterday I was called secondary to patient's urinary retention. Catheter was placed. 500 cc residual. Flomax added. Near end of hospital stay could consider removal of catheter, and post void residual. Type 2 diabetes. Sliding scale insulin instituted. Hypertension, continue home medications Depression History of COPD History of tobacco dependency Heparin for DVT prophylaxis Full code Attestations Medical Necessity Statement*: s/p peripheral vascular intervention today, for OR debridement in am Coding Level of Care Code Acute Bottle And Glass Inspector for Nirmala Patel Diagnoses Cellulitis of right lower extremity L03.115 Status post amputation of great toe Z89.419 Superficial thrombophlebitis of right upper extremity I80.8
[2019-08-22] MEDS: sodium chloride 0.9% 1,000 ML 100 ML IV (12:27)
[2019-08-22 12:34] LABS: Glucose Point of Care 204 mg/dL (70-110)
--- NOTE | 2019-08-22 15:33 | P.PN_ITS ---
Subjective Subjective: Interval history: Overall patient feels well Unsuccessful angioplasty and stent placement per Dr. Delong cardiac services today successful reperfusion of the right lower extremity Vitals/I&O/Wt Last Vital Signs Temp 98.0 F 08/22/19 11:59 Pulse 78 08/22/19 12:45 Resp 18 08/22/19 12:45 BP 109/67 08/22/19 12:45 Pulse Ox 93 08/22/19 12:45 08/22/19 08/22/19 08/22/19 06:59 14:59 22:59 Intake Total 1400 / 2320 360 / 360 Output Total 2150 / 3950 Balance -750 / -1630 360 / 360 Physical Exam Narrative: EXAM NARRATIVE: Patient is conscious alert oriented X3 BMI 49 Head and neck examination PERRLA no masses no cervical lymphadenopathy no jaundice Right lower extremity wound shows residual necrotic tissues/warm foot with good capillary refill. Packing was done by me bedside in the form of wet-to-dry 4 x 4 gauze followed by STEPHON and Tristen Urinary Catheter Management^: 2-way Urethral: Cath Placed During This Visit: yes Reason for Continuing Indwelling Catheter: Assist healing open wound Urinary Catheter Date of Insertion: 08/19/19 Urinary Catheter Time of Insertion: 19:17 Data : 08/22/19 05:46 08/22/19 05:46 Micro: Microbiology 08/19/19 16:45 Urine Culture - Final Urine,Clean Catch A&P Assessment and plan (1) Diabetic foot infection: We will plan to take the patient for surgery tomorrow in the form of debridement of right foot wound in the OR I did discuss the case with Dr. Delong And hopefully with the episcopal of the blood flow it will help in the process of healing of the wound and avoid the patient below the knee amputation. I did discuss with the patient and agree to proceed accordingly Informed consent per chart Meanwhile twice daily wet-to-dry dressing change followed by STEPHON and Tristen Nonweightbearing right forefoot We will continue coordinating with Status: Acute Attestations Medical Necessity Statement*: Medical necessity care is expected to cross 2 midnights Time Spent in Patient Care: 16 - 35 minutes (>than 50% of time spent in counselling and/or direct pt care on unit) . Coding Level of Care Code Acute Systems Developer for [facility] Fwd Diagnoses Diabetic foot infection E11.628; L08.9
[2019-08-22] MEDS: metoprolol tartrate 25 mg Tablet PO (17:12)
[2019-08-22] MEDS: dicyclomine 10 mg Capsule PO ×2 (17:12→21:22)
[2019-08-22] MEDS: nystatin powder 15 gm Btl 1 APPLIC TOPICAL ×2 (17:13)
[2019-08-22] MEDS: sodium hypochlorite 0.25% Btl 473 mL 1 APPLIC TOPICAL (17:14)
--- NOTE | 2019-08-22 17:23 | PM.PN ---
Subjective Subjective: Interval history: Status post peripheral angiogram through right radial and anterior tibial approach external iliac Treated with [id number] stent While SFA was treated with Orbital CSI atherectomy using 2.0 bur followed by drug-coated and non-drug coated balloon , Excellent angiographic result with good flow through external iliac, SFA and below the knee three-vessel runoff noted. Anterior posterior tibial artery were dopplerable at the end of peripheral angiogram/intervention Medications: Reviewed: Yes Vitals/I&O/Wt Last Vital Signs Temp 98.0 F 08/22/19 11:59 Pulse 74 08/22/19 16:00 Resp 18 08/22/19 16:00 BP 138/74 08/22/19 16:00 Pulse Ox 92 08/22/19 13:30 08/22/19 08/22/19 08/22/19 06:59 14:59 22:59 Intake Total 1500 / 2420 360 / 360 Output Total 2150 / 3950 Balance -650 / -1530 360 / 360 Physical Exam Narrative: EXAM NARRATIVE: GENERAL: Patient is alert, awake and oriented x3. NECK: No jugular vein distension. ABDOMEN: Soft, nontender and nondistended. Positive bowel sounds. No guarding, rebound or tenderness. EXTREMITIES: Right leg swollen, warm, right foot bandaged no significant dopplerable 19 posterior tibial pulse noted Urinary Catheter Management^: 2-way Urethral: Cath Placed During This Visit: yes Reason for Continuing Indwelling Catheter: Assist healing open wound Urinary Catheter Date of Insertion: 08/19/19 Urinary Catheter Time of Insertion: 19:17 Data : 08/22/19 05:46 08/22/19 05:46 Micro: Microbiology 08/19/19 16:45 Urine Culture - Final Urine,Clean Catch A&P Assessment and plan (1) Critical lower limb ischemia: Patient has limb threatening ischemia. Continue IV antibiotic, continue IV fluid since patient has chronic renal failure baseline creatinine is 1.5-2.0. I have discussed with the patient in detail he would like to proceed with peripheral angiogram and revascularization if indicated. Patient understands risk for contrast-induced nephropathy short-term and permanent renal failure secondary to peripheral angiogram. He also has groin fungus we will treat with nystatin powder. Today we tried to intervene through left common femoral artery which appeared to be occluded as we were not able to cross with a wire . We are planning to perform CTA post to assess the degree of blockages and decide regarding what anaphylaxis we can perform either radial tibial or antegrade right leg approach, we'll ask for CTA. We are planning to bring his creatinine further down today has improved to 1.4 IV continues to infused with IV fluid 100 mL per hour for next 24 hours. On today's visit dated 08/21/2019, patient is status post CTA with runoff, Patient yesterday underwent unsuccessful attempt to revascularize. From the left common iliac were not able to cross with a wire as it appeared to be occluded. CTA was performed today which showed severe left external disease of the same time severe right common, external, superficial femoral arteryalong with tibioperoneal trunk and below the knee disease. We are planning to proceed with peripheral angiogram tomorrow from Right groin approach as left side is almost occluded and cannot be used for access. On today's visit dated 08/22/19 Status post peripheral angiogram through right radial and anterior tibial approach external iliac treated with [id number] stent While SFA was treated with Orbital CSI atherectomy using 2.0 bur followed by drug-coated and non-drug coated balloon , Excellent angiographic result with good flow through external iliac, SFA and below the knee three-vessel runoff noted. Anterior posterior tibial artery were dopplerable at the end of peripheral angiogram/intervention. Patient will be undergoing right foot debridement by tomorrow. After that we will start patient on Plavix. Status: Acute (2) Cellulitis of right lower extremity: Continue antibiotics Status: Acute (3) CKD (chronic kidney disease), stage III: Creatinine 1.2 back to normal. Continue IV fluids Status: Acute Attestations Medical Necessity Statement*: Patient regarding continuation hospitalization for above defined care Coding Level of Care Code Established Pt Acute Clinic Physician Director for g Fwd Patient Type Established History Expanded Problem Focused Exam Expanded Problem Focused Medical Decision Making Moderate Complexity Diagnoses Critical lower limb ischemia I99.8 Cellulitis of right lower extremity L03.115 CKD (chronic kidney disease), stage III N18.3
[2019-08-22 17:28] LABS: Glucose Point of Care 246 mg/dL (70-110)
[2019-08-22 20:45] LABS: Glucose Point of Care 232 mg/dL (70-110)
[2019-08-22] MEDS: insulin glargine 100 units/1 mL 13 UNIT SUBCUT (21:22)
[2019-08-23] VITALS (15 sets, daily range): BP systolic 97–164; BP diastolic 50–76; PULSE 70–88; RESP 16–28; TEMP 36.2–37.1; O2SAT 89–97
[2019-08-23] MEDS: heparin 5,000 unit/mL INJ 1 mL 5000 UNIT SUBCUT ×2 (01:00→08:41)
[2019-08-23] MEDS: linezolid premix 600 MG/300 ML PREMIX 300 MG IV ×2 (01:01→15:59)
[2019-08-23 04:06] LABS: Basophils % 0.3 %; Eosinophils # 0.3 10^3/uL (0.0-0.8); Eosinophils % 3.5 %; Hemoglobin 10.3 g/dL (11.7-16.6); Lymphocytes # 1.1 10^3/uL (0.8-4.8); Lymphocytes % 13.2 %; Mean Corpuscular HGB Conc 31.2 g/dL (30.0-36.0); Mean Corpuscular Hemoglobin 28.3 pg (28.0-34.0); Mean Corpuscular Volume 90.7 fL (80-94); Mean Platelet Volume 9.7 fL (7.4-10.4); Monocytes # 0.8 10^3/uL (0.2-0.9); Monocytes % 10.3 %; Neutrophils # 5.8 10^3/uL (1.8-7.7); Neutrophils % 72.6 %; Nucleated Red Blood Cells % 0 %; Platelet Count 230 10^3/cmm (130-400); Red Blood Count 3.64 10^6/uL (4.1-5.3); Red Cell Distribution Width 15.2 % (12.1-15.1)
[2019-08-23 04:28] LABS: Blood Urea Nitrogen 12 mg/dL (8-23); Calcium 8.5 mg/dL (8.5-10.5); Carbon Dioxide 23 mmol/L (22-29); Chloride 100 mmol/L (98-107); Glomerular Filtration Rate 54.9 mL/min (90-130); Glucose 110 mg/dL (65-115); Osmolality Calculated 275 mOsm/kg (285-295); Sodium 134 mmol/L (136-145)
[2019-08-23 06:22] LABS: Glucose Point of Care 115 mg/dL (70-110)
[2019-08-23] MEDS: fluoxetine 20 mg Capsule PO (08:40)
[2019-08-23] MEDS: dicyclomine 10 mg Capsule PO ×2 (08:40→20:56)
[2019-08-23] MEDS: metoprolol tartrate 25 mg Tablet PO ×2 (08:40→17:34)
[2019-08-23] MEDS: sodium chloride 0.9% 1,000 ML 100 ML IV ×3 (08:41→17:39)
[2019-08-23] MEDS: nystatin powder 15 gm Btl 1 APPLIC TOPICAL ×4 (08:42→17:35)
[2019-08-23] MEDS: tamsulosin 0.4 mg Capsule PO (08:42)
[2019-08-23] MEDS: sodium hypochlorite 0.25% Btl 473 mL 1 APPLIC TOPICAL ×2 (08:42→17:35)
[2019-08-23 12:07] LABS: Glucose Point of Care 132 mg/dL (70-110)
--- NOTE | 2019-08-23 13:09 | ANES.PREANE2 ---
Pre-Anesthetic Assessment Pre-Anesthetic Assessment: Height/Weight: Height 1.6 m Weight 122.47 kg Temp Pulse Resp BP Pulse Ox 97.4 F L 74 18 119/61 95 08/23/19 11:55 08/23/19 11:55 08/23/19 11:55 08/23/19 11:55 08/23/19 11:55 Preop Diagnosis: Right diabetic foot infection Proposed Procedure: Operation Date: 08/20/19 10:00 Proposed Procedures p Peripheral Diagnostic(Right) - Amparo Delong MD Operation Date: 08/22/19 07:00 Proposed Procedures p Peripheral Intervention(Not Applicable) - Amparo Delong MD Operation Date: 08/23/19 13:25 Proposed Procedures p Debridement(Right) - Pancho Smith MD Social: Social History: Tobacco (quit 2004) and No alcohol Exam: Pre-Anes Outpt Exam: alert, oriented x 3, clear to auscultation bilaterally (course bilat) and regular rate & rhythm Airway: Submandibular: WNL Cervical ROM: WNL MP: 2 Dentition: False (upper and lower) History/ROS: No significant history except as noted Pulmonary: Pulmonary: COPD, Cough and AGUILAR CV/HEM: CV/HEM: HTN : : Chronic renal Insufficiency (stage III) Hepatic: Hepatic: None reported GI: GI: None reported Metabolic: Metabolic: DM, Hyperlipidemia and Morbid obesity Musc/skel: Musc/skel: OA/DJD Neuropsych: Neuropsych: Neuropathy (diabetic) Anesthetic Plan: ASA status: 3 Anesthesia: Anesthesia Evaluation and General Risk of > 500 ml blood loss (7ml/kg in children): No Meds/Allergies Current Medications: Current Medications Generic Name Dose Route Start Last Admin Trade Name Freq PRN Reason Stop Dose Admin Albuterol Sulfate 1 puff 08/19/19 13:56 08/20/19 15:56 Ventolin INHALATION 1 puff QID PRN Administration Shortness Of [place] th Dicyclomine HCl 10 mg 08/20/19 15:00 08/23/19 08:40 Bentyl PO 10 mg TID ESTHER Administration Fluoxetine HCl 20 mg 08/20/19 09:00 08/23/19 08:40 Prozac PO 20 mg DAILY ESTHER Administration Heparin Sodium (Be ef Lung) 5,000 unit 08/21/19 08:00 08/23/19 08:41 Heparin SUBCUT 5,000 unit Q8H ESTHER Administration Imipenem/Cilastati n Sodium 500 100 mls @ 200 mls /hr 08/19/19 15:30 08/23/19 09:10 mg/ Sodium Chlor cuong IV Infused Q6H ESTHER Infusion Protocol Linezolid 600 mg in 300 mls @ 300 mls/hr 08/20/19 00:30 08/23/19 07:11 Zyvox Premix IV Infused Q12H ESTHER Infusion Protocol Sodium Chloride 1,000 mls @ 100 m ls/hr 08/21/19 14:00 08/23/19 05:16 Sodium Chloride 0.9% IV Not Given .Q10H ESTHER Sodium Chloride 1,000 mls @ 100 m ls/hr 08/22/19 11:45 08/23/19 08:41 Sodium Chloride 0.9% IV 100 mls/hr .Q10H ESTHER Administration Insulin Aspart 0 unit 08/19/19 18:00 08/23/19 12:24 Novolog SUBCUT Not Given TIDWM ESTHER Protocol Insulin Aspart 0 unit 08/19/19 21:00 08/22/19 21:22 Novolog SUBCUT 4 unit BEDTIME ESTHER Administration Protocol Insulin Glargine 13 unit 08/20/19 21:00 08/22/19 21:22 Lantus SUBCUT 13 unit BEDTIME ESTHER Administration Metoprolol Tartrat e 25 mg 08/19/19 18:00 08/23/19 08:40 Lopressor PO 25 mg BID ESTHER Administration Nystatin 1 applic 08/19/19 18:00 08/23/19 08:42 Nystatin Powder TOPICAL 1 applic BID ESTHER Administration Nystatin 1 applic 08/20/19 18:00 08/23/19 08:42 Nystatin Powder TOPICAL 1 applic BID ESTHER Administration Fluticasone/Salmet denise 1 puff 08/19/19 18:00 08/23/19 08:21 Advair Diskus 50 0-50 INHALATION 1 puff BID ESTHER Administration Sodium Hypochlorit e 1 applic 08/20/19 18:00 08/23/19 08:[address] ength TOPICAL 1 applic BID ESTHER Administration Tamsulosin HCl 0.4 mg 08/20/19 10:15 08/23/19 08:42 Flomax PO 0.4 mg DAILY ESTHER Administration PFSH Anesthesia PFSH: Medical History CKD (chronic kidney disease), stage III COPD (chronic obstructive pulmonary disease) Depression Diabetes HTN (hypertension) Smoking addiction Surgical History Status post amputation of great toe Family History Other Healthy adult Social History Smoking and tobacco status: former smoker Alcohol intake: never Lives independently: Yes Household members: none Marital status: Single Current occupational status: retired Data Anesthesia CBC & Chem 7: 08/23/19 03:43 08/23/19 03:43 Other Labs: Laboratory Results - last 48 hr 08/21/19 08/21/19 08/22/19 16:27 21:23 05:46 WBC 7.2 RBC 3.56 L Hgb 10.3 L Hct 32.6 L MCV 91.6 MCH 28.9 MCHC 31.6 RDW 15.0 Plt Count 256 MPV 10.0 Neut % (Auto) 69.5 Lymph % (Auto) 15.3 [place] % (Auto) 10.4 Eos % (Auto) 4.1 Baso % (Auto) 0.1 Neut # (Auto) 5.0 Lymph # (Auto) 1.1 [place] # (Auto) 0.8 Eos # (Auto) 0.3 Baso # (Auto) 0.0 Nucleated RBC % (auto) 0 Nucleated RBCs # 0.0 Sodium Potassium Chloride Carbon Dioxide Anion Gap BUN Creatinine GFR Calculation Glucose POC Glucose 135 232 Calculated Osmolality Calcium 08/22/19 08/22/19 08/22/19 05:46 06:31 12:30 WBC RBC Hgb Hct MCV MCH MCHC RDW Plt Count MPV Neut % (Auto) Lymph % (Auto) [place] % (Auto) Eos % (Auto) Baso % (Auto) Neut # (Auto) Lymph # (Auto) [place] # (Auto) Eos # (Auto) Baso # (Auto) Nucleated RBC % (auto) Nucleated RBCs # Sodium 138 Potassium 4.1 Chloride 101 Carbon Dioxide 25 Anion Gap 16.1 BUN 14 Creatinine 1.2 GFR Calculation 60.2 L Glucose 140 H POC Glucose 149 204 Calculated Osmolality 285 Calcium 8.7 08/22/19 08/22/19 08/23/19 17:23 20:41 03:43 WBC 8.0 RBC 3.64 L Hgb 10.3 L Hct 33.0 L MCV 90.7 MCH 28.3 MCHC 31.2 RDW 15.2 H Plt Count 230 MPV 9.7 Neut % (Auto) 72.6 Lymph % (Auto) 13.2 [place] % (Auto) 10.3 Eos % (Auto) 3.5 Baso % (Auto) 0.3 Neut # (Auto) 5.8 Lymph # (Auto) 1.1 [place] # (Auto) 0.8 Eos # (Auto) 0.3 Baso # (Auto) 0.0 Nucleated RBC % (auto) 0 Nucleated RBCs # 0.0 Sodium Potassium Chloride Carbon Dioxide Anion Gap BUN Creatinine GFR Calculation Glucose POC Glucose 246 232 Calculated Osmolality Calcium 08/23/19 08/23/19 08/23/19 03:43 06:18 11:57 WBC RBC Hgb Hct MCV MCH MCHC RDW Plt Count MPV Neut % (Auto) Lymph % (Auto) [place] % (Auto) Eos % (Auto) Baso % (Auto) Neut # (Auto) Lymph # (Auto) [place] # (Auto) Eos # (Auto) Baso # (Auto) Nucleated RBC % (auto) Nucleated RBCs # Sodium 134 L Potassium 4.0 Chloride 100 Carbon Dioxide 23 Anion Gap 15.0 BUN 12 Creatinine 1.3 H GFR Calculation 54.9 L Glucose 110 POC Glucose 115 132 Calculated Osmolality 275 L Calcium 8.5 Micro: Microbiology 08/19/19 16:45 Urine Culture - Final Urine,Clean Catch Cardiac Studies: No Data to Display
--- NOTE | 2019-08-23 13:19 | PM.PN ---
Subjective Subjective: Interval history: No acute events overnight Vitals/I&O/Wt Last Vital Signs Temp 97.4 F L 08/23/19 11:55 Pulse 74 08/23/19 11:55 Resp 18 08/23/19 11:55 BP 119/61 08/23/19 11:55 Pulse Ox 95 08/23/19 11:55 08/22/19 08/23/19 08/23/19 22:59 06:59 14:59 Intake Total 1400 / 2060 620 / 2680 500 / 500 Output Total 3500 / 3500 1050 / 4550 Balance -2100 / -1440 -430 / -1870 500 / 500 Physical Exam Narrative: EXAM NARRATIVE: Patient is conscious alert oriented X3 BMI 49 Head and neck examination PERRLA no masses no cervical lymphadenopathy no jaundice Extremities no cyanosis no clubbing no edema Dressing in place stable Urinary Catheter Management^: 2-way Urethral: Cath Placed During This Visit: yes Reason for Continuing Indwelling Catheter: Other Urinary Catheter Date of Insertion: 08/19/19 Urinary Catheter Time of Insertion: 19:17 Data : 08/23/19 03:43 08/23/19 03:43 Micro: Microbiology 08/19/19 16:45 Urine Culture - Final Urine,Clean Catch A&P Assessment and plan (1) Diabetic foot infection: We will plan to take the patient for surgery today in the form of debridement of right foot wound in the OR Informed consent per chart We will continue coordinating with Status: Acute Attestations Medical Necessity Statement*: Medical necessity care is expected to cross 2 midnights Time Spent in Patient Care: 16 - 35 minutes (>than 50% of time spent in counselling and/or direct pt care on unit). Coding Level of Care Code Acute Digital Media Director for g Fwd Diagnoses Diabetic foot infection E11.628; L08.9
[2019-08-23] MEDS: sodium chloride 0.9% 1,000 ML 30 ML IV (13:45)
--- NOTE | 2019-08-23 14:48 | SUR.PHASEI ---
PT AWAKE ALERT TO PACU WAS MAC ONLY 2 INCH DOV ABD S KERLIX AND SOME BREAKTHRU BLEEDING TO RT HEEL AREA REINFORCED ON ADMIT BY OR NURSE WITH ADDITIONAL ABDS AND KERLIX PT DENIES PAIN AND NAUSEA, PT REQUEST ICE CHIPS VSS.
--- NOTE | 2019-08-23 14:55 | SUR.PHASEI ---
DR GUZMAN AT BEDSIDE AND STATES SITE OK AND JUST REINFORCE NEEDED . PT OK TO GO TO FLOOR PT ALERT TALKATIVE,VSS
--- NOTE | 2019-08-23 15:09 | SUR.PHASEI ---
BEDSIDE DRESSING CHANGE BY DR GUZMAN WITH TECH FELIPE ASSISTING. PT AWAKE ALERT DENIES PAIN WANTS SPRITE TO SIP ON. REPORT CALLED TO FLOOR
--- NOTE | 2019-08-23 15:27 | PM.OP ---
Operative Report Date of procedure: August 23, 2019 Pre-op Diagnosis: Right diabetic foot infection Post-op diagnosis: other (Including the proximal first metatarsal bone) Procedure Done: Debridement of right diabetic foot wound Amputation of the proximal first metatarsal bone and removal of the distal cap of the tarsal bone Implants: Bone wax Specimens removed/disposition: 1-tissues for cultures and sensitivity 2-swabs for cultures and sensitivity 3-bone fragments for culture and sensitivity 4-proximal metatarsal bone for histopathology 5-capsule cap tarsal bone for histopathology Surgeon: Pancho Smith Radio Commentator: paint laboratory technician Amanda Barroso nurse Leann Anesthesia: MAC (computational theory scientist Smart) Estimated blood loss (mL): 10 Condition: stable Disposition: floor Brief History: This is a pleasant 68 years old gentleman well-known to me from the wound care center in previous encounters patient was readmitted to the hospital because of wound dehiscence of right diabetic foot that is post amputation of first metatarsal bone, well known to have poor perfusion of the right lower extremity, eventually the patient undergone cardiac intervention and angioplasty with stent application was done by Dr. Delong. Patient was counseled for further debridement in the OR and obtaining further cultures Informed consent per Procedure: After identifying the patient holding area, the right lower extremity was marked before the procedure by myself, patient was then taken to the operative suite,was placed in supine position,IV antibiotics were given per protocol,IV propofol was infused by the anesthesia provider,prep and drape of the wound region was done under the usual sterile technique. Time-out was done verifying the patient's name/date of /planned procedure and destination after the procedure, all were in agreement. Started by excising the unhealthy necrotic indurated tissues of the wound.Incision was created at the skin level and went all the way down to the Bone level the proximal part of the first metatarsal bone which was already exposed,wound was excised including unhealthy tissues.I did extend the incision cephalad towards the medial arch of the foot to allow further dissection to the healthier part of the distal tarsal bone. Wound measurements: Pre Debridement measurements; 7 x 3 x 2 cm Post-debridement measurement; 10 x 4 x 3.[address] to the bone Sharp Debridement all the way to the healthier tissues At this point I decided to amputate the proximal part of the first metatarsal bone at the proximal healthier level all the way to the distal part of the tarsal bone that was followed by removal of the capsule joint Of the tarsal bone, electric saw was used and followed by manual bone rasp to smooth the edges of the bone. Hemostasis was achieved followed by irrigation using Pulsavac 3 L. The wound bed at this point looks healthier and was appropriate in the field was dry without bleeding, I decided at this point to use 0 Prolene sutures as [id number] to approximate the wound edges cephalad and the rest of the wound was left open for packing with mini Kerlix followed by ABD Kerlix. Patient tolerated the procedure well, count of instruments,needles and sponges were completed at the end of the procedure. And then patient was taken to the recovery area in stable condition. I was present for the whole entire procedure
--- NOTE | 2019-08-23 15:29 | SUR.PHASEI ---
Dr. Smith was notified patient had bled through initial dressing. He removed dressing to evaluate the bleeding. Hand bovie used first, then used sutured the bleeding vessels. Surgicel and bone wax were used. New dressings reapplied per Dr. Smith. Ronni Rodgers RN
[2019-08-23] MEDS: cetylpyridinium Lozenge 1 EACH MUCOUS MEM (16:00)
--- NOTE | 2019-08-23 16:05 | SUR.PHASEI ---
1600 pt awake alert dressing change at bedsidei in progress pt alert denies pain sats down to 88% pt encouraged to deep breath, 2lnc placed and pt quickly up to 95% no distress noted
--- NOTE | 2019-08-23 16:06 | SUR.PHASEI ---
1535 pt alert talkative to floor per caart pt moves with assit to bed dressing d/i pt taking sips o diet soda.
--- NOTE | 2019-08-23 16:19 | PM.PN ---
Subjective Subjective: Interval history: seen prior to OR today. No new complaints, awaiting surgery Now s/p debridement. Post op small bleeder identified and ligated. Medications: Reviewed: Yes Vitals/I&O/Wt Last Vital Signs Temp 97.9 F 08/23/19 16:05 Pulse 80 08/23/19 16:05 Resp 16 08/23/19 16:05 BP 153/70 08/23/19 16:05 Pulse Ox 97 08/23/19 16:05 08/23/19 08/23/19 08/23/19 06:59 14:59 22:59 Intake Total 620 / 2680 550 / 550 Output Total 1050 / 4550 Balance -430 / -1870 550 / 550 Physical Exam Narrative: EXAM NARRATIVE: GEN: Awake, alert, no acute distress CVS: S1S2 N RS: CTA B/L Abd: Soft, nt/nd , bs+ OCEANOGRAPHER GEOLOGICAL: no focal neuro deficits Urinary Catheter Management^: 2-way Urethral: Cath Placed During This Visit: yes Reason for Continuing Indwelling Catheter: Other Urinary Catheter Date of Insertion: 08/19/19 Urinary Catheter Time of Insertion: 19:17 Data : 08/23/19 03:43 08/23/19 03:43 Micro: Microbiology 08/19/19 16:45 Urine Culture - Final Urine,Clean Catch A&P Assessment and plan (1) Cellulitis of right lower extremity: Continue linezolid, imipenem(based on last culture of Pseudomonas resistant to Zosyn, fluoroquinolone) Surgery following, planned for debridement in OR tomorrow Hold on Plavix for now given some bleeding post operatively, will start tomorrow Status: Acute (2) Status post amputation of great toe: Surgery consultation Status: Acute (3) Superficial thrombophlebitis of right upper extremity: PICC line was removed in the emergency department At this point as it is superficial, will monitor but do not suspect full dose or long-term anticoagulation will be needed. Status: Acute Additional A&P Information Peripheral vascular disease. s/p stenting on 08/21. will resume Plavix in am given ron eepost op bleeding locally. Type 2 diabetes. Sliding scale insulin instituted. Hypertension, continue home medications Depression History of COPD History of tobacco dependency Heparin for DVT prophylaxis Full code Attestations Medical Necessity Statement*: s/p OR debridement of foot today, recent PCI to R leg Coding Level of Care Code Acute Mobile Pet Groomer for Chg Fwd Diagnoses Cellulitis of right lower extremity L03.115 Status post amputation of great toe Z89.419 Superficial thrombophlebitis of right upper extremity I80.8
--- NOTE | 2019-08-23 16:31 | PM.PN ---
Subjective Subjective: Interval history: Patient came back for wound debridement. Right leg is wrapped. No overnight event. Medications: Reviewed: Yes Vitals/I&O/Wt Last Vital Signs Temp 97.9 F 08/23/19 16:05 Pulse 80 08/23/19 16:05 Resp 16 08/23/19 16:05 BP 153/70 08/23/19 16:05 Pulse Ox 97 08/23/19 16:05 08/23/19 08/23/19 08/23/19 06:59 14:59 22:59 Intake Total 620 / 2680 550 / 550 Output Total 1050 / 4550 Balance -430 / -1870 550 / 550 Physical Exam Narrative: EXAM NARRATIVE: GENERAL: Patient is alert, awake and oriented x3. NECK: No jugular vein distension. ABDOMEN: Soft, nontender and nondistended. Positive bowel sounds. No guarding, rebound or tenderness. EXTREMITIES: Right leg swollen, warm, right foot bandaged no significant dopplerable 19 posterior tibial pulse noted Urinary Catheter Management^: 2-way Urethral: Cath Placed During This Visit: yes Reason for Continuing Indwelling Catheter: Other Urinary Catheter Date of Insertion: 08/19/19 Urinary Catheter Time of Insertion: 19:17 Data : 08/23/19 03:43 08/23/19 03:43 Micro: Microbiology 08/19/19 16:45 Urine Culture - Final Urine,Clean Catch A&P Assessment and plan (1) Critical lower limb ischemia: Patient has limb threatening ischemia. Continue IV antibiotic, continue IV fluid since patient has chronic renal failure baseline creatinine is 1.5-2.0. I have discussed with the patient in detail he would like to proceed with peripheral angiogram and revascularization if indicated. Patient understands risk for contrast-induced nephropathy short-term and permanent renal failure secondary to peripheral angiogram. He also has groin fungus we will treat with nystatin powder. Today we tried to intervene through left common femoral artery which appeared to be occluded as we were not able to cross with a wire . We are planning to perform CTA post to assess the degree of blockages and decide regarding what anaphylaxis we can perform either radial tibial or antegrade right leg approach, we'll ask for CTA. We are planning to bring his creatinine further down today has improved to 1.4 IV continues to infused with IV fluid 100 mL per hour for next 24 hours. On today's visit dated 08/21/2019, patient is status post CTA with runoff, Patient yesterday underwent unsuccessful attempt to revascularize. From the left common iliac were not able to cross with a wire as it appeared to be occluded. CTA was performed today which showed severe left external disease of the same time severe right common, external, superficial femoral arteryalong with tibioperoneal trunk and below the knee disease. We are planning to proceed with peripheral angiogram tomorrow from Right groin approach as left side is almost occluded and cannot be used for access. On today's visit dated 08/22/19 Status post peripheral angiogram through right radial and anterior tibial approach external iliac treated with [id number] stent While SFA was treated with Orbital CSI atherectomy using 2.0 bur followed by drug-coated and non-drug coated balloon , Excellent angiographic result with good flow through external iliac, SFA and below the knee three-vessel runoff noted. Anterior posterior tibial artery were dopplerable at the end of peripheral angiogram/intervention. Patient will be undergoing right foot debridement by tomorrow. After that we will start patient on Plavix. On today's visit dated 08/23/2019 patient is post debridement of right foot. I will start him on Plavix. Continue wound care. We will follow-up on him in our clinic. Status: Acute (2) Cellulitis of right lower extremity: Continue antibiotics Status: Acute (3) CKD (chronic kidney disease), stage III: Creatinine 1.2 back to normal. Continue IV fluids Status: Acute Attestations Medical Necessity Statement*: Aspirate medicine Coding Level of Care Code Established Pt Acute Proctologist for [facility] Fwkhalida Patient Type Established History Expanded Problem Focused Exam Expanded Problem Focused Medical Decision Making Moderate Complexity Diagnoses Critical lower limb ischemia I99.8 Cellulitis of right lower extremity L03.115 CKD (chronic kidney disease), stage III N18.3
[2019-08-23 17:18] LABS: Glucose Point of Care 152 mg/dL (70-110)
[2019-08-23 17:57] LABS: Glucose Point of Care 178 mg/dL (70-110)
[2019-08-23 20:47] LABS: Glucose Point of Care 193 mg/dL (70-110)
[2019-08-23] MEDS: insulin glargine 100 units/1 mL 13 UNIT SUBCUT (20:58)
--- NOTE | 2019-08-23 21:28 | PC.NURSE ---
CHANELL BANDAGE WAS CHANGED D/T IT BEING SOILED WITH BM. NOTHING ELSE WAS CHANGED. WILL CONTINUE TO MONITOR.
[2019-08-24] VITALS (10 sets, daily range): BP systolic 94–154; BP diastolic 51–79; PULSE 47–79; RESP 16–20; TEMP 36.7–37.5; O2SAT 91–99
[2019-08-24] MEDS: linezolid premix 600 MG/300 ML PREMIX 300 MG IV ×3 (01:24→23:33)
[2019-08-24] MEDS: sodium chloride 0.9% 1,000 ML 100 ML IV ×4 (01:24→23:33)
[2019-08-24 03:16] LABS: Basophils % 0.2 %; Eosinophils # 0.2 10^3/uL (0.0-0.8); Eosinophils % 2.7 %; Hematocrit 29.3 % (42.0-52.0); Hemoglobin 9.1 g/dL (11.7-16.6); Lymphocytes # 0.8 10^3/uL (0.8-4.8); Lymphocytes % 10.2 %; Mean Corpuscular HGB Conc 31.1 g/dL (30.0-36.0); Mean Corpuscular Hemoglobin 28.2 pg (28.0-34.0); Mean Corpuscular Volume 90.7 fL (80-94); Mean Platelet Volume 10.2 fL (7.4-10.4); Monocytes # 0.8 10^3/uL (0.2-0.9); Monocytes % 10.4 %; Neutrophils # 6.1 10^3/uL (1.8-7.7); Neutrophils % 76.1 %; Nucleated Red Blood Cells % 0 %; Platelet Count 218 10^3/cmm (130-400); Red Blood Count 3.23 10^6/uL (4.1-5.3); Red Cell Distribution Width 15.2 % (12.1-15.1)
[2019-08-24 03:28] LABS: Alanine Aminotransferase 7 U/L (0-41); Albumin Level 2.5 g/dL (3.5-5.2); Alkaline Phosphatase 68 IU/L (40-130); Anion Gap 13.1 (5-19); Aspartate Amino Transferase 28 U/L (0-40); Blood Urea Nitrogen 12 mg/dL (8-23); Calcium 8.3 mg/dL (8.5-10.5); Carbon Dioxide 24 mmol/L (22-29); Chloride 99 mmol/L (98-107); Glomerular Filtration Rate 60.2 mL/min (90-130); Glucose 197 mg/dL (65-115); Osmolality Calculated 276 mOsm/kg (285-295); Potassium 4.1 mmol/L (3.5-5.1); Sodium 132 mmol/L (136-145); Total Bilirubin 0.3 mg/dL (0.15-1.2); Total Protein 6.5 g/dL (6.6-8.7)
[2019-08-24 06:05] LABS: Glucose Point of Care 167 mg/dL (70-110)
--- NOTE | 2019-08-24 06:33 | P.PN_ITS ---
Subjective Subjective: Interval history: Overall patient is doing well and no acute events overnight Postoperatively: Patient postoperatively the PACU area yesterday started to have sanguinous soa monalisa of the dressing, which I had to take down and there was oozing from one of the veins, figure of 8 Vicryl sutures were applied for hemostasis and bone wax was applied onto the tarsal bone,followed by application of 2 pieces of Surgicel application and then by packing with 4 x 4, followed by ABD Kerlix and Horace wrap.Then patient was sent to the floor Vitals/I&O/Wt Last Vital Signs Temp 98.4 F 08/24/19 04:00 Pulse 78 08/24/19 04:00 Resp 20 H 08/24/19 04:00 BP 132/60 08/24/19 04:00 Pulse Ox 98 08/24/19 04:00 08/23/19 08/23/19 08/24/19 14:59 22:59 06:59 Intake Total 550 / 550 1536.667 / 2086.667 2038.333 / 4125.000 Output Total 900 / 900 Balance 550 / 550 1536.667 / 2086.667 1138.333 / 3225.000 Physical Exam Narrative: EXAM NARRATIVE: Patient is conscious alert oriented X3 BMI 49 Right foot dressing in place, dry Dopplerable signal elicited of the right dorsalis pedis artery and posterior tibial are that was done in the presence of Dr. Delong. Dressing was taken down by me and wound bed looks clean without evidence of pus mild surrounding cellulitic changes were appreciated, no evidence of bleeding Urinary Catheter Management^: 2-way Urethral: Cath Placed During This Visit: yes Reason for Continuing Indwelling Catheter: Other Urinary Catheter Date of Insertion: 08/19/19 Urinary Catheter Time of Insertion: 19:17 Data : 08/24/19 02:52 08/24/19 02:52 Micro: Microbiology 08/23/19 14:10 Gram Stain - Final Foot - #3 08/23/19 14:10 Gram Stain - Final Foot - #4 A&P Assessment and plan (1) Diabetic foot infection: Once daily wet-to-dry dressing change using 4 x 4 followed by Kerlix and gentle Horace wrap Follow on cultures and sensitivities Can start Plavix from surgical standpoint of view again is going to be risk- benefit Leg elevation when patient lies in bed Nonweightbearing right forefoot Status: Acute Attestations Medical Necessity Statement*: Medical necessity care is expected to cross 2 midnights Time Spent in Patient Care: 16 - 35 minutes (>than 50% of time spent in counselling and/or direct pt care on unit) . Coding Level of Care Code Acute Primer Waterproofing Machine Operator for Nirmala Patel Diagnoses Diabetic foot infection E11.628; L08.9
--- NOTE | 2019-08-24 07:02 | ANE.PACU2 ---
 Inpatient post-anesthesia follow up: Airway intact: Yes Vital signs: Temperature 98.4 F Pulse Rate [Monito r] 69 Pulse Rate 78 Respiratory Rate 20 Blood Pressure [Le ft Arm] 112/59 Blood Pressure 132/60 Pulse Oximetry 98 Oxygen Delivery Me thod Nasal Cannula Oxygen Flow Rate 2 Fraction of Inspir ed Oxygen Hydration adequate: Yes Nausea and vomiting: No Mental status: Baseline
[2019-08-24] MEDS: clopidogrel 75 mg Tablet PO (08:45)
[2019-08-24] MEDS: fluoxetine 20 mg Capsule PO (08:45)
[2019-08-24] MEDS: dicyclomine 10 mg Capsule PO ×3 (08:45→21:36)
[2019-08-24] MEDS: metoprolol tartrate 25 mg Tablet PO ×2 (08:45→18:00)
[2019-08-24] MEDS: tamsulosin 0.4 mg Capsule PO (08:45)
[2019-08-24] MEDS: sodium hypochlorite 0.25% Btl 473 mL 1 APPLIC TOPICAL (08:46)
[2019-08-24] MEDS: nystatin powder 15 gm Btl 1 APPLIC TOPICAL ×2 (08:46)
[2019-08-24] MEDS: HYDROcodone-acetaminophen 5-325 mg Tablet 1 TAB PO (08:52)
[2019-08-24 11:18] LABS: Glucose Point of Care 224 mg/dL (70-110)
--- NOTE | 2019-08-24 12:48 | P.PN_ITS ---
Subjective Subjective: Interval history: Patient continues to have good dopplerable anterior and posterior pulse. He is status post wound debridement and amputation of big toe of the right. Medications: Reviewed: Yes Vitals/I&O/Wt Last Vital Signs Temp 98.2 F 08/24/19 11:18 Pulse 77 08/24/19 11:18 Resp 16 08/24/19 11:18 BP 127/66 08/24/19 11:18 Pulse Ox 91 08/24/19 11:18 08/23/19 08/24/19 08/24/19 22:59 06:59 14:59 Intake Total 1536.667 / 2086.667 2138.333 / 4225.000 340 / 340 Output Total 900 / 900 Balance 1536.667 / 2086.667 1238.333 / 3325.000 340 / 340 Physical Exam Narrative: EXAM NARRATIVE: GENERAL: Patient is alert, awake and oriented x3. NECK: No jugular vein distension. Right foot and leg swollen, warm, good anterior and posterior tibial dopplerable pulses Urinary Catheter Management^: 2-way Urethral: Cath Placed During This Visit: yes Reason for Continuing Indwelling Catheter: Other Urinary Catheter Date of Insertion: 08/19/19 Urinary Catheter Time of Insertion: 19:17 Data : 08/24/19 02:52 08/24/19 02:52 Micro: Microbiology 08/19/19 10:35 Blood Culture - Final Blood NO GROWTH AFTER 5 DAYS 08/19/19 10:40 Blood Culture - Final Blood NO GROWTH AFTER 5 DAYS 08/23/19 14:10 Gram Stain - Final Foot - #3 08/23/19 14:10 Gram Stain - Final Foot - #4 A&P Assessment and plan (1) Critical lower limb ischemia: Patient has limb threatening ischemia. Continue IV antibiotic, continue IV fluid since patient has chronic renal failure baseline creatinine is 1.5-2.0. I have discussed with the patient in detail he would like to proceed with peripheral angiogram and revascularization if indicated. Patient understands risk for contrast-induced nephropathy short-term and permanent renal failure secondary to peripheral angiogram. He also has groin fungus we will treat with nystatin powder. Today we tried to intervene through left common femoral artery which appeared to be occluded as we were not able to cross with a wire . We are planning to perform CTA post to assess the degree of blockages and decide regarding what anaphylaxis we can perform either radial tibial or antegrade right leg approach, we'll ask for CTA. We are planning to bring his creatinine further down today has improved to 1.4 IV continues to infused with IV fluid 100 mL per hour for next 24 hours. On today's visit dated 08/21/2019, patient is status post CTA with runoff, Patient yesterday underwent unsuccessful attempt to revascularize. From the left common iliac were not able to cross with a wire as it appeared to be occluded. CTA was performed today which showed severe left external disease of the same time severe right common, external, superficial femoral arteryalong with tibioperoneal trunk and below the knee disease. We are planning to proceed with peripheral angiogram tomorrow from Right groin approach as left side is a lmost occluded and cannot be used for access. On today's visit dated 08/22/19 Status post peripheral angiogram through right radial and anterior tibial approach external iliac treated with [id number] stent While SFA was treated with Orbital CSI atherectomy using 2.0 bur followed by drug-coated and non-drug coated balloon , Excellent angiographic result with good flow through external iliac, SFA and below the knee three-vessel runoff noted. Anterior posterior tibial artery were dopplerable at the end of peripheral angiogram/intervention. Patient will be undergoing right foot debrid ement by tomorrow. After that we will start patient on Plavix. On today's visit dated 08/23/2019 patient is post debridement of right foot. I will start him on Plavix. Continue wound care. We will follow-up on him in our clinic. On today's visit dated 08/24/2019 patient is doing fine from a vascular perspective. Continues to have good dopplerable anterior and posterior tibial pulses. If okay with surgery will start Plavix for 3 months Status: Acute (2) Cellulitis of right lower extremity: Continue antibiotics Status: Acute (3) CKD (chronic kidney disease), stage III: Stable. Status: Acute Attestations Medical Necessity Statement*: As per medicine and surgery Coding Level of Care Code Established Pt Acute Coke Still Cleaner for Nirmala Fwkhalida Patient Type Established History Expanded Problem Focused Exam Expanded Problem Focused Medical Decision Making Moderate Complexity Diagnoses Critical lower limb ischemia I99.8 Cellulitis of right lower extremity L03.115 CKD (chronic kidney disease), stage III N18.3
[2019-08-24] MEDS: clopidogrel 300 mg Tablet PO (14:01)
--- NOTE | 2019-08-24 14:50 | PM.PN ---
Subjective Subjective: Interval history: No acute events. Patient c/o mild sinus congestion and nasal discharge. No fever. 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: no focal neuro deficits Urinary Catheter Management^: 2-way Urethral: Cath Placed During This Visit: yes Reason for Continuing Indwelling Catheter: Other Urinary Catheter Date of Insertion: 08/19/19 Urinary Catheter Time of Insertion: 19:17 Data : 08/25/19 07:25 08/24/19 02:52 Micro: Microbiology 08/19/19 10:35 Blood Culture - Final Blood NO GROWTH AFTER 5 DAYS 08/19/19 10:40 Blood Culture - Final Blood NO GROWTH AFTER 5 DAYS 08/23/19 14:10 Gram Stain - Final Foot - #3 08/23/19 14:10 Gram Stain - Final Foot - #4 A&P Assessment and plan (1) Diabetic foot infection: Status: Acute (2) CKD (chronic kidney disease), stage III: Status: Acute (3) Critical lower limb ischemia: Status: Acute (4) Cellulitis of right lower extremity: Continue linezolid, imipenem(based on last culture of Pseudomonas resistant to Zosyn, fluoroquinolone) Surgery following, planned for debridement in OR tomorrow Hold on Plavix for now given some bleeding post operatively, will start tomorrow Status: Acute (5) COPD (chronic obstructive pulmonary disease): Status: Acute (6) HTN (hypertension): Status: Acute (7) Diabetes: Status: Acute (8) Peripheral vascular disease: Status: Acute Additional A&P Information # critical limb ischemia : s/p CTA showing severe left external disease of the and severe right common, external, superficial femoral arteryalong with tibioperoneal trunk and below the knee disease. He is s/p peripheral angiogram through right radial and anterior tibial approach external iliac treated with [id number] stent While SFA was treated with Orbital CSI atherectomy and non-drug coated balloon. Started on Plavix # wound dehiscence and necrosis debridement of the unhealthy necrotic indurated tissues of the foot wound. Wound was excised including unhealthy tissues and the dissection was extended until healthy distal tarsal bone was seen. # DM # COPD Heparin for DVT prophylaxis Full code Attestations Medical Necessity Statement*: planned for discharge in the upcoming 24-48 hrs Coding Level of Care Code Acute Activities Specialist for [facility] Fwd Diagnoses Diabetic foot infection E11.628; L08.9 CKD (chronic kidney disease), stage III N18.3 Critical lower limb ischemia I99.8 Cellulitis of right lower extremity L03.115 COPD (chronic obstructive pulmonary disease) J44.9 HTN (hypertension) I10 Diabetes E11.9 Peripheral vascular disease I73.9
[2019-08-24 16:22] LABS: Glucose Point of Care 159 mg/dL (70-110)
[2019-08-24 20:38] LABS: Glucose Point of Care 146 mg/dL (70-110)
[2019-08-24] MEDS: insulin glargine 100 units/1 mL 13 UNIT SUBCUT (20:56)
[2019-08-25] VITALS (8 sets, daily range): BP systolic 98–117; BP diastolic 55–64; PULSE 67–84; RESP 16–20; TEMP 36.7–36.8; O2SAT 92–97
[2019-08-25 06:30] LABS: Glucose Point of Care 129 mg/dL (70-110)
--- NOTE | 2019-08-25 07:29 | PM.PN ---
Subjective Subjective: Interval history: Patient overall feels well No acute events overnight Vitals/I&O/Wt Last Vital Signs Temp 98.3 F 08/25/19 03:57 Pulse 67 08/25/19 03:57 Resp 20 H 08/25/19 03:57 BP 99/61 08/25/19 03:57 Pulse Ox 95 08/25/19 03:57 08/24/19 08/25/19 08/25/19 22:59 06:59 14:59 Intake Total 250 / 1890 953.333 / 2843.333 Output Total 950 / 950 900 / 1850 Balance -700 / 940 53.333 / 993.333 Physical Exam Narrative: EXAM NARRATIVE: Patient is conscious alert oriented X3 BMI 49 Head and neck examination PERRLA no masses no cervical lymphadenopathy no jaundice Right foot wound is clean without evidence of surrounding cellulitis or purulent discharge/foot is warm Packing was done by me bedside with the assistance of the caring nurse in the form of wet-to-dry 4 x 4 followed by ABDs and Horace wrap. Patient had previously 2 pieces of Surgicel that I did apply, before I did remove them today. No evidence of bleeding from the wound bed. Urinary Catheter Management^: 2-way Urethral: Cath Placed During This Visit: yes Reason for Continuing Indwelling Catheter: Other Urinary Catheter Date of Insertion: 08/19/19 Urinary Catheter Time of Insertion: 19:17 Data : 08/25/19 07:25 08/24/19 02:52 Micro: Microbiology 08/19/19 10:35 Blood Culture - Final Blood NO GROWTH AFTER 5 DAYS 08/19/19 10:40 Blood Culture - Final Blood NO GROWTH AFTER 5 DAYS A&P Assessment and plan (1) Diabetic foot infection: Once daily wet-to-dry dressing change using 4 x 4 followed by Kerlix and gentle Horace wrap Follow on cultures and sensitivities Leg elevation when patient lies in bed Nonweightbearing right forefoot Upon discharge patient should follow-up with me at the wound care center. Assurance and education All questions have been answered and all concerns have been addressed to patient's satisfaction. Status: Acute Attestations Medical Necessity Statement*: Medical necessity care is expected to cross 2 midnights Time Spent in Patient Care: 16 - 35 minutes (>than 50% of time spent in counselling and/or direct pt care on unit). Coding Level of Care Code Acute Emerging Solutions Executive for Chg Fwd Diagnoses Diabetic foot infection E11.628; L08.9
[2019-08-25 07:35] LABS: Basophils % 0.2 %; Eosinophils # 0.2 10^3/uL (0.0-0.8); Eosinophils % 2.1 %; Hematocrit 29.7 % (42.0-52.0); Hemoglobin 9.2 g/dL (11.7-16.6); Lymphocytes # 0.9 10^3/uL (0.8-4.8); Mean Corpuscular Hemoglobin 28.2 pg (28.0-34.0); Mean Corpuscular Volume 91.1 fL (80-94); Mean Platelet Volume 9.4 fL (7.4-10.4); Monocytes # 0.7 10^3/uL (0.2-0.9); Monocytes % 7.9 %; Neutrophils % 79.6 %; Nucleated Red Blood Cells % 0 %; Platelet Count 211 10^3/cmm (130-400); Red Blood Count 3.26 10^6/uL (4.1-5.3); Red Cell Distribution Width 15.4 % (12.1-15.1); White Blood Count 8.9 10^3/uL (4.0-10.0)
[2019-08-25] MEDS: albuterol 8 gm MDI 1 PUFF INHALATION ×2 (08:02→13:14)
[2019-08-25] MEDS: tamsulosin 0.4 mg Capsule PO (09:08)
[2019-08-25] MEDS: fluoxetine 20 mg Capsule PO (09:08)
[2019-08-25] MEDS: metoprolol tartrate 25 mg Tablet PO (09:08)
[2019-08-25] MEDS: fluticasone nasal spray 16gm Btl 1 SPRAY NASAL (09:09)
[2019-08-25] MEDS: clopidogrel 75 mg Tablet PO (09:09)
[2019-08-25] MEDS: dicyclomine 10 mg Capsule PO (09:09)
[2019-08-25] MEDS: nystatin powder 15 gm Btl 1 APPLIC TOPICAL (09:10)
[2019-08-25] MEDS: sodium chloride 0.9% 1,000 ML 100 ML IV (09:12)
[2019-08-25 10:53] LABS: Glucose Point of Care 219 mg/dL (70-110)
--- NOTE | 2019-08-25 11:51 | PC.CHAP ---
Pastoral Care Encounter/Spiritual Assessment Type of Contact [] Declined ecology teacher visit [] Patient/Family/Request visit [] Outpatient visit [] Follow-up visit [] Physician referral [] Code/Alert [x] Routine visit [] Staff referral [] Actively dying [] Patient sleeping [] Family support [] [] Out of room [] Palliative care [] [] Receiving care in room [] Pre-surgical visit [] Trauma [] Long length of stay [] ICU visit [] Other: Relational/Emotional Strength [x] Patient feels connected with others/family/visitors/staff [] Distress [] Loneliness/isolation [] Abandonment Spirituality of Patient [x] Person of [place] [] Attends Latter-Day of their [place] [x] Believes in Prayer [] Reads Bible or Pentecostal materials [] There are Spiritual issues to be addressed Security Operations Center Operator Interventions [x] Prayer [x] Active listening [x] Non-anxious presence [x] Spiritual/emotional support [] Crisis/trauma care [] Spiritual counseling [] Bereavement support [] Provided bereavement packet [] Provided Bible/devotional materials [] Provided toy/stuffed animal, coloring book to patient or family member [] Provided Communion [] Anointing/[place] [] Salvation [x] Completed spiritual assessment [] Other: Impact on Illness or Injury [] Angry [] Fearful [] Anxious [] Often cries [] Exhaustion [] Unable to work [] Unable to attend jewish [] Unable to walk/stand [] Unable to read [] Unable to drive [] Unable to eat/drink [] Unable to sleep [] Unable to be with family [] Patient intubated [x] Other: n/a Summary Time spent with patient 5 minutes
--- NOTE | 2019-08-25 12:32 | PM.DCS ---
Discharge Providers Date of Admission: 08/19/19 12:11 Date of Discharge: August 25, 2019 Attending Provider at Admission: Hugo Burden MD Attending Provider at Discharge: Inés Howard MD Diagnoses at Discharge Discharge Diagnosis (1) Diabetic foot infection: Status: Acute (2) CKD (chronic kidney disease), stage III: Status: Acute (3) Critical lower limb ischemia: Status: Acute (4) Cellulitis of right lower extremity: Status: Acute (5) COPD (chronic obstructive pulmonary disease): Status: Acute (6) HTN (hypertension): Status: Acute (7) Diabetes: Status: Acute (8) Peripheral vascular disease: Status: Acute Reason for Visit Reason for Visit: Reason For Visit: RIGHT ARM, RIGHT FOOT PAIN Hospital Course Discharge Summary: 68 years old gentleman who follows with wound care clinic and recent history of toe amputation complicated by wound dehiscence and osteomyelitis s/p ~3 week course of iv antibiotics returned with superficial thrombophelibitis from occluded PICC line and wound dehiscence of right diabetic foot that is post amputation of first metatarsal bone. He was found to have critical limb ischemia with CTA showing severe left external disease of the and severe right common, external, superficial femoral arteryalong with tibioperoneal trunk and below the knee disease. He is s/p peripheral angiogram through right radial and anterior tibial approach external iliac treated with [id number] stent While SFA was treated with Orbital CSI atherectomy and non-drug coated balloon. Excellent angiographic result with good flow through external iliac, SFA and below the knee three-vessel runoff noted. Anterior posterior tibial artery were dopplerable at the end of peripheral angiogram/intervention. Patient then underwent debridement of the unhealthy necrotic indurated tissues of the foot wound. Wound was excised including unhealthy tissues and the dissection was extended until healthy distal tarsal bone was seen. Patient tolerated the procedure well, Hb remained stable. Plavix was restarted next after procedure. He continues to have good pulses on Doppler. He received imipenem and linezolid while in the hospital, these are being discontinued upon discharge as patient has had an extended course of ~one month and more importantly has had resection of unhealthy wounds and removal of osteomyelitic bone. He will continue local wound care and follow up in the wound care clinic. Hopefully with revascularization he will achieve good healing. Physical Exam Narrative: EXAM NARRATIVE: GEN: Awake, alert and oriented, no acute distress CVS: S1S2 N RS: CTA B/L Abd: Soft, nt/nd , bs+ OFFAL WORKER: no focal neuro deficits Urinary Catheter Management^: 2-way Urethral: Cath Placed During This Visit: yes, but has since been removed by the nurse Reason for Continuing Indwelling Catheter: Required Immobilization for Trauma or Surgery or Anesthesia Urinary Catheter Date of Insertion: 08/19/19 Urinary Catheter Time of Insertion: 19:17 Date Urinary Catheter Removed: 08/25/19 Time Urinary Catheter Discontinued: 11:30 Discharge Data Data Completed and Pending: Completed Studies During Hospitalization Category Date Time Status CT angio abd aort a runof 12046 Rout ine Cat Scan 08/21/19 13:37 Completed XR chest 1V shahid ble 29061 Stat Exams 08/19/19 10:23 [place] [address] Rout ine Ultrasound 08/20/19 19:18 Completed CV guide vascular access 07135 Rout ine Ultrasound 08/20/19 Completed CV guide vascular access 31255 Rout ine Ultrasound 08/22/19 [place] [address] Stat Ultrasound 08/19/19 11:01 Completed Pending at discharge Category Date Time Status ANIMAL CHIROPRACTOR request for service Routin e Exams 08/20/19 09:42 Taken ANIMAL CHIROPRACTOR request for service Routin e Exams 08/22/19 07:37 Taken Anaerobic Culture Routine Lab 08/23/19 14:10 Results Tissue Culture an d Gram Stain Routi ne Lab 08/23/19 14:10 Results Tissue Culture an d Gram Stain Routi ne Lab 08/23/19 14:10 Results Wound Culture Rou cinthya Lab 08/23/19 14:10 Results Pathology: Surgic al [PTH] Routine Pth 08/23/19 15:06 Received Labs from last 24 hours 08/25/19 08/25/19 08/25/19 10:50 07:25 06:23 WBC 8.9 RBC 3.26 L Hgb 9.2 L Hct 29.7 L MCV 91.1 MCH 28.2 MCHC 31.0 RDW 15.4 H Plt Count 211 MPV 9.4 Neut % (Auto) 79.6 Lymph % (Auto) 10.0 Benzie % (Auto) 7.9 Eos % (Auto) 2.1 Baso % (Auto) 0.2 Neut # (Auto) 7.0 Lymph # (Auto) 0.9 Benzie # (Auto) 0.7 Eos # (Auto) 0.2 Baso # (Auto) 0.0 Nucleated RBC % (a uto) 0 Nucleated RBCs # 0.0 POC Glucose 219 129 08/24/19 08/24/19 20:27 16:17 WBC RBC Hgb Hct MCV MCH MCHC RDW Plt Count MPV Neut % (Auto) Lymph % (Auto) Benzie % (Auto) Eos % (Auto) Baso % (Auto) Neut # (Auto) Lymph # (Auto) Benzie # (Auto) Eos # (Auto) Baso # (Auto) Nucleated RBC % (a uto) Nucleated RBCs # POC Glucose 146 159 Vitals: Last Vital Signs Temp 98.2 F 08/25/19 11:36 Pulse 74 08/25/19 11:36 Resp 17 08/25/19 11:36 BP 117/64 08/25/19 11:36 Pulse Ox 97 08/25/19 11:36 Discharge Plan Discharge Patient Disposition: er SNF Condition: Stable Prescriptions: New tamsulosin 0.4 mg Capsule 0.4 mg PO DAILY 30 Days Qty: 30 RF: 0 clopidogrel 75 mg Tablet 75 mg PO DAILY 30 Days Qty: 30 RF: 2 nystatin [Nyamyc] 100,000 unit/gram Powder 1 applic topical BID 7 Days Qty: 1 RF: 0 fluticasone propionate 50 mcg/actuation [place],Suspension 1 spray nasal BID PRN (Reason: nasal drip) 7 Days Qty: 1 RF: 0 Continued metoprolol tartrate 25 mg tablet 25 mg PO BID 90 Days Qty: 180 RF: 3 metformin 1,000 mg tablet 1,000 mg PO BID Qty: 60 RF: 3 hydrochlorothiazide 25 mg tablet 25 mg PO DAILY Qty: 90 RF: 3 glimepiride 4 mg tablet 4 mg PO BID RF: 0 ergocalciferol (vitamin D2) [Vitamin D2] 50,000 unit Capsule See Rx Instructions .ROUTE .COMPLEX RF: 0 albuterol sulfate [Ventolin HFA] 90 mcg/actuation HFA aerosol inhaler 1 puff INHALATION QID PRN (Reason: Shortness Of Breath) RF: 0 fluoxetine 20 mg capsule 20 mg PO DAILY RF: 0 dicyclomine 10 mg capsule 10 mg PO TID RF: 0 budesonide-formoterol [Symbicort] 160-4.5 mcg/actuation HFA aerosol inhaler 2 puff INHALATION BID RF: 0 Invokana 300 mg tablet 300 mg PO DAILY RF: 0 Lantus U-100 Insulin 100 unit/mL Solution 13 unit SUBCUT BEDTIME RF: 0 [place] 5-325 mg Tablet 1 tab PO Q6H PRN (Reason: Pain) RF: 0 Imodium A-D 2 mg Tablet See Rx Instructions .ROUTE .COMPLEX RF: 0 nystatin 100,000 unit/gram Powder 1 applic TOPICAL BID RF: 0 Culturelle 10 billion cell Capsule 1 cap PO DAILY PRN (Reason: unknown) RF: 0 nicotine 7 mg/24 hr Patch 24 Hour 1 patch TRANSDERMAL Q24H PRN (Reason: unknown) RF: 0 Dakin's Solution 0.25 % Solution 1 irrig TOPICAL BID RF: 0 Heparin Flush 5ml-10units See Rx Instructions .ROUTE .COMPLEX RF: 0 acetaminophen 325 mg Tablet 650 mg PO Q6H PRN (Reason: Mild/Mod Pain Or Temp >/= 101) Qty: 0 RF: 0 Discontinued imipenem-cilastatin 500 mg Recon Soln See Rx Instructions .ROUTE .COMPLEX RF: 0 Discharge Orders: Discharge Order (Routine); Ordered 08/25/19 Ordered By: Inés Howard Referrals: Ector Peña MD [Family Provider] - Pancho Smith MD [Physician] - 4-7 days (at wound care clinic ) Amparo Delong MD [Physician] - 7-10 days Discharge Diet: Usual diet Discharge Activity: Resume usual activity Discharge Attestations Time Spent in Discharge Care*: other Quality Metrics Clinical Quality Measures During this hospital stay, did patient experience: None Coding Level of Care Code Acute Mailroom Messenger for g Fwd Diagnoses Diabetic foot infection E11.628; L08.9 CKD (chronic kidney disease), stage III N18.3 Critical lower limb ischemia I99.8 Cellulitis of right lower extremity L03.115 COPD (chronic obstructive pulmonary disease) J44.9 HTN (hypertension) I10 Diabetes E11.9 Peripheral vascular disease I73.9
== END 2019-08-25 15:45 | disposition skilled nursing facility (03) | DRG 629 ==
LOC: ER 11:32 → MEDSURG 12:56 → ICU 08-20 10:06 → MEDSURG 08-20 12:01 → ICU 08-22 08:52 → MEDSURG 08-22 11:52
PROVIDERS: Internal Medicine Cardiovascular Disease; Surgery; Admitting Provider Internal Medicine; Emergency Provider Family Medicine; Family Provider Internal Medicine; Visit Provider Student in an Organized Health Care Education/Training Program
DX: E11.69 Type 2 diabetes mellitus with other specified complication (principal); M86.9 Osteomyelitis, unspecified; L03.115 Cellulitis of right lower limb; Z16.23 Resistance to quinolones and fluoroquinolones; T82.898A Other specified complication of vascular prosthetic devices, implants and grafts, initial encounter; J44.9 Chronic obstructive pulmonary disease, unspecified; F32.9 Major depressive disorder, single episode, unspecified; E11.51 Type 2 diabetes mellitus with diabetic peripheral angiopathy without gangrene; E11.22 Type 2 diabetes mellitus with diabetic chronic kidney disease; I12.9 Hypertensive chronic kidney disease with stage 1 through stage 4 chronic kidney disease, or unspecified chronic kidney disease; N18.3 Chronic kidney disease, stage 3 (moderate); F17.210 Nicotine dependence, cigarettes, uncomplicated; Z89.411 Acquired absence of right great toe; B96.5 Pseudomonas (aeruginosa) (mallei) (pseudomallei) as the cause of diseases classified elsewhere; Y80.1 Therapeutic (nonsurgical) and rehabilitative physical medicine devices associated with adverse incidents; I99.8 Other disorder of circulatory system; B35.6 Tinea cruris; R33.9 Retention of urine, unspecified; Z79.891 Long term (current) use of opiate analgesic; Z79.4 Long term (current) use of insulin; K76.0 Fatty (change of) liver, not elsewhere classified; E27.9 Disorder of adrenal gland, unspecified; I25.10 Atherosclerotic heart disease of native coronary artery without angina pectoris
CPT/HCPCS: 11044; 11047; 12345; 36415; 36416; 37221; 37227; 51702; 71045; 75625; 75635; 75710; 76937; 80048; 80053; 81001; 82962; 83690; 85025; 87040; 87070; 87075; 87077; 87086; 87176; 87186; 87205; 88304; 90935; 93005; 93926; 93971; 94640; 96360; 96361; 96372; 99283; 99284; C1724; C1725; C1769; C1773; C1876; C1887; C1894; C2623; J0690; J0743; J1644; J1815; J2001; J2020; J2250; J2543; J2704; J3010; J3490; J7030; J7050; Q0163; Q9967

== ENCOUNTER → 2019-09-01 12:10 | Outpatient (BNVA) | payer MEDICARE, MEDICAID, SELFPAY | PROVIDERS: Family Provider Internal Medicine; PCP Family Medicine; Visit Provider Nurse Practitioner Family | DX: I99.8 Other disorder of circulatory system (principal); I73.9 Peripheral vascular disease, unspecified | CPT/HCPCS: 80048 ==

== ENCOUNTER 2019-09-02 08:54 | Outpatient (CLI) | payer MEDICARE, MEDICAID, SELFPAY | END 2019-09-02 08:55 | disposition home or self-care (01) | LOC: WOUND 09-05 13:25 | PROVIDERS: Family Provider Internal Medicine; PCP Family Medicine; Visit Provider Surgery | DX: E11.621 Type 2 diabetes mellitus with foot ulcer (principal); L97.513 Non-pressure chronic ulcer of other part of right foot with necrosis of muscle | CPT/HCPCS: 11044; 11047; L4387 ==

== ENCOUNTER 2019-09-09 08:47 | Outpatient (CLI) | payer MEDICARE, MEDICAID, SELFPAY | END 2019-09-09 08:48 | disposition home or self-care (01) | LOC: WOUND 08:49 | PROVIDERS: Family Provider Internal Medicine; PCP Family Medicine; Visit Provider Nurse Practitioner Family | DX: E11.621 Type 2 diabetes mellitus with foot ulcer (principal); L97.513 Non-pressure chronic ulcer of other part of right foot with necrosis of muscle | CPT/HCPCS: 11044; 11047 ==

== ENCOUNTER 2019-09-16 08:28 | Outpatient (CLI) | payer MEDICARE, MEDICAID, SELFPAY | END 2019-09-16 08:29 | disposition home or self-care (01) | LOC: WOUND 08:32 | PROVIDERS: Family Provider Internal Medicine; PCP Family Medicine; Visit Provider Surgery | DX: E11.621 Type 2 diabetes mellitus with foot ulcer (principal); L97.514 Non-pressure chronic ulcer of other part of right foot with necrosis of bone | CPT/HCPCS: 11044; 11047 ==

== ENCOUNTER 2019-09-19 11:11 | Day surgery (SDC) | payer MEDICARE, MEDICAID, SELFPAY ==
[2019-09-16 12:52] VITALS: BMI 55.3
--- NOTE | 2019-09-19 11:53 | XR_ITS ---
WS: [id number] Right leg including the tibia and fibula, 3 views, 09/19/2019 Clinical Data: History of trauma to right tibial feliciano Comparison: None. Findings: There is a healed fracture of the junction of the proximal and middle thirds of the fibula. The tibia is intact. The visualized right knee shows severe osteoarthritis especially the medial joint compart ment. The soft tissues are normal. XR/XR tibia fibula RT 2V 86118 Impression: 1. Healed fracture of proximal third of right fibula. 2. Negative right tibia.
[2019-09-19 11:58] VITALS: BP 104/54; PULSE 84; RESP 18; TEMP 36.1; O2SAT 98
--- NOTE | 2019-09-19 12:22 | W.PM.OPSUD ---
Surgery/Procedure H&P Update DATE OF PROCEDURE: September 19, 2019 DATE H&P PERFORMED: 09/16/19 H&P UPDATE INFORMATION: I have reviewed H&P completed within last 30 days, I have examined patient prior to procedure and No changes to prior documentation PREOP DIAGNOSIS: Right lower extremity wounds PRIMARY INDICATION FOR PROCEDURE: The same PLANNED PROCEDURE: Operation Date: 09/19/19 13:15 Proposed Procedures p Debridement right lower extrimty wound(Right) - Pancho Smith MD
[2019-09-19] MEDS: sodium chloride 0.9% 1,000 ML 30 ML IV (12:30)
[2019-09-19 12:49] LABS: Glucose Point of Care 150 mg/dL (70-110)
--- NOTE | 2019-09-19 12:54 | ANES.PREANE2 ---
Pre-Anesthetic Assessment Pre-Anesthetic Assessment: Height/Weight: Height 1.4 m Weight 107.955 kg Temp Pulse Resp BP Pulse Ox 97.0 F L 84 18 104/54 98 09/19/19 11:58 09/19/19 11:58 09/19/19 11:58 09/19/19 11:58 09/19/19 11:58 Preop Diagnosis: Right lower extremity wounds Proposed Procedure: Operation Date: 09/19/19 13:15 Proposed Procedures p Debridement right lower extrimty wound(Right) - Pancho Smith MD Familial anesthetic complications: None Was Beta Tim taken within 24 hours: Yes Last intake: Intake NPO > 8 hrs Last Liquid Date 09/18/19 Last Solid Date 09/18/19 Social: Social History: No alcohol and No tobacco Comment: former smoker Exam: Pre-Anes Outpt Exam: alert, oriented x 3, clear to auscultation bilaterally and regular rate & rhythm Airway: Cervical ROM: WNL MP: 4 Dentition: False Pulmonary: Pulmonary: COPD (2 L NC at night) and Cough CV/HEM: CV/HEM: HTN Comments: unable to tell me why he takxes plavix or when he last took : : None reported Hepatic: Hepatic: None reported GI: GI: None reported Metabolic: Metabolic: DM Musc/skel: Musc/skel: None reported Neuropsych: Neuropsych: None reported Anesthetic Plan: ASA status: 3 Anesthesia: MAC Risk of > 500 ml blood loss (7ml/kg in children): No PFSH Anesthesia PFSH: Medical History CKD (chronic kidney disease), stage III COPD (chronic obstructive pulmonary disease) Depression Diabetes HTN (hypertension) Smoking addiction Surgical History Status post amputation of great toe Family History Other Healthy adult Social History Smoking and tobacco status: former smoker Alcohol intake: never Lives independently: Yes Household members: none Marital status: Single Current occupational status: retired Data Anesthesia Other Labs: Laboratory Results - last 48 hr 09/19/19 12:47 POC Glucose 150 Cardiac Studies: No Data to Display
--- NOTE | 2019-09-19 14:28 | P.OP_ITS ---
Operative Report Date of procedure: September 19, 2019 Pre-op Diagnosis: Right lower extremity wounds Post-op diagnosis: other (Right diabetic foot wound and wound of the right tibial chin) Post-op Findings: Wound #1 of right tibial chin Measurements post by 2 x [address] to muscle layer Wound #2 is the right diabetic foot wound Pre-debridement measurements 9.5 x 3.8 x 2.[address] to the bone Post debridement measurements 10.5 x 4 x 3 cm Procedure Done: Sharp debridement of right lower extremity wounds and escharectomy of wound #1 right tibial chin wound Implants: Large piece of Surgicel Backing with Kerlix impregnated and lidocaine 2% Specimens removed/disposition: Tissues obtained from wound #1 right tibial chin sent for Surgeon: Pancho Smith Surgical Garment Assembly Supervisor: cv tech rene Circulating nurse Verena SORENSEN Anesthesia: MAC (Calvin Mendoza) Estimated blood loss (mL): 5 Complications: No immediate complication Condition: stable Disposition: same day Brief History: This is a pleasant 68 years old gentleman with well-known history of complicated right diabetic foot wound patient is well-known to me from previous clinical encounters and that he was seen and evaluated at the wound care center by myself, overall wound of the right foot has been improving yet there were some residual necrotic tissues in addition that the patient had fell on the chin of the right tibia and developed clinically what was concerning for abscess formation and he would not tolerate debridement bedside, I elected to have the patient come to the OR for debridement of both. An x-ray was requested prior to the procedure and did show: 1. Healed fracture of proximal third of right fibula. 2. Negative right tibia. As patient has been recently had a stent of the right lower extremity and has been on chronic Plavix I elected to keep him on Plavix to prevent occlusion of the stent. Informed consent per chart Procedure: After identifying the patient holding area, the right lower extremity was marked before the procedure by myself, patient was then taken to the operative suite,was placed in supine position,IV antibiotics were given per protocol,IV propofol was infused by the anesthesia provider,prep and drape of the wound region was done under the usual sterile technique. Time-out was done verifying the patient's name/date of /planned procedure and destination after the procedure, all were in agreement. Started by excising the unhealthy necrotic indurated tissues of the right diabetic foot wound.Incision was created at the skin level and went all the way down to the Bone proximal Tarsal bone, sharp debridement was done all the way to the healthier tissue. Pre-debridement measurements 9.5 x 3.8 x 2.[address] to the bone Post debridement measurements 10.5 x 4 x 3 cm There was no purulent discharge or surrounding cellulitis, yet there was some necrotic tissues at the base of the right second toe that was debrided as well. Hemostasis was achieved followed by irrigation using Pulsavac 3 L.There was some minor oozing towards the distal part of the wound I elected to place [id number] 3-0 Vicryl for hemostasis. Attention was deviated to the wound of the right tibial chin were escharectomy was done and measurements showed after sharp debridement: Wound #1 of right tibial chin Measurements post by 2 x 3 cm x0[address] to the muscle layer The wound bed at this point looks healthier and irrigation then hemostasis was achieved using Bovie cauterization and placement small piece of Surgicel. Packing with Kerlix impregnated and 2% lidocaine followed by ABD Kerlix.Then Horace wrap Patient tolerated the procedure well, count of instruments,needles and sponges were completed at the end of the procedure. And then patient was taken to the recovery area in stable condition. I was present for the whole entire procedure
[2019-09-19 14:33] VITALS: BP 133/86; PULSE 70; RESP 18; TEMP 36.6; O2SAT 100
[2019-09-19 15:03] VITALS: BP 145/73; PULSE 72; RESP 18; O2SAT 96
[2019-09-19] MEDS: HYDROcodone-acetaminophen 5-325 mg Tablet 1 TAB PO (15:16)
== END 2019-09-19 15:20 | disposition home or self-care (01) ==
PROVIDERS: PCP Family Medicine; Visit Provider Surgery
PROC: (CPT 11043; principal; 2019-09-19 13:15)
DX: E11.621 Type 2 diabetes mellitus with foot ulcer (principal); L97.815 Non-pressure chronic ulcer of other part of right lower leg with muscle involvement without evidence of necrosis; L97.516 Non-pressure chronic ulcer of other part of right foot with bone involvement without evidence of necrosis; J44.9 Chronic obstructive pulmonary disease, unspecified; E11.22 Type 2 diabetes mellitus with diabetic chronic kidney disease; I12.9 Hypertensive chronic kidney disease with stage 1 through stage 4 chronic kidney disease, or unspecified chronic kidney disease; N18.9 Chronic kidney disease, unspecified; Z87.891 Personal history of nicotine dependence
CPT/HCPCS: 11043; 11044; 11047; 12345; 36416; 73590; 82962; 88304; J2704; J3010; J7030

== ENCOUNTER 2019-09-23 08:46 | Outpatient (CLI) | payer MEDICARE, MEDICAID, SELFPAY | END 2019-09-23 08:47 | disposition home or self-care (01) | LOC: WOUND 08:47 | PROVIDERS: PCP Family Medicine; Visit Provider Surgery | DX: E11.621 Type 2 diabetes mellitus with foot ulcer (principal); L97.514 Non-pressure chronic ulcer of other part of right foot with necrosis of bone; E11.622 Type 2 diabetes mellitus with other skin ulcer; L97.815 Non-pressure chronic ulcer of other part of right lower leg with muscle involvement without evidence of necrosis | CPT/HCPCS: 11043; 11044; 11047 ==

== ENCOUNTER 2019-09-30 08:39 | Outpatient (CLI) | payer MEDICARE, MEDICAID, SELFPAY | END 2019-09-30 08:40 | disposition home or self-care (01) | LOC: WOUND 08:41 | PROVIDERS: PCP Family Medicine; Visit Provider Surgery | DX: E11.621 Type 2 diabetes mellitus with foot ulcer (principal); L97.513 Non-pressure chronic ulcer of other part of right foot with necrosis of muscle; E11.622 Type 2 diabetes mellitus with other skin ulcer; L97.812 Non-pressure chronic ulcer of other part of right lower leg with fat layer exposed | CPT/HCPCS: 11043; 11044; 11047 ==

== ENCOUNTER 2019-10-04 14:36 | Outpatient (CLI) | payer MEDICARE, MEDICAID, SELFPAY | END 2019-10-04 14:37 | disposition home or self-care (01) | LOC: WOUND 14:37 | PROVIDERS: PCP Family Medicine; Visit Provider Thoracic Surgery (Cardiothoracic Vascular Surgery) | DX: E11.621 Type 2 diabetes mellitus with foot ulcer (principal); L97.513 Non-pressure chronic ulcer of other part of right foot with necrosis of muscle; E11.622 Type 2 diabetes mellitus with other skin ulcer; L97.812 Non-pressure chronic ulcer of other part of right lower leg with fat layer exposed | CPT/HCPCS: 11042; 11045; 97605 ==

== ENCOUNTER 2019-10-07 14:51 | Outpatient (CLI) | payer MEDICARE, MEDICAID, SELFPAY | END 2019-10-07 14:52 | disposition home or self-care (01) | LOC: WOUND 14:52 | PROVIDERS: PCP Family Medicine; Visit Provider Surgery | DX: E11.621 Type 2 diabetes mellitus with foot ulcer (principal); L97.514 Non-pressure chronic ulcer of other part of right foot with necrosis of bone; E11.622 Type 2 diabetes mellitus with other skin ulcer; L97.812 Non-pressure chronic ulcer of other part of right lower leg with fat layer exposed | CPT/HCPCS: 11043; 11044; 11047; 97605 ==

== ENCOUNTER 2019-10-11 15:19 | Outpatient (CLI) | payer MEDICARE, MEDICAID, SELFPAY | END 2019-10-11 15:20 | disposition home or self-care (01) | LOC: WOUND 15:23 | PROVIDERS: PCP Family Medicine; Visit Provider Thoracic Surgery (Cardiothoracic Vascular Surgery) | DX: E11.621 Type 2 diabetes mellitus with foot ulcer (principal); L97.512 Non-pressure chronic ulcer of other part of right foot with fat layer exposed; E11.622 Type 2 diabetes mellitus with other skin ulcer; L97.812 Non-pressure chronic ulcer of other part of right lower leg with fat layer exposed | CPT/HCPCS: 97605 ==

== ENCOUNTER 2019-10-14 14:30 | Outpatient (CLI) | payer MEDICARE, MEDICAID, SELFPAY | END 2019-10-14 14:31 | disposition home or self-care (01) | LOC: WOUND 14:32 | PROVIDERS: PCP Family Medicine; Visit Provider Surgery | DX: E11.621 Type 2 diabetes mellitus with foot ulcer (principal); L97.514 Non-pressure chronic ulcer of other part of right foot with necrosis of bone; E11.622 Type 2 diabetes mellitus with other skin ulcer; L97.812 Non-pressure chronic ulcer of other part of right lower leg with fat layer exposed | CPT/HCPCS: 11042; 11043; 11046; 97605 ==

== ENCOUNTER 2019-10-18 08:46 | Outpatient (CLI) | payer MEDICARE, MEDICAID, SELFPAY | END 2019-10-18 08:47 | disposition home or self-care (01) | LOC: WOUND 08:52 | PROVIDERS: PCP Family Medicine; Visit Provider Thoracic Surgery (Cardiothoracic Vascular Surgery) | DX: E11.621 Type 2 diabetes mellitus with foot ulcer (principal); L97.512 Non-pressure chronic ulcer of other part of right foot with fat layer exposed; E11.622 Type 2 diabetes mellitus with other skin ulcer; L97.812 Non-pressure chronic ulcer of other part of right lower leg with fat layer exposed | CPT/HCPCS: 97605 ==

== ENCOUNTER 2019-10-21 09:46 | Outpatient (CLI) | payer MEDICARE, MEDICAID, SELFPAY | END 2019-10-21 09:47 | disposition home or self-care (01) | LOC: WOUND 09:48 | PROVIDERS: PCP Family Medicine; Visit Provider Surgery | DX: E11.621 Type 2 diabetes mellitus with foot ulcer (principal); L97.514 Non-pressure chronic ulcer of other part of right foot with necrosis of bone; E11.622 Type 2 diabetes mellitus with other skin ulcer; L97.812 Non-pressure chronic ulcer of other part of right lower leg with fat layer exposed | CPT/HCPCS: 11042; 11044; 97605 ==

== ENCOUNTER 2019-10-25 07:55 | Outpatient (CLI) | payer MEDICARE, MEDICAID, SELFPAY | END 2019-10-25 07:56 | disposition home or self-care (01) | LOC: WOUND 07:58 | PROVIDERS: PCP Family Medicine; Visit Provider Thoracic Surgery (Cardiothoracic Vascular Surgery) | DX: E11.621 Type 2 diabetes mellitus with foot ulcer (principal); L97.516 Non-pressure chronic ulcer of other part of right foot with bone involvement without evidence of necrosis; E11.622 Type 2 diabetes mellitus with other skin ulcer; L97.812 Non-pressure chronic ulcer of other part of right lower leg with fat layer exposed | CPT/HCPCS: 97605 ==

== ENCOUNTER 2019-10-28 08:50 | Outpatient (CLI) | payer MEDICARE, MEDICAID, SELFPAY | END 2019-10-28 08:51 | disposition home or self-care (01) | LOC: WOUND 09:00 | PROVIDERS: PCP Family Medicine; Visit Provider Surgery | DX: E11.621 Type 2 diabetes mellitus with foot ulcer (principal); L97.513 Non-pressure chronic ulcer of other part of right foot with necrosis of muscle; E11.622 Type 2 diabetes mellitus with other skin ulcer; L97.812 Non-pressure chronic ulcer of other part of right lower leg with fat layer exposed | CPT/HCPCS: 11043 ==

== ENCOUNTER 2019-11-01 14:57 | Outpatient (CLI) | payer MEDICARE, MEDICAID, SELFPAY | END 2019-11-01 14:58 | disposition home or self-care (01) | LOC: WOUND 14:58 | PROVIDERS: PCP Family Medicine; Visit Provider Thoracic Surgery (Cardiothoracic Vascular Surgery) | DX: E11.621 Type 2 diabetes mellitus with foot ulcer (principal); L97.515 Non-pressure chronic ulcer of other part of right foot with muscle involvement without evidence of necrosis; E11.622 Type 2 diabetes mellitus with other skin ulcer; L97.812 Non-pressure chronic ulcer of other part of right lower leg with fat layer exposed | CPT/HCPCS: 97605 ==

== ENCOUNTER 2019-11-08 14:31 | Outpatient (CLI) | payer MEDICARE, MEDICAID, SELFPAY | END 2019-11-08 14:32 | disposition home or self-care (01) | LOC: WOUND 14:32 | PROVIDERS: PCP Family Medicine; Visit Provider Surgery | DX: Z51.89 Encounter for other specified aftercare (principal) | CPT/HCPCS: G0463 ==

== ENCOUNTER 2019-11-11 09:36 | Outpatient (CLI) | payer MEDICARE, MEDICAID, SELFPAY | END 2019-11-11 09:37 | disposition home or self-care (01) | LOC: WOUND 09:37 | PROVIDERS: PCP Family Medicine; Visit Provider Surgery | DX: E11.621 Type 2 diabetes mellitus with foot ulcer (principal); L97.513 Non-pressure chronic ulcer of other part of right foot with necrosis of muscle | CPT/HCPCS: 11042 ==

== ENCOUNTER 2019-11-18 10:05 | Outpatient (CLI) | payer MEDICARE, MEDICAID, SELFPAY | END 2019-11-18 10:06 | disposition home or self-care (01) | LOC: WOUND 10:06 | PROVIDERS: PCP Family Medicine; Visit Provider Surgery | DX: E11.621 Type 2 diabetes mellitus with foot ulcer (principal); L97.513 Non-pressure chronic ulcer of other part of right foot with necrosis of muscle | CPT/HCPCS: 11042 ==

== ENCOUNTER 2019-11-25 10:31 | Outpatient (CLI) | payer MEDICARE, MEDICAID, SELFPAY | END 2019-11-25 10:32 | disposition home or self-care (01) | LOC: WOUND 10:33 | PROVIDERS: PCP Family Medicine; Visit Provider Surgery | DX: E11.621 Type 2 diabetes mellitus with foot ulcer (principal); L97.512 Non-pressure chronic ulcer of other part of right foot with fat layer exposed | CPT/HCPCS: 11042 ==

== ENCOUNTER 2019-12-02 13:31 | Outpatient (CLI) | payer MEDICARE, MEDICAID, SELFPAY | END 2019-12-02 13:32 | disposition home or self-care (01) | LOC: WOUND 13:33 | PROVIDERS: PCP Family Medicine; Visit Provider Surgery | DX: E11.621 Type 2 diabetes mellitus with foot ulcer (principal); L97.512 Non-pressure chronic ulcer of other part of right foot with fat layer exposed | CPT/HCPCS: 11042 ==

== ENCOUNTER 2019-12-09 13:48 | Outpatient (CLI) | payer MEDICARE, MEDICAID, SELFPAY | END 2019-12-09 13:49 | disposition home or self-care (01) | LOC: WOUND 13:49 | PROVIDERS: PCP Family Medicine; Visit Provider Thoracic Surgery (Cardiothoracic Vascular Surgery) | DX: E11.621 Type 2 diabetes mellitus with foot ulcer (principal); L97.512 Non-pressure chronic ulcer of other part of right foot with fat layer exposed | CPT/HCPCS: 11042 ==

== ENCOUNTER 2019-12-16 14:21 | Outpatient (CLI) | payer MEDICARE, MEDICAID, SELFPAY | END 2019-12-16 14:22 | disposition home or self-care (01) | LOC: WOUND 14:21 | PROVIDERS: PCP Family Medicine; Visit Provider Surgery | DX: E11.621 Type 2 diabetes mellitus with foot ulcer (principal); L97.512 Non-pressure chronic ulcer of other part of right foot with fat layer exposed | CPT/HCPCS: 11042 ==

== ENCOUNTER 2019-12-23 15:02 | Outpatient (CLI) | payer MEDICARE, MEDICAID, SELFPAY | END 2019-12-23 15:03 | disposition home or self-care (01) | LOC: WOUND 15:05 | PROVIDERS: PCP Family Medicine; Visit Provider Surgery | DX: E11.621 Type 2 diabetes mellitus with foot ulcer (principal); L97.512 Non-pressure chronic ulcer of other part of right foot with fat layer exposed | CPT/HCPCS: 11042 ==

== ENCOUNTER 2019-12-30 09:55 | Outpatient (CLI) | payer MEDICARE, MEDICAID, SELFPAY | END 2019-12-30 09:56 | disposition home or self-care (01) | LOC: WOUND 09:56 | PROVIDERS: PCP Family Medicine; Visit Provider Surgery | DX: E11.621 Type 2 diabetes mellitus with foot ulcer (principal); L97.512 Non-pressure chronic ulcer of other part of right foot with fat layer exposed | CPT/HCPCS: 11042 ==

== ENCOUNTER 2020-01-06 08:52 | Outpatient (CLI) | payer MEDICARE, MEDICAID, SELFPAY | END 2020-01-06 08:53 | disposition home or self-care (01) | LOC: WOUND 08:53 | PROVIDERS: PCP Family Medicine; Visit Provider Surgery | DX: E11.621 Type 2 diabetes mellitus with foot ulcer (principal); L97.512 Non-pressure chronic ulcer of other part of right foot with fat layer exposed | CPT/HCPCS: 11042 ==

== ENCOUNTER 2020-01-13 08:31 | Outpatient (CLI) | payer MEDICARE, MEDICAID, SELFPAY | END 2020-01-13 08:32 | disposition home or self-care (01) | LOC: WOUND 08:32 | PROVIDERS: PCP Family Medicine; Visit Provider Surgery | DX: E11.621 Type 2 diabetes mellitus with foot ulcer (principal); L97.512 Non-pressure chronic ulcer of other part of right foot with fat layer exposed | CPT/HCPCS: 11042 ==

== ENCOUNTER 2020-01-20 08:25 | Outpatient (CLI) | payer MEDICARE, MEDICAID, SELFPAY | END 2020-01-20 08:26 | disposition home or self-care (01) | LOC: WOUND 08:26 | PROVIDERS: PCP Family Medicine; Visit Provider Nurse Practitioner Family | DX: E11.621 Type 2 diabetes mellitus with foot ulcer (principal); L97.512 Non-pressure chronic ulcer of other part of right foot with fat layer exposed | CPT/HCPCS: 11042 ==

== ENCOUNTER 2020-02-03 09:08 | Outpatient (CLI) | payer MEDICARE, MEDICAID, SELFPAY | END 2020-02-03 09:09 | disposition home or self-care (01) | LOC: WOUND 09:11 | PROVIDERS: PCP Family Medicine; Visit Provider Surgery | DX: E11.621 Type 2 diabetes mellitus with foot ulcer (principal); L97.512 Non-pressure chronic ulcer of other part of right foot with fat layer exposed | CPT/HCPCS: 11042 ==

== ENCOUNTER 2020-02-10 09:19 | Outpatient (CLI) | payer MEDICARE, MEDICAID, SELFPAY ==
--- NOTE | 2020-02-10 15:10 | USCV_ITS ---
EvelynjohnnaCecilio Age: 69 Gender: M : 1950 Exam Date: 02/10/2020 15:21 Ordering Phys: Pancho Smith MD Technologist: Mary Beckman Exam Location: [facility] [place] Indication: NONHEALING ULCER HISTORY: Lower extremity swelling. PROCEDURES: Venous duplex imaging was performed in only the right lower extremity. The following venous structures were evaluated: common femoral vein, profunda vein, proximal portion of the greater saphenous vein, superficial femoral vein, and the popliteal vein. In addition, the posterior tibial and peroneal trunk were evaluated. FINDINGS: Normal 2-D Doppler and augmentation and compressibility throughout the lower extremity venous structures. Additional imaging through the proximal calf veins also reveals no thrombus. Limited evaluation of the greater saphenous vein is patent with no thrombus. CONCLUSIONS No DVT right lower extremity. Dr. Rosio Shah DO (Electronically Signed) Final Date: 13 February 2020 08:17 S
== END 2020-02-10 09:20 | disposition home or self-care (01) ==
LOC: WOUND 09:21
PROVIDERS: PCP Family Medicine; Visit Provider Surgery
DX: E11.621 Type 2 diabetes mellitus with foot ulcer (principal); L97.512 Non-pressure chronic ulcer of other part of right foot with fat layer exposed; E11.622 Type 2 diabetes mellitus with other skin ulcer; L97.812 Non-pressure chronic ulcer of other part of right lower leg with fat layer exposed
CPT/HCPCS: 11042; 93971

== ENCOUNTER 2020-02-17 09:01 | Outpatient (CLI) | payer MEDICARE, MEDICAID, SELFPAY | END 2020-02-17 09:02 | disposition home or self-care (01) | LOC: WOUND 09:04 | PROVIDERS: PCP Family Medicine; Visit Provider Surgery | DX: E11.621 Type 2 diabetes mellitus with foot ulcer (principal); L97.512 Non-pressure chronic ulcer of other part of right foot with fat layer exposed | CPT/HCPCS: 11042 ==